=== PATIENT | female | born 1955 | race Caucasian/White ===

== ENCOUNTER 2024-07-01 17:49 | Inpatient (IN) | payer MEDICARE, SELFPAY ==
[2024-07-01] VITALS (10 sets, daily range): BP systolic 108–148; BP diastolic 50–86; BMI 43.4
--- NOTE | 2024-07-01 13:37 | ED.GENMED ---
History of Present Illness
General
Chief Complaint: Weakness
Source: patient
Time Seen by Provider: 07/01/24 13:19
History of Present Illness
History of Present Illness:
69yoF with a history of hypertension, insulin dependent type 2 diabetes, CKD, and prior L nephrectomy 2/2 renal cell carcinoma currently in remission presenting for evaluation of generalized weakness. She initially started with a cough about 2
weeks ago. She had a fever the first several days which resolved. Her cough is improving. She started to have generalized weakness and difficulty ambulating about 3 days ago. She has fallen several times over the past 3 days. She states she
becomes dizzy while ambulating and then falls to the ground. She denies any loss of consciousness. She also feels dehydrated and states her urine output is slightly decreased. Patient currently lives alone.
Phy Exam
General Physical Exam
General Presentation: well appearing and no apparent distress
General age: appears stated age
General Skin: warm and dry
General Habitus: normal
General Mental: alert
ENT Exam
ENT Exam: other (Ecchymosis/small hematoma to R frontal scalp)
Additional ENT: Dry mucous membranes
Cardiovascular Exam
Cardiovascular Exam: regular rate/rhythm
Pulmonary Exam
Pulmonary Exam: lungs clear, no respiratory distress, no wheezing and decreased breath sounds
Gastrointestinal Exam
Gastrointestinal Exam: non tender, soft and non distended
Barbara Coma Scale
Eye Opening: Spontaneous
Verbal Response: Oriented
Motor Response: Obeys Commands
GCS Total Score: 15
Skin Exam
Skin Exam: normal color and warm/dry
Psychiatric Exam
Psychiatric Exam: normal mood/affect
Course
Orders/Labs/Results
Orders:
Orders
07/01/24 13:26
EKG [Electrocardiogram (*1)] Urgent
Reason for Study: Fatigue / Weakness
EKG- Treatment ONCE
07/01/24 13:35
0.9% Sodium Chloride 1000 ml [Nss] 1,000 ml IV BOLUS
CR Shoulder - Right Min 2 View Urgent
Comment:
Reason For Exam: Pain, fall
07/01/24 13:36
CT Head W/o Iv Contrast Urgent
Comment:
Reason For Exam: Fall, head injury
CR Chest - 2 Views Urgent
Comment:
Reason For Exam: Cough
07/01/24 13:37
CT Abd/pel Without Iv Or Oral Urgent
Comment:
Reason For Exam: R flank pain
07/01/24 13:48
B-Hydroxybutyrate Urgent
Complete Blood Count/With Diff Urgent
Comprehensive Metabolic Panel Urgent
Magnesium Urgent
TSH Reflex To Free T4 Urgent
Troponin I Urgent
Venous Blood Gas Urgent
%Oxygen/Room Air: room air
07/01/24 14:24
0.9% Sodium Chloride 1000 ml [Nss] 1,000 ml IV BOLUS
07/01/24 Dinner
1800 calorie (15 carb) Diabetic
Cefepime HCl [Maxipime] 2,000 mg IV NOW STA
07/01/24 15:01
Vancomycin [Vancocin] 2,000 mg 0.9% Sodium Chloride 500 ml [Nss] 500 ml IV NOW
07/01/24 15:05
Bedside Glucose- Treatment ONCE
07/01/24 15:22
Urinalysis Reflex To Culture Urgent
Date Specimen was Collected: 07/01/24
Time Specimen was Collected: 15:20
Urine Microscopic Reflex Cult Urgent
Urine Culture Urgent
ANGELA Source: U
Specimen Description:
Obtained by: Random
Date Specimen was Collected: 07/01/24
Time Specimen was Collected: 15:20
07/01/24 15:36
Insulin Human Regular [Novolin R] 10 units IV NOW STA
07/01/24 15:51
Lactate Level [Lactic Acid] Urgent
Blood Culture Q30M
ANGELA Source: Blood/Venous
Specimen Description:
Blood Culture Q30M
ANGELA Source: Blood/Venous
Specimen Description:
07/01/24 17:13
Admit/Transfer Patient As Directed
Co-Sign Provider:
Level of Care: Inpatient admission
Assign to:: IMU- Intermediate Care
Physician / Group: Hospitalist
Diagnosis: Sepsis, RLL PNA
Reason for Hospitalization: Sepsis, RLL PNA
Expected length of stay greater than two midnights?: Yes
ELOS- Estimated Length of Stay in days: 3
I certify the patient meets the requirements for IP care: Yes
PRN Pain Medication Management As Directed
May give lesser potent ordered pain med per pt: Yes
preference::
Protocol:: Medication orders for pain may be administered in a
manner that supports deferring to patient preference
when the pt is:
- Requesting an ordered lesser potent pain medication.
Least to most potent pain medications are defined
as: acetaminophen < NSAID < tramadol < opioids
(morphine, oxycodone, hydromorphone).
- Requesting a lesser dose of the same medication IF
ORDERED.
- Requesting a less intrusive route of administration
if both routes are prescribed by the provider (PO <
IV).
07/01/24 17:15
Code Status As Directed
Resuscitation Status: Full Code
07/01/24 19:44
0.9% Sodium Chloride 1000 ml [Nss] 1,000 ml IV 150 mls/hr
Azithromycin 500 mg/250 ml [Zithromax Infusion] 500 mg in 250 ml IV Q24H
CefTRIAXone [Rocephin] 1,000 mg IV Q24H
Dextrose 50%-Water [Dextrose 50% Syringe] 12.5 grams IV [id number] PRN
Glucagon [GlucaGen] 1 mg IM PRN PRN
Rosuvastatin Calcium [Crestor] 40 mg PO QPM
07/01/24 19:44
Respiratory Culture/Gram Stain Routine
ANGELA Source: Sputum
Specimen Description:
Activity As Directed
Activity Level: Out of Bed-Early Mobility
Bedside Glucose Monitoring As Directed
Frequency: q4h
Additional Instructions:: Change to q6h if pt on TPN, tube feeding or not eating
Intake/ Output As Directed
Frequency: Per unit guidelines
Pneumatic Compression Sleeves As Directed
Type: Knee high
Vital Signs As Directed
Frequency: Per unit guidelines
Weight As Directed
Frequency: Once
Comment: on admission
Pt Eval And Treat Routine
Treatment: eval gait
Activity Level: With Assistance
DX Deep Vein Thrombosis Video Routine
07/01/24 20:00
Bupropion(12Hr)Sustain Release [WELLBUTRIN SR (12 hour sustained release)] 150 mg PO BID
Labetalol [Trandate] 200 mg PO BID
07/01/24 22:00
insulin glargine [Lantus Solostar U-100 Insulin] 20 unit SC HS
07/01/24 23:15
Basic Metabolic Panel Routine
07/02/24 06:00
Complete Blood Count/No Diff IN AM
Comprehensive Metabolic Panel IN AM
Glycohemoglobin (HgbA1c) IN AM
07/02/24 07:30
Insulin Aspart High Resistance [Novolog Flexpen-High Resistance] See Protocol SC AC
07/02/24 08:00
Aspirin Low Dose EC [Aspir Low (Enteric Coated)] 81 mg PO DAILY
Bumetanide [Bumex] 0.5 mg PO DAILY
Losartan [Cozaar] 100 mg PO DAILY
Multivitamin [Theragran] 1 tablet PO DAILY
07/03/24 08:00
Ergocalciferol [Drisdol (Vitamin D2)] DOSE units PO MO
Abnormal Lab Results
07/01/24 07/01/24 07/01/24
13:48 15:22 17:29
WBC 21.0 H 10^3/uL
(4.8-10.8)
MCV 79.0 L fL
(81.0-99.0)
RDW 15.2 H %
(11.5-14.5)
Abs Immat Gran (auto) 0.4 H 10^3/uL
(0-0.05)
Absolute Neuts (auto) 18.6 H 10^3/uL
(1.4-6.5)
Absolute Lymphs (auto) 0.8 L 10^3/uL
(1.2-3.4)
Absolute Monos (auto) 1.0 H 10^3/uL
(0.1-0.6)
Immature Gran % 1.9 H %
(0-0.5)
Neutrophils % 88.6 H %
(42.2-75.2)
Lymphocytes % 4.0 L %
(20.5-51.1)
Potassium 5.6 H mmol/L
(3.5-5.1)
Chloride 96 L mmol/L
(98-107)
Carbon Dioxide 19 L mmol/L
(22-30)
BUN 69 H mg/dl
(7-17)
Creatinine 2.7 H mg/dL
(0.6-1.0)
Glucose 488 H* mg/dl
(70-99)
ALT 38 H U/L
(0-35)
Ur Occult Blood Reflex 3+ A
(Negative)
Leukocyte Esterase Rfl 1+ A
(Negative)
Urine RBC 7-10 A /HPF
(0-2)
Urine WBC (Reflex) 26-30 A /HPF
(0-5)
Urine Bacteria (Reflex) Moderate A
(Negative)
Urine Glucose 3+ A
(Negative)
Urine Albumin (Reflex) 1+ A
(Neg - Trace)
B-Hydroxybutyrate 0.66 H mmol/L
(0.02-0.27)
POC Glucose 331 H mg/dl
(70-99)
07/01/24 13:48
07/01/24 13:48
Vital Signs
Initial and Last Documented VS:
Initial Vital Signs
Temp Pulse Resp BP Pulse Ox
97.7 F 68 18 135/84 95
07/01/24 13:18 07/01/24 13:18 07/01/24 13:18 07/01/24 13:18 07/01/24 13:18
Last Documented Vital Signs
Temp Pulse Resp BP Pulse Ox
97.7 F 82 24 112/73 95
07/01/24 13:18 07/01/24 19:00 07/01/24 19:00 07/01/24 19:00 07/01/24 18:00
MDM/Problems Addressed
Differential Diagnosis Includes:
69yoF here with generalized weakness and frequent falls x 3 days. Started with a cough 2 weeks ago and R flank pain last week. She is afebrile and stable. She has chronically ill appearing in no acute distress. Mucous membranes are dry. There is
a right frontal scalp contusion. Differential diagnosis includes but is not limited to: Dehydration, UTI, kidney stone, pneumonia, failure to thrive, less likely but consider PE
Initial ED plan: Check cardiac labs, VBG, beta hydroxybutyrate, magnesium, UA, EKG, chest x-ray, CT head, and CT abdomen pelvis without contrast. IV fluid bolus.
*EKG
Interpreted by ED Provider?: Yes
EKG Intrepretation Date: 07/01/24
Heart Rate: 63
Rate: normal
Rhythm: sinus
[place]: normal axis
Interval: normal interval
QRS Pattern: normal QRS
Ischemia: no ischemia
*Critical Care Note
Total Time (30-74mins, 75-104mins- exclusive of procedures): Not Applicable
Update Note
Update Note:
Labs reveal a glucose of 488. Venous pH within normal limits and urine ketones are negative. Creatinine 2.7, unclear baseline. Imaging shows right lower lobe pneumonia with a small parapneumonic effusion. White count elevated at 21. Lactate,
blood cultures, and IV cefepime/vancomycin ordered. She was admitted for further evaluation and management.
ED Attending Note
-
Portions of this chart may have been created with voice recognition software.� Occasional wrong word or��sound alike� substitutions may have occurred due to the inherent limitations of voice recognition software.
Discharge Plan
Departure
Patient Disposition: Admit
Date of Disposition: 07/01/24
Time of Disposition: 15:40
Presentation/result/management discussed w/ accepting MD/DO: Hospitalist
Discharge Problem:
Right lower lobe pneumonia, Hyperglycemia, Acute kidney injury, Frequent falls
Interventions
Interventions:
*Risk Screen - Suicide Last Done: 07/01/24 13:41
*General Assessment Last Done: 07/01/24 13:40
*Neglect/Abuse Screening Last Done: 07/01/24 13:41
ED- Fall Risk Assessment Last Done: 07/01/24 13:28
*ED COVID-19 Vaccine History Last Done: 07/01/24 13:40
ED- Cardiac Assessment Last Done: 07/01/24 13:28
ED- Neurological Assessment Last Done: 07/01/24 13:28
ED- Pulmonary Assessment Last Done: 07/01/24 13:28
[2024-07-01] MEDS: NSS 1000 IV ×3 (13:44→20:16)
[2024-07-01 13:59] LABS: Venous Blood Gas B.E. -3.3 mmol/L (-4 to +4); Venous Blood Gas HCO3 22.1 mmol/L (22-27); Venous Blood Gas O2 Sat % 70.4 %; Venous Blood Gas pCO2 40 mmHg (35-48); Venous Blood Gas pH 7.35 (7.32-7.43); Venous Blood Gas pO2 41 mmHg (30-50)
[2024-07-01 14:02] LABS: Venous Blood Gas O2 Therapy ROOM AIR
[2024-07-01 14:14] LABS: % Basophils 0.3 % (0-2); % Eosinophils 0.3 % (0-6); % Immature Granulocytes 1.9 % (0-0.5); % Monocytes 4.9 % (1.7-9.3); % Neutrophils 88.6 % (42.2-75.2); Absolute Basophils 0.1 10^3/uL (0-0.2); Absolute Eosinophils 0.1 10^3/uL (0-0.7); Absolute Immature Granulocytes 0.4 10^3/uL (0-0.05); Absolute Lymphocytes 0.8 10^3/uL (1.2-3.4); Absolute Neutrophils 18.6 10^3/uL (1.4-6.5); Hematocrit 39.2 % (37.0-47.0); Hemoglobin 13.6 g/dL (12.0-16.0); Mean Corp Hgb Conc. 34.7 g/dL (33.0-37.0); Mean Corpuscular Hgb 27.4 pg (27.0-31.0); Nucleated Red Blood Cells % 0 %; Platelet Count 216 10^3/uL (130-400); Red Blood Cell Count 4.96 10^6/uL (4.20-5.40); Red Cell Dist. Width 15.2 % (11.5-14.5)
[2024-07-01 14:20] LABS: Troponin I < 0.012 ng/ml
[2024-07-01 14:21] LABS: ALT (SGPT) 38 U/L (0-35); AST (SGOT) 33 U/L (14-36); Albumin 4.3 g/dl (3.5-5.0); Alkaline Phosphatase 122 U/L (38-126); Blood Urea Nitrogen 69 mg/dl (7-17); Calcium 10.2 mg/dl (8.4-10.2); Carbon Dioxide 19 mmol/L (22-30); Chloride 96 mmol/L (98-107); Estimated Creatinine Clearance 24 ml/min; Glucose 488 mg/dl (70-99); Magnesium 2.3 mg/dl (1.6-2.3); Potassium 5.6 mmol/L (3.5-5.1); Sodium 136 mmol/L (135-145); Total Protein 8.1 g/dl (6.3-8.2); eGFR 18.52
[2024-07-01 14:40] LABS: B-Hydroxybutyrate 0.66 mmol/L (0.02-0.27)
[2024-07-01 14:46] LABS: TSH Reflex To Free T4 1.44 uIU/ml (0.47-4.68)
[2024-07-01 15:29] LABS: Urine Albumin 1+ (Neg - Trace); Urine Bilirubin Negative (Negative); Urine Character Slightly Cloudy (Clear); Urine Color Yellow; Urine Glucose 3+ (Negative); Urine Ketone Negative (Negative); Urine Leukocyte 1+ (Negative); Urine Nitrite Negative (Negative); Urine Occult Blood 3+ (Negative); Urine Urobilinogen Negative (Neg - 1+)
[2024-07-01 15:38] LABS: Urine Granular Cast 0-2 /LPF (0)
[2024-07-01 15:39] LABS: Urine Bacteria Moderate (Negative); Urine White Cell 26-30 /HPF (0-5)
[2024-07-01] MEDS: VANCOCIN 540 MG IV (15:45)
[2024-07-01] MEDS: MAXIPIME 2000 MG IV (16:07)
[2024-07-01] MEDS: NOVOLIN R 10 UNITS IV (16:08)
[2024-07-01 16:17] LABS: Lactic Acid 1.7 mmol/L (0.7-2.0)
--- NOTE | 2024-07-01 16:47 | HPS.HSE ---
Family Physician
-
Family Physician: Maury Harman
Chief Complaint
-
Cough
History of Present Illness
69yo woman with a history of:
hypertension,
insulin dependent type 2 diabetes,
CKD
prior L nephrectomy 2/2 renal cell carcinoma (currently in remission)
presents for evaluation of generalized weakness. She also started with a cough about 2 weeks ago. She had a fever which resolved. Her cough is improving. However, she started to have generalized weakness and difficulty ambulating about 3 days
ago. She has fallen several times over the past 3 days. She states she becomes dizzy while ambulating and then fell to the ground. She denies any loss of consciousness. She also feels she is dehydrated and states that her urine output is
slightly decreased. At the time of my interview, she stated she had right flank pain, and was able to speak in full sentences. She usually gets her care at a different hospital.
Medical History
Past Medical History
Past Medical History: Reports Other
Additional Past Medical History:
essential hypertension,
insulin dependent type 2 diabetes,
CKD,
prior L nephrectomy 2/2 renal cell carcinoma (currently in remission)
Past Surgical History: Reports Other
Additional Past Surgical History:
See above
Social History
Tobacco: Non-smoker
Alcohol: None
Drug: None
Personal: Single
Living: Alone
Family History
Family History: Not pertinent
Allergies / Home Medications
Allergies reflects when Allergies were last updated in [employer].
Home Medications with original date entered in [employer]
Allergy/Medication List:
Allergies
Allergy/AdvReac Type Severity Reaction Status Date / Time
No Known Allergies Allergy Verified 07/01/24 13:18
Home Medications
aspirin 81 mg tablet,delayed release 81 mg PO DAILY 07/01/24
bumetanide 0.5 mg tablet 0.5 mg PO DAILY 07/01/24
bupropion HCl 150 mg tablet,12 hr sustained-release (Wellbutrin SR) 150 mg PO BID 07/01/24
ergocalciferol (vitamin D2) 1,250 mcg (50,000 unit) capsule 1,250 mcg PO MO 07/01/24
insulin glargine 100 unit/mL (3 mL) subcutaneous pen (Lantus Solostar U-100 Insulin) 20 unit SC HS 07/01/24
insulin lispro 100 unit/mL subcutaneous solution 15 unit SC AC 07/01/24
labetalol 200 mg tablet 200 mg PO BID 07/01/24
losartan 100 mg tablet 100 mg PO DAILY 07/01/24
rosuvastatin 40 mg tablet (Crestor) 40 mg PO QPM 07/01/24
therapeutic multivitamin 1 tab PO DAILY 07/01/24
Review of Systems
-
History Source: Patient
A 12 point ROS was completed and negative except as noted: Yes
Physical Exam
Vital Signs
Vital Signs
Temp Pulse Resp BP Pulse Ox
97.7 F 68 18 135/84 95
07/01/24 13:18 07/01/24 13:18 07/01/24 13:18 07/01/24 13:18 07/01/24 13:18
Physical Exam
General: Well Developed, Well Nourished, No Apparent Distress, Comfortable and Morbidly Obese
HEENT: NormoCephalic, Nose Appears Normal and Ears Appear Normal
Respiratory: Crackles (right side) and Decreased Breath Sounds
Cardiac: S1/S2 and Regular Rhythm
GI: Soft and Non Tender
Musculoskeletal: No Clubbing and No Cyanosis
Skin: Warm and Dry; No Rash or Jaundice
Neuro: Awake, Alert, Oriented and AO x 3
Psych: Calm
Laboratory Results
-
07/01/24 13:48
07/01/24 13:48
Laboratory Results
Lactic Acid 1.7 mmol/L (0.7-2.0) 07/01/24 15:51
Total Bilirubin 1.0 mg/dl (0.2-1.3) 07/01/24 13:48
AST 33 U/L (14-36) 07/01/24 13:48
ALT 38 U/L (0-35) H 07/01/24 13:48
Alkaline Phosphatase 122 U/L (38-126) 07/01/24 13:48
Troponin I < 0.012 ng/ml 07/01/24 13:48
Data Reviewed
-
Lab Data: Labs Reviewed by me
Impression/Plan
-
IMPRESSION:
69 woman with IDDM, CKD, comes in with PNA. Significant finding:
WBC 21.0
K 5.6
BUN/Creat 69/2.7
Glucose 488
CT: RLL PNA, Diverticulosis, Fibroids. Hepatomegaly, head contusion and hematoma
PLAN:
1. Sepsis, source RLL PNA, WBC 21.0
IV abx and IV fluids per sepsis protocol
Stepdown admit
2. Acute on chronic renal failure - baseline BUN/Creat not known, currently 69/2.7
IV fluids as described above
Recheck in am
3. Elevated blood glucose, 488, VBG ok. Likely secondary to acute illness
IV glucose in ED
SQ glucose thereafter
Check FS frequently
DM diet
4. Elevated K - likey from renal failure
IV fluids
recheck tonight
5. Not a regular patient here.
Obtain medical records from PCP/Usual hospital
Full code
VCD for DVTp
[2024-07-01 17:34] LABS: Glucose - Point of Care 331 mg/dl (70-99)
[2024-07-01 19:00] LABS: Glucose - Point of Care 308 mg/dl (70-99)
--- NOTE | 2024-07-01 20:00 | PTCARENOTE ---
Patient received from ED, AAOX3. NSR on monitor, trace lower extremity edema. Lungs diminished bilaterally, pulse ox 93% on room air. Occasional cough noted. Abdomen round obese. Purewick maintained. #18 g in RFA flushed and patent. Plan of
care discussed, call mckinley within reach
[2024-07-01] MEDS: CRESTOR 40 MG PO (20:16)
[2024-07-01] MEDS: TRANDATE 200 MG PO (20:16)
[2024-07-01] MEDS: ZITHROMAX INFUSION 250 IV (20:16)
[2024-07-01] MEDS: TYLENOL 650 MG PO (21:22)
[2024-07-01] MEDS: WELLBUTRIN SR (12 hour sustained release) 150 MG PO (21:22)
[2024-07-01] MEDS: LANTUS 0.2 UNITS SC (21:28)
[2024-07-01 21:39] LABS: Glucose - Point of Care 372 mg/dl (70-99)
[2024-07-01 23:39] LABS: Blood Urea Nitrogen 61 mg/dl (7-17); Calcium 9.1 mg/dl (8.4-10.2); Carbon Dioxide 20 mmol/L (22-30); Chloride 104 mmol/L (98-107); Estimated Creatinine Clearance 33 ml/min; Glucose 355 mg/dl (70-99); Sodium 139 mmol/L (135-145); eGFR 28.23
[2024-07-02] VITALS (17 sets, daily range): BP systolic 70–139; BP diastolic 55–88; PULSE 82–85; O2SAT 94; BMI 41.9
[2024-07-02] MEDS: NSS 1000 IV ×2 (02:57→09:14)
[2024-07-02 04:39] LABS: Hematocrit 33.5 % (37.0-47.0); Hemoglobin 11.5 g/dL (12.0-16.0); Mean Corp Hgb Conc. 34.3 g/dL (33.0-37.0); Mean Corpuscular Hgb 27.6 pg (27.0-31.0); Mean Corpuscular Volume 80.5 fL (81.0-99.0); Mean Platelet Volume 9.2 fL (7.4-10.4); Platelet Count 182 10^3/uL (130-400); Red Blood Cell Count 4.16 10^6/uL (4.20-5.40); Red Cell Dist. Width 15.1 % (11.5-14.5); White Blood Cell Count 17.3 10^3/uL (4.8-10.8)
[2024-07-02 05:13] LABS: ALT (SGPT) 29 U/L (0-35); AST (SGOT) 28 U/L (14-36); Albumin 3.3 g/dl (3.5-5.0); Alkaline Phosphatase 92 U/L (38-126); Blood Urea Nitrogen 53 mg/dl (7-17); Carbon Dioxide 18 mmol/L (22-30); Chloride 108 mmol/L (98-107); Estimated Creatinine Clearance 35 ml/min; Glucose 317 mg/dl (70-99); Potassium 4.9 mmol/L (3.5-5.1); Sodium 142 mmol/L (135-145); Total Bilirubin 0.7 mg/dl (0.2-1.3); Total Protein 6.5 g/dl (6.3-8.2); eGFR 30.12
[2024-07-02] MEDS: STERILE WATER FOR INJECTION 10 ML IV (07:22)
[2024-07-02] MEDS: TYLENOL 650 MG PO ×2 (07:22→20:11)
[2024-07-02] MEDS: ROCEPHIN 1000 MG IV (07:22)
[2024-07-02] MEDS: COZAAR 100 MG PO (07:23)
[2024-07-02] MEDS: BUMEX 0.5 MG PO (07:23)
[2024-07-02] MEDS: ASPIR LOW (ENTERIC COATED) 81 MG PO (07:24)
[2024-07-02] MEDS: TRANDATE 200 MG PO (07:24)
[2024-07-02] MEDS: WELLBUTRIN SR (12 hour sustained release) 150 MG PO ×2 (07:24→20:10)
[2024-07-02] MEDS: THERAGRAN 1 TABLET PO (07:29)
[2024-07-02 08:33] LABS: Glycohemoglobin (HgbA1c) 12.7 % (4.0-5.6)
[2024-07-02 08:58] LABS: Glucose - Point of Care 352 mg/dl (70-99)
[2024-07-02] MEDS: NOVOLOG FLEXPEN-HIGH RESISTANCE 12 UNITS SC (09:13)
[2024-07-02 13:06] LABS: Glucose - Point of Care 323 mg/dl (70-99)
[2024-07-02] MEDS: NOVOLOG FLEXPEN-HIGH RESISTANCE 10 UNITS SC (13:17)
[2024-07-02] MEDS: NOVOLOG FLEXPEN 15 UNITS SC ×2 (13:17→17:24)
--- NOTE | 2024-07-02 13:59 | PTCARENOTE ---
Pt received in bed @ 0700. Assisted oob to chair with minimal assistance. PRN Tylenol given for 5/10 right flank pain associated coughing with (+) effect. SaO2 94% on room air. Lungs diminished. Diminished. Occasional nonproductive cough. Not able
to produce sputum for sample. Sinus rhythm on hospital monitor. Trace LE edema. BSC x1, brown formed bowel movement. Voiding antonio urine into BSC. 1800 diabetic diet. High blood sugars. Meal time insulin increased to 15 units standing and high
sliding scale. Pt with orthostatic hypotension working with PT; using rolling walker x1 with ambulation. Remains oob in chair. Orders to downgrade to telemetry.
--- NOTE | 2024-07-02 15:24 | W.PN.HOSP.TC ---
Today's Communication/Plan
-
see note
Assessment / Plan
Assessment / Plan
1. Right lower lobe pneumonia
Sepsis -leukocytosis/Hypotension -POA
-CT abdomen pelvis showing right lower lobe consolidation on imaging
-Check covid
-Patient to have some dry cough no significant phlegm production.
-Maintain on empiric Rocephin/azithromycin
-Hold blood pressure medication providing IV fluid boluses and midodrine
2. ISAAC on presumed CKD
Left nephrectomy with h/o RCC
-Patient creatinine unknown. Admission creatinine of 2.7 yesterday, trending down and 1.8
-Likely related to volume depletion/hypotension related
-Bladder scan/straight cath protocol ordered
-Avoid nephrotoxic medication
3. Type 2 diabetes mellitus -uncontrolled
-Patient hemoglobin A1c of 12.7
-Managed by primary care physician, in process of seeing endocrinology
-Maintained on Lantus with NovoLog 15 unit AC and sliding scale
-Diabetes respiratory center consulted for further help
4. Essential hypertension
-Hold losartan/labetalol due to hypotension/ISAAC
-Resume as clinically appropriate
5. Chronic back pain
Right foot numbness
-Suspected lumbar radiculopathy has diabetic neuropathy is usually symmetric
-CT abdomen pelvis showing did not show any major spinal changes
-Good palpable pulse on lower extremity, arterial Doppler ordered
6. HLD
- maintain on crestor
7. Orthostatic hypotension
-Patient had orthostatic hypotension and had low blood pressure when with standing up
-hold BP Medication, LE compression stockings/midodrine ordered
SCD
Full code
Total time spent 55 minutes
Transferred to [facility]
Anticipated Discharge: 24 - 48 hours
Subjective/Interval History
-
Date of Service: July 02, 2024
Complaining some back pain and RLE numbness
have some right sided chest pain
afebrile in night
have soft BP in the morning
Objective Data
-
Labs:
Laboratory Results
07/02/24
04:32
WBC 17.3 H
Hgb 11.5 L
Hct 33.5 L
Plt Count 182
Sodium 142
Potassium 4.9
Chloride 108 H
Carbon Dioxide 18 L
BUN 53 H
Creatinine 1.8 H
Glucose 317 H
Calcium 9.0
Total Bilirubin 0.7
AST 28
ALT 29
Alkaline Phosphatase 92
Vital Signs:
Vital Signs
Temp Pulse Resp BP Pulse Ox
98.3 F 86 24 84/71 94
07/02/24 11:40 07/02/24 08:44 07/02/24 08:44 07/02/24 08:44 07/02/24 13:32
Review of Systems
-
Respiratory: Reports Cough and Pleurisy (Right sided)
Cardiac: Reports No Symptoms
Abdomen/GI: Reports No Symptoms
Physical Exam
-
General: No Apparent Distress and Comfortable
HEENT: Negative Oxygen
Respiratory: Clear to Auscultation
Cardiac: Regular Rhythm and S1/S2; Negative Murmur or Rub
GI: Soft, Nontender, Nondistended and Normal Bowel Sounds
Musculoskeletal: No Edema
Neuro: Awake, Alert, Oriented, No Motor Deficits and Nonfocal/Grossly Intact
Psych: Calm
[2024-07-02 16:38] LABS: COVID-19 Antigen Negative (Negative)
[2024-07-02 17:11] LABS: Glucose - Point of Care 263 mg/dl (70-99)
[2024-07-02] MEDS: NOVOLOG FLEXPEN-HIGH RESISTANCE 7 UNITS SC (17:24)
[2024-07-02] MEDS: CRESTOR 40 MG PO (17:50)
[2024-07-02] MEDS: ProAmatine 10 MG PO (17:50)
[2024-07-02] MEDS: ZITHROMAX INFUSION 250 IV (20:11)
[2024-07-02] MEDS: LANTUS 0.2 UNITS SC (21:28)
[2024-07-02 21:37] LABS: Glucose - Point of Care 238 mg/dl (70-99)
[2024-07-02] MEDS: MUCINEX 600 MG PO (21:52)
[2024-07-02] MEDS: TESSALON PERLES 200 MG PO (21:52)
--- NOTE | 2024-07-03 00:02 | PTCARENOTE ---
Report given to VINICIO Hancock. Pt transferred via wheelchair to [facility]2. No belongings except cell phone- transferred w/ patient.
[2024-07-03 00:16] VITALS: BP 152/77; BMI 43.5
--- NOTE | 2024-07-03 00:20 | PTCARENOTE ---
Patient transferred from IMU. Patient AOx3, able to walk into room from hallway. Assessed patient (see flowsheet) and oriented to new room. call mckinley within reach. Safety maintained. No questions at this time.
[2024-07-03] MEDS: TESSALON PERLES 200 MG PO ×3 (02:52→22:03)
[2024-07-03] MEDS: TYLENOL 650 MG PO (02:54)
--- NOTE | 2024-07-03 07:01 | PN.DE.MGMTRT ---
Insulin Management
- -
07/03/2024: Diabetes Management Consult
69 year old female admitted with Right lower lobe pneumonia. PMH: HTN, Renal cell carcinoma s/p L nephrectomy and T2DM. Pt states was taking Lantus 20 units @ HS and Lispro 15 units AC prior to admission. Has a working meter- [employer] with enough
supplies at home. States her PCP recommended she starts seeing the Endocrine [facility] next to the hospital. Provided her with name of practice and encouraged her to call as soon as she is feeling better.
A1C 12.7% Cr 1.7, eGFR 32.26, glucose on admission was 488 and has consistently remained elevated >200.
Pt awake, alert, oriented, sitting up at edge of bed, noted for exertional SOB and cough. Able to discuss diabetes mgt.
07/02 Premeal glucose 263 to 352, requiring 7 -12 units of corrective insulin. Received Lantus 20 units @ HS, FBG 278 (V) this AM.
Will change Lantus to 20 units BOD and increase AC NovoLog to 20 units. Cont moderate corrective insulin
Will check 3am blood sugar. Place Dietary consult for nutrition counseling.
Will follow and make further insulin adjustments if needed
Diabetes History
- -
Type of Diabetes: 2 requiring insulin
Pre-Admission Diabetes Regimen
Lab Results
Hemoglobin A1c 12.7 % (4.0-5.6) H 07/02/24 04:32
Insulin Pump Settings
IP Diabetes Regimen
07/02/24 07/02/24 07/02/24
08:47 12:55 17:00
POC Glucose 352 H 323 H 263 H
07/02/24
21:26
POC Glucose 238 H
Patient Education
[2024-07-03 07:14] LABS: Hematocrit 35.1 % (37.0-47.0); Hemoglobin 11.9 g/dL (12.0-16.0); Mean Corp Hgb Conc. 33.9 g/dL (33.0-37.0); Mean Corpuscular Hgb 27.7 pg (27.0-31.0); Mean Corpuscular Volume 81.6 fL (81.0-99.0); Mean Platelet Volume 8.8 fL (7.4-10.4); Platelet Count 196 10^3/uL (130-400); Red Cell Dist. Width 15.5 % (11.5-14.5); White Blood Cell Count 16.8 10^3/uL (4.8-10.8)
[2024-07-03 07:38] VITALS: BP 137/80
[2024-07-03 08:01] LABS: Blood Urea Nitrogen 43 mg/dl (7-17); Calcium 9.6 mg/dl (8.4-10.2); Carbon Dioxide 22 mmol/L (22-30); Chloride 103 mmol/L (98-107); Estimated Creatinine Clearance 37 ml/min; Glucose 278 mg/dl (70-99); Iron 29 ug/dl (37-170); Potassium 4.8 mmol/L (3.5-5.1); Sodium 141 mmol/L (135-145); eGFR 32.26
[2024-07-03] MEDS: NOVOLOG FLEXPEN-HIGH RESISTANCE 278 UNITS SC (08:05)
[2024-07-03] MEDS: NOVOLOG FLEXPEN 15 UNITS SC (08:06)
[2024-07-03] MEDS: WELLBUTRIN SR (12 hour sustained release) 150 MG PO ×2 (08:07→20:27)
[2024-07-03] MEDS: THERAGRAN 1 TABLET PO (08:08)
[2024-07-03] MEDS: STERILE WATER FOR INJECTION 10 ML IV (08:08)
[2024-07-03] MEDS: ASPIR LOW (ENTERIC COATED) 81 MG PO (08:08)
[2024-07-03] MEDS: MUCINEX 600 MG PO ×2 (08:08→20:27)
[2024-07-03] MEDS: ROCEPHIN 1000 MG IV (08:09)
[2024-07-03] MEDS: DRISDOL (VITAMIN D2) 50000 UNITS PO (08:16)
[2024-07-03 08:22] LABS: Glucose - Point of Care 285 mg/dl (70-99)
[2024-07-03 08:38] VITALS: BP 137/80
--- NOTE | 2024-07-03 08:51 | W.PN.HOSP.TC ---
Today's Communication/Plan
-
Antibiotics. Chest x-ray. Echocardiogram
Assessment / Plan
Assessment / Plan
Physical exam:
General: Acutely ill
HEENT: Normocephalic, Atraumatic and Moist Mucous Membranes
Respiratory: Decreased breath sounds at the bases; Negative Wheezes, Rales or Rhonchi
Cardiac: Regular Rhythm and S1/S2
GI: Soft, Nontender and Nondistended
Musculoskeletal: No Clubbing, No Cyanosis and No Edema
Neuro: Awake, Alert and Oriented
Psych: Calm
A/P:
1. Probable right lower lobe pneumonia, concerns for parapneumonic effusion, rule out empyema or loculated effusion
Probable sepsis -leukocytosis/Hypotension -POA
-CT abdomen pelvis showing right lower lobe consolidation on imaging
-Check covid
-Patient to have some dry cough no significant phlegm production.
-Maintain on empiric Rocephin/azithromycin
-Stop midodrine
-No IV fluid
-Obtain chest x-ray PA lateral to evaluate interval pneumonia and effusion
-Obtain echocardiogram
-WBC 21--> 16.8 today
-Blood cultures no growth
-UA abnormal upon admission
2. ISAAC on presumed CKD
Left nephrectomy with h/o RCC
-Patient creatinine unknown. Admission creatinine of 2.7--> down to 1.7 today
-Continue to hold ARB, losartan
-Likely related to volume depletion/hypotension related
-Bladder scan/straight cath protocol ordered
-Avoid nephrotoxic medication
3. Type 2 diabetes mellitus -uncontrolled
-Patient hemoglobin A1c of 12.7
-Managed by primary care physician, in process of seeing endocrinology
-Maintained on Lantus with NovoLog 15 unit AC and sliding scale--> increased to Lantus 20 units twice a day and NovoLog 20 units before meal
-Diabetes [employer] consulted for further help
4. Essential hypertension
-Hold losartan/labetalol due to hypotension/ISAAC
-Resume as clinically appropriate
5. Chronic back pain
Right foot numbness
-Suspected lumbar radiculopathy has diabetic neuropathy is usually symmetric
-CT abdomen pelvis showing did not show any major spinal changes
-Good palpable pulse on lower extremity, arterial Doppler ordered
6. HLD
- maintain on crestor
7. Orthostatic hypotension
-Patient had orthostatic hypotension and had low blood pressure when with standing up
-hold BP Medication, LE compression stockings
-Blood pressure on the high side today so discontinue midodrine but recheck orthostatics twice a day to see if she needs to be back on it.
DVT prophylaxis:
SCD and add heparin SQ
CODE STATUS:
Full code
Total time spent on today's encounter was 52 minutes which included time spent in counseling the patient/family regarding diagnosis and treatment plan as listed above, goals of care, and symptom management. Case was discussed with nursing staff,
specialists, and care coordinators/case management. All labs and imaging personally reviewed by me. Remainder the time spent in detailed review of previous records, lab data, imaging, and other medical provider documentation.
Anticipated Discharge: 24 - 48 hours
Subjective/Interval History
-
Date of Service: July 03, 2024
Patient still having some cough and some shortness of breath. Feeling weak overall. Afebrile
Objective Data
-
Labs:
Laboratory Results
07/03/24
06:59
WBC 16.8 H
Hgb 11.9 L
Hct 35.1 L
Plt Count 196
Sodium 141
Potassium 4.8
Chloride 103
Carbon Dioxide 22
BUN 43 H
Creatinine 1.7 H
Glucose 278 H
Calcium 9.6
Vital Signs:
Vital Signs
Temp Pulse Resp BP Pulse Ox
98.2 F 94 18 137/80 94
07/03/24 07:38 07/03/24 07:38 07/03/24 07:38 07/03/24 07:38 07/03/24 07:38
I&O
07/02/24 07/03/24 07/04/24
06:59 06:59 06:59
Intake Total 2189 / 2189
Balance 2189
[2024-07-03] MEDS: LANTUS 0.2 UNITS SC ×2 (09:36→22:04)
[2024-07-03] MEDS: ProAmatine PO ×2 (11:30→13:31)
[2024-07-03 11:44] LABS: Glucose - Point of Care 320 mg/dl (70-99)
[2024-07-03] MEDS: NOVOLOG FLEXPEN 20 UNITS SC ×2 (13:31→17:38)
[2024-07-03] MEDS: NOVOLOG FLEXPEN-HIGH RESISTANCE 10 UNITS SC (13:31)
[2024-07-03 14:45] VITALS: BP 131/65
--- NOTE | 2024-07-03 15:03 | CM ---
Alert awake oriented patient who lives alone in a condo with 1 step to enter.She is independent in driving and in all activities of daily living.She has a dagt Selene that lives near by. PT OT jah said VN VS SNF.She said that her brother Zachery from
[place] will stay with her after dc.
No adaptive devices
Never had VN/SNF
Pharmacy [facility]
PCP Dr Taylor
PLAN VN VS SNF
[2024-07-03 15:09] VITALS: BP 148/84; BP 166/76; PULSE 101; O2SAT 95
[2024-07-03] MEDS: HEPARIN 5000 UNITS SC ×2 (17:38→23:18)
[2024-07-03] MEDS: CRESTOR 40 MG PO (17:38)
[2024-07-03] MEDS: NOVOLOG FLEXPEN-HIGH RESISTANCE 7 UNITS SC (17:39)
[2024-07-03 17:42] LABS: Glucose - Point of Care 264 mg/dl (70-99)
[2024-07-03] MEDS: ZITHROMAX INFUSION 250 IV (20:26)
[2024-07-03 21:12] LABS: Glucose - Point of Care 290 mg/dl (70-99)
[2024-07-03 23:57] VITALS: BP 158/83
[2024-07-04 04:07] LABS: Glucose - Point of Care 249 mg/dl (70-99)
--- NOTE | 2024-07-04 07:15 | PN.DE.MGMTRT ---
Insulin Management
- -
07/04/2024: Diabetes Management Consult Follow up
69 year old female admitted with Right lower lobe pneumonia. PMH: HTN, Renal cell carcinoma s/p L nephrectomy and T2DM. Pt states was taking Lantus 20 units @ HS and Lispro 15 units AC prior to admission. Has a working meter- OneTouch with enough
supplies at home. States her PCP recommended she starts seeing the Endocrine group next to the hospital. Provided her with name of practice and encouraged her to call as soon as she is feeling better.
A1C 12.7% Cr 1.7, eGFR 32.26, glucose on admission was 488 and has consistently remained elevated >200.
Pt awake, alert, oriented, sitting out of bed. Able to discuss diabetes mgt. Her primary is Dr. Stephen Harman.
07/03 Lantus dose was changed to BID, patient received AM dose 07/03. Premeal glucose 264 to 320, requiring 7 -12 units of corrective insulin.
07/04 4am glucose 249. Cr 1.6, eGFR 34.70. Diet changed today from 1800 to 1600 calorie, BID lantus increased from 20 units to 25 units. AC novolog changed from 20 to 25 units with moderate corrective insulin.
Will follow and make further insulin adjustments if needed
I spoke with patients nurse regarding changes.
Diabetes History
- -
Type of Diabetes: 2 requiring insulin
Pre-Admission Diabetes Regimen
07/03/24
06:59
Creatinine 1.7 H
Lab Results
Hemoglobin A1c 12.7 % (4.0-5.6) H 07/02/24 04:32
Insulin Pump Settings
IP Diabetes Regimen
07/03/24 07/03/24 07/03/24
06:59 08:21 11:43
Glucose 278 H
POC Glucose 285 H 320 H
07/03/24 07/03/24 07/04/24
17:40 21:11 04:05
Glucose
POC Glucose 264 H 290 H 249 H
Meal type: Lunch
Meal type: Breakfast
Amount consumed: 100%
Amount consumed: 100%
Patient Education
[2024-07-04 07:25] VITALS: BP 133/61
[2024-07-04 07:27] LABS: Hematocrit 38.1 % (37.0-47.0); Hemoglobin 12.8 g/dL (12.0-16.0); Mean Corp Hgb Conc. 33.6 g/dL (33.0-37.0); Mean Corpuscular Hgb 27.9 pg (27.0-31.0); Mean Corpuscular Volume 83.2 fL (81.0-99.0); Platelet Count 230 10^3/uL (130-400); Red Blood Cell Count 4.58 10^6/uL (4.20-5.40); Red Cell Dist. Width 15.1 % (11.5-14.5); White Blood Cell Count 19.1 10^3/uL (4.8-10.8)
[2024-07-04 07:34] LABS: Blood Urea Nitrogen 36 mg/dl (7-17); Calcium 9.6 mg/dl (8.4-10.2); Carbon Dioxide 17 mmol/L (22-30); Chloride 105 mmol/L (98-107); Estimated Creatinine Clearance 40 ml/min; Glucose 266 mg/dl (70-99); Potassium 4.1 mmol/L (3.5-5.1); Sodium 141 mmol/L (135-145)
[2024-07-04 07:55] LABS: Glucose - Point of Care 289 mg/dl (70-99)
[2024-07-04] MEDS: NOVOLOG FLEXPEN-MODERATE RESISTANCE 5 UNITS SC ×2 (08:05→12:41)
[2024-07-04] MEDS: NOVOLOG FLEXPEN 25 UNITS SC ×3 (08:06→17:51)
[2024-07-04] MEDS: LANTUS 0.25 UNITS SC ×2 (08:07→21:09)
[2024-07-04] MEDS: ROCEPHIN 1000 MG IV (08:08)
[2024-07-04] MEDS: MUCINEX 600 MG PO ×2 (08:08→19:37)
[2024-07-04] MEDS: ASPIR LOW (ENTERIC COATED) 81 MG PO (08:08)
[2024-07-04] MEDS: STERILE WATER FOR INJECTION 10 ML IV (08:08)
[2024-07-04] MEDS: HEPARIN 5000 UNITS SC ×3 (08:08→22:59)
[2024-07-04] MEDS: THERAGRAN 1 TABLET PO (08:09)
[2024-07-04] MEDS: WELLBUTRIN SR (12 hour sustained release) 150 MG PO ×2 (08:09→19:38)
[2024-07-04] MEDS: FLUSH (NSS) 1 FLUSH IV (08:09)
[2024-07-04] MEDS: TESSALON PERLES 200 MG PO ×2 (08:19→16:43)
--- NOTE | 2024-07-04 08:30 | W.PN.HOSP.TC ---
Addendum entered and electronically signed by Rajendra Acosta MD 07/04/24 13:39:
Hyperkalemia, POA, now resolved
Original Note:
Today's Communication/Plan
-
ID consult. Restart IV fluids. Continue antibiotics
Assessment / Plan
Assessment / Plan
Physical exam:
General: Acutely ill
HEENT: Normocephalic, Atraumatic and Moist Mucous Membranes
Respiratory: Decreased breath sounds at the bases; Negative Wheezes, Rales or Rhonchi
Cardiac: Regular Rhythm and S1/S2
GI: Soft, Nontender and Nondistended
Musculoskeletal: No Clubbing, No Cyanosis and No Edema
Neuro: Awake, Alert and Oriented
Psych: Calm
A/P:
1. Probable right lower lobe pneumonia, concerns for parapneumonic effusion, rule out empyema or loculated effusion
Probable sepsis -leukocytosis/Hypotension -POA
-CT abdomen pelvis showing right lower lobe consolidation on imaging
-Check covid
-Patient to have some dry cough no significant phlegm production.
-Maintain on empiric Rocephin/azithromycin
-Stop midodrine
-No IV fluid
-Obtained chest x-ray PA lateral to evaluate interval pneumonia and effusion on 07/03-->persistent or worse consolidation so we will ask ID to see.
-Will obtain ID consult
-Obtain echocardiogram normal ejection fraction and no significant valvulopathy
-WBC 21--> 16.8-->19.1 today
-Blood cultures no growth
-UA abnormal upon admission
2. ISAAC on presumed CKD
Left nephrectomy with h/o RCC
-Patient creatinine unknown. Admission creatinine of 2.7--> down to 1.6 today
-Will restart gentle IV fluid today on 07/04
-Continue to hold ARB, losartan
-Likely related to volume depletion/hypotension related
-Bladder scan/straight cath protocol ordered
-Avoid nephrotoxic medication
3. Type 2 diabetes mellitus -uncontrolled
-Patient hemoglobin A1c of 12.7
-Managed by primary care physician, in process of seeing endocrinology
-Maintained on Lantus with NovoLog 15 unit AC and sliding scale--> increased to Lantus 20 units twice a day and NovoLog 20 units before meal
-Diabetes [employer] consulted for further help
4. Essential hypertension
-Hold losartan/labetalol due to hypotension/ISAAC
-Resume as clinically appropriate
5. Chronic back pain
Right foot numbness
-Suspected lumbar radiculopathy has diabetic neuropathy is usually symmetric
-CT abdomen pelvis showing did not show any major spinal changes
-Good palpable pulse on lower extremity, arterial Doppler ordered
6. HLD
- maintain on crestor
7. Orthostatic hypotension
-Patient had orthostatic hypotension and had low blood pressure when with standing up
-hold BP Medication, LE compression stockings
-Blood pressure on the high side today so discontinue midodrine but recheck orthostatics twice a day to see if she needs to be back on it.
DVT prophylaxis:
SCD and add heparin SQ
CODE STATUS:
Full code
Total time spent on today's encounter was 52 minutes which included time spent in counseling the patient/family regarding diagnosis and treatment plan as listed above, goals of care, and symptom management. Case was discussed with nursing staff,
specialists, and care coordinators/case management. All labs and imaging personally reviewed by me. Remainder the time spent in detailed review of previous records, lab data, imaging, and other medical provider documentation.
Anticipated Discharge: 24 - 48 hours
Subjective/Interval History
-
Date of Service: July 04, 2024
Patient feels slightly better today. Afebrile.
Objective Data
-
Labs:
Laboratory Results
07/04/24
06:08
WBC 19.1 H
Hgb 12.8
Hct 38.1
Plt Count 230
Sodium 141
Potassium 4.1
Chloride 105
Carbon Dioxide 17 L
BUN 36 H
Creatinine 1.6 H
Glucose 266 H
Calcium 9.6
Vital Signs:
Vital Signs
Temp Pulse Resp BP Pulse Ox
98.9 F 96 18 133/61 96
07/04/24 07:25 07/04/24 07:25 07/04/24 07:25 07/04/24 07:25 07/04/24 08:04
I&O
07/03/24 07/04/24 07/05/24
06:59 06:59 06:59
Intake Total 2189 / 0 890 / 890
Balance 0 / 0 890 / 890
--- NOTE | 2024-07-04 08:50 | PN.CDI ---
CDI
- -
CDI:
Physician Documentation Request
Admit Date: 07/01/24 17:49
Dear Doctor Karla,
Please review the following and provide your response in the progress notes.
Clinical Indicators:
H+P, 07/01
#4. Elevated K - likey from renal failure
#...IV fluids
Laboratory Tests
07/01/24 07/01/24 07/02/24
13:48 23:13 04:32
Potassium 5.6 H 5.0 4.9
07/03/24 07/04/24
06:59 06:08
Potassium 4.8 4.1
Based on the above, please clarify in the progress notes, the appropriate diagnosis, if significant, that supports the above abnormalities and additional evaluation, monitoring and/or treatment rendered:
Hyperkalemia, POA, now resolved
Abnormal lab value, clinically insignificant
Other(please specify)
Use of terms such as suspected, likely, concern for, or probable (associated with a specific diagnosis that is being evaluated, monitored, or treated as if it exists) are acceptable and can be coded in the inpatient setting, when documented at the
time of discharge.
Thank you,
Dang Alba RN BSN CCDS
CDI Specialist
please contact via tiger text
Please use your independent medical judgment in providing your response.
[2024-07-04 09:22] VITALS: BP 100/63; BP 133/61; PULSE 109; PULSE 96
[2024-07-04 10:29] VITALS: BP 132/59; PULSE 86
[2024-07-04 11:58] LABS: Glucose - Point of Care 254 mg/dl (70-99)
[2024-07-04] MEDS: NSS 1000 IV ×2 (13:31→22:59)
[2024-07-04] MEDS: TRANDATE 100 MG PO ×2 (13:34→21:16)
[2024-07-04 15:32] VITALS: BP 116/71
--- NOTE | 2024-07-04 15:50 | PTCARENOTE ---
pt AAO x3, BRASWELL well, OOB in chair/ambulatory robin BR with occ assistance/occ uses walker, pt sl unsteady w/OOB activity but denies dizziness. VSS. On room air- pulse ox 94%, pt with (+) tachypnea/AREVALO; has occ coughing episodes; Tessalon perles
given as ordered prn with good effect. Abd obese, soft, jesenia PO well. Voiding in BR without difficulty. IVF's NSS @ 85 ml/hr infusing via Rt forearm site without sx of infiltration. Resting in bed at present. Will continue to monitor.
[2024-07-04 16:45] LABS: Glucose - Point of Care 232 mg/dl (70-99)
[2024-07-04] MEDS: CRESTOR 40 MG PO (17:50)
[2024-07-04] MEDS: NOVOLOG FLEXPEN-MODERATE RESISTANCE 3 UNITS SC (17:51)
[2024-07-04] MEDS: ZITHROMAX 500 MG PO (19:37)
[2024-07-04] MEDS: TRANDATE PO (19:38)
[2024-07-04 21:08] LABS: Glucose - Point of Care 217 mg/dl (70-99)
[2024-07-04 23:39] VITALS: BP 105/65; BP 111/73; BP 113/69; PULSE 102; PULSE 84; PULSE 86
--- NOTE | 2024-07-05 07:11 | PN.DE.MGMTRT ---
Insulin Management
- -
07/05/2024: Diabetes Management Consult Follow up
69 year old female admitted with Right lower lobe pneumonia. PMH: HTN, Renal cell carcinoma s/p L nephrectomy and T2DM. Pt states was taking Lantus 20 units @ HS and Lispro 15 units AC prior to admission. Has a working meter- OneTouch with enough
supplies at home. States her PCP recommended she starts seeing the Endocrine group next to the hospital. Provided her with name of practice and encouraged her to call as soon as she is feeling better.
A1C 12.7% Cr 1.7, eGFR 32.26, glucose on admission was 488 and has consistently remained elevated >200.
Pt awake, alert, oriented, sitting out of bed. Able to discuss diabetes mgt. Her primary is Dr. Stephen Harman.
07/03 Lantus dose was changed to BID, patient received AM dose 07/03. Premeal glucose 264 to 320, requiring 7 -12 units of corrective insulin.
07/04 4am glucose 249. Cr 1.6, eGFR 34.70. Diet changed today from 1800 to 1600 calorie, BID lantus increased from 20 units to 25 units. AC novolog changed from 20 to 25 units with moderate corrective insulin. Glucose range 232 to 254 requiring 5
additional corrective units.
07/05 Will increase AC novolog to 30 units with moderate corrective, continue lantus 25 units BID.
Will follow and make further insulin adjustments if needed.
I spoke with patients nurse regarding changes.
Diabetes History
- -
Type of Diabetes: 2 requiring insulin
Pre-Admission Diabetes Regimen
07/04/24
06:08
Creatinine 1.6 H
Lab Results
Hemoglobin A1c 12.7 % (4.0-5.6) H 07/02/24 04:32
Insulin Pump Settings
IP Diabetes Regimen
07/04/24 07/04/24 07/04/24
06:08 07:54 11:57
Glucose 266 H
POC Glucose 289 H 254 H
07/04/24 07/04/24
16:43 21:07
Glucose
POC Glucose 232 H 217 H
Meal type: Dinner
Meal type: Lunch
Meal type: Breakfast
Amount consumed: 50%
Amount consumed: 100%
Amount consumed: 100%
Patient Education
[2024-07-05 07:18] LABS: Hematocrit 33.6 % (37.0-47.0); Hemoglobin 11.5 g/dL (12.0-16.0); Mean Corp Hgb Conc. 34.2 g/dL (33.0-37.0); Mean Corpuscular Hgb 27.4 pg (27.0-31.0); Mean Corpuscular Volume 80.2 fL (81.0-99.0); Mean Platelet Volume 9.2 fL (7.4-10.4); Platelet Count 188 10^3/uL (130-400); Red Blood Cell Count 4.19 10^6/uL (4.20-5.40); White Blood Cell Count 17.2 10^3/uL (4.8-10.8)
[2024-07-05 07:55] VITALS: BP 118/69
[2024-07-05 08:02] LABS: Blood Urea Nitrogen 45 mg/dl (7-17); Calcium 9.1 mg/dl (8.4-10.2); Carbon Dioxide 17 mmol/L (22-30); Chloride 105 mmol/L (98-107); Estimated Creatinine Clearance 37 ml/min; Glucose 210 mg/dl (70-99); Potassium 4.1 mmol/L (3.5-5.1); Sodium 138 mmol/L (135-145); eGFR 32.26
[2024-07-05 08:28] LABS: Glucose - Point of Care 242 mg/dl (70-99)
--- NOTE | 2024-07-05 08:35 | W.PN.HOSP.TC ---
Today's Communication/Plan
-
Continue antibiotics. ID eval
Assessment / Plan
Assessment / Plan
Physical exam:
General: Acutely ill
HEENT: Normocephalic, Atraumatic and Moist Mucous Membranes
Respiratory: Decreased breath sounds at the bases; Negative Wheezes, Rales or Rhonchi
Cardiac: Regular Rhythm and S1/S2
GI: Soft, Nontender and Nondistended
Musculoskeletal: No Clubbing, No Cyanosis and No Edema
Neuro: Awake, Alert and Oriented
Psych: Calm
A/P:
1. Right lower lobe pneumonia complicated with parapneumonic effusion
Probable sepsis -leukocytosis/Hypotension -POA
-CT abdomen pelvis showing right lower lobe consolidation on imaging
-Check covid
-Patient to have some dry cough no significant phlegm production.
-Maintain on empiric Rocephin/azithromycin
-Stop midodrine
-No IV fluid
-Obtained chest x-ray PA lateral to evaluate interval pneumonia and effusion on 07/03-->persistent or worse consolidation so we will ask ID to see.
-Will obtain ID consult
-Obtain echocardiogram normal ejection fraction and no significant valvulopathy
-WBC 21--> 16.8-->19.1 today
-Blood cultures no growth
-UA abnormal upon admission
2. ISAAC on presumed CKD
Left nephrectomy with h/o RCC
-Patient creatinine unknown. Admission creatinine of 2.7--> down to 1.7 today
-Obtain ultrasound of the kidneys
-Stop IV fluids since we might be close to her baseline
-Continue to hold ARB, losartan
-Likely related to volume depletion/hypotension related
-Bladder scan/straight cath protocol ordered
-Avoid nephrotoxic medication
3. Type 2 diabetes mellitus -uncontrolled
-Patient hemoglobin A1c of 12.7
-Managed by primary care physician, in process of seeing endocrinology
-Maintained on Lantus with NovoLog 15 unit AC and sliding scale--> increased to Lantus 20 units twice a day and NovoLog 20 units before meal
-Diabetes [employer]ICER consulted for further help
4. Essential hypertension
-Hold losartan/labetalol due to hypotension/ISAAC
-Resume as clinically appropriate
5. Chronic back pain
Right foot numbness
-Suspected lumbar radiculopathy has diabetic neuropathy is usually symmetric
-CT abdomen pelvis showing did not show any major spinal changes
-Good palpable pulse on lower extremity, arterial Doppler ordered
6. HLD
- maintain on crestor
7. Orthostatic hypotension
-Patient had orthostatic hypotension and had low blood pressure when with standing up
-hold BP Medication, LE compression stockings
-Blood pressure on the high side today so discontinue midodrine but recheck orthostatics twice a day to see if she needs to be back on it.
DVT prophylaxis:
SCD and add heparin SQ
CODE STATUS:
Full code
Anticipated Discharge: 24 - 48 hours
Subjective/Interval History
-
Date of Service: July 05, 2024
Patient with mild discomfort in flank area. Cannot expectorate much. Afebrile
Objective Data
-
Labs:
Laboratory Results
07/05/24
07:00
WBC 17.2 H
Hgb 11.5 L
Hct 33.6 L
Plt Count 188
Sodium 138
Potassium 4.1
Chloride 105
Carbon Dioxide 17 L
BUN 45 H
Creatinine 1.7 H
Glucose 210 H
Calcium 9.1
Vital Signs:
Vital Signs
Temp Pulse Resp BP Pulse Ox
98.6 F 70 18 118/69 96
07/05/24 07:55 07/05/24 07:55 07/05/24 07:55 07/05/24 07:55 07/05/24 07:55
I&O
07/04/24 07/05/24 07/06/24
06:59 06:59 06:59
Intake Total 890 / 890 3160 / 3160
Balance 890 / 890 3160 / 3160
[2024-07-05] MEDS: MUCINEX 600 MG PO (09:22)
[2024-07-05] MEDS: TYLENOL 650 MG PO ×2 (09:22→23:05)
[2024-07-05] MEDS: WELLBUTRIN SR (12 hour sustained release) 150 MG PO ×2 (09:22→20:21)
[2024-07-05] MEDS: ASPIR LOW (ENTERIC COATED) 81 MG PO (09:22)
[2024-07-05] MEDS: LANTUS 0.25 UNITS SC ×2 (09:23→20:21)
[2024-07-05] MEDS: THERAGRAN 1 TABLET PO (09:23)
[2024-07-05] MEDS: NOVOLOG FLEXPEN 30 UNITS SC ×3 (09:24→17:09)
[2024-07-05] MEDS: NOVOLOG FLEXPEN-MODERATE RESISTANCE 3 UNITS SC ×2 (09:25→12:57)
[2024-07-05] MEDS: HEPARIN 5000 UNITS SC ×3 (09:26→23:00)
[2024-07-05] MEDS: STERILE WATER FOR INJECTION 10 ML IV (09:27)
[2024-07-05] MEDS: TRANDATE 100 MG PO ×2 (09:27→20:21)
[2024-07-05] MEDS: ROCEPHIN 1000 MG IV (09:27)
[2024-07-05 09:29] VITALS: O2SAT 94
--- NOTE | 2024-07-05 11:12 | CON.ID ---
Consultation
-
Date/Time Consultation Requested: 07/04/2024 0835
Date/Time Consultation Performed: 07/05/2024 1030
Requesting Provider: Dr. Acosta
Performing Provider: Dr. Fuentes
Reason for Consultation: PNA
Chief Complaint / Past History
History of Present Illness
Kelly Herrera is a 69-year-old female being evaluated at the request of Dr. Acosta in regards to pneumonia. History is obtained from chart review, along with patient interview.
The patient reports a significant past medical history of DM type II, along with CKD and hypertension. She notes that she was in her usual state of health until approximately 2 to 3 weeks ago when she developed a cough. The cough was relatively
nonproductive, although occasional yellow sputum was produced. She additionally developed a fever for several days and felt generally weak. She recalls at that time that she question whether she had RSV or COVID (she is fully vaxxed for COVID,
though).
She then recalls that 1 week ago she woke up and she found that she was significantly short of breath, and has now developed some right pleuritic pain. She again felt generally weak and recalls falling at least 3 times. Earlier this week she noted
fevers, although when she took her temperature she was only 98 degrees. Because of shortness of breath she came to the emergency room where chest imaging revealed a right lower lobe infiltrate. She was placed on ceftriaxone and Azithromycin, and
Infectious Diseases has been asked to comment upon further antibiotic recommendations.
She denies any sick contacts. She denies any recent travel. She does have 1 dog as a pet.
Past History
Additional Past Medical History:
HTN
DM type II
CKD
Hx RCC
Additional Past Surgical History:
Left nephrectomy
Allergy History:
No Known Allergies Allergy (Verified 07/01/24 13:18)
Medications Reviewed: Yes
Current Antibiotics:
Ceftriaxone 1 g IV every 24 hours
Azithromycin
Social History
Tobacco: Non-Smoker
Alcohol: None
Drug: None
Personal: Single
Living: Alone
Employment: Retired
Review of Systems
Vital Signs
Temp Pulse Resp BP Pulse Ox
98.6 F 70 18 118/69 96
07/05/24 07:55 07/05/24 09:27 07/05/24 07:55 07/05/24 09:27 07/05/24 07:55
Physical Exam
Physical Exam
Constitutional: No Acute Distress, Comfortable and Non-toxic
Eyes: No Conjunctival Hemorrhage and Sclera Anicteric
Cardiovascular: S1/S2; Negative S3/S4
Pulmonary: Coarse and Other (Mildly labored.); Negative Rhonchi
Gastrointestinal: Soft, Non Tender, Non Distended, Normal Bowel Sounds, No Rebound and No Guarding
Genito-Urinary: Negative CVA Tenderness
Extremities: Edema and Venous Insufficiency; Negative Cyanosis or Erythema
Skin: Warm and Dry; Negative Rash or Jaundice
Neurological: Awake and Alert
Psychological: Calm
Lab / Diagnostic Study Results
07/05/24 07:00
07/05/24 07:00
Abs Immat Gran (auto) 0.4 10^3/uL (0-0.05) H 07/01/24 13:48
Absolute Neuts (auto) 18.6 10^3/uL (1.4-6.5) H 07/01/24 13:48
Absolute Lymphs (auto) 0.8 10^3/uL (1.2-3.4) L 07/01/24 13:48
Absolute Monos (auto) 1.0 10^3/uL (0.1-0.6) H 07/01/24 13:48
Absolute Basos (auto) 0.1 10^3/uL (0-0.2) 07/01/24 13:48
Immature Gran % 1.9 % (0-0.5) H 07/01/24 13:48
Neutrophils % 88.6 % (42.2-75.2) H 07/01/24 13:48
Lymphocytes % 4.0 % (20.5-51.1) L 07/01/24 13:48
Monocytes % 4.9 % (1.7-9.3) 07/01/24 13:48
Eosinophils % 0.3 % (0-6) 07/01/24 13:48
Basophils % 0.3 % (0-2) 07/01/24 13:48
Lactic Acid 1.7 mmol/L (0.7-2.0) 07/01/24 15:51
Ur Squamous Epith Cells 6-10 /LPF (Few) 07/01/24 15:22
Microbiology Results
Micro:
07/01/24 15:51 Blood Culture - Preliminary
Blood/Venous No Growth in 72 hours- Final report to follow
07/01/24 15:51 Blood Culture - Preliminary
Blood/Venous No Growth in 72 hours- Final report to follow
07/01/24 15:22 Urine Culture - Final
Urine
07/02/24 04:32 MRSA Screen - Final
Nose No Methicillin Resistant Staphylococcus aureus isolated.
Imaging:
07/03/2024 CXR (2 view): Evaluation is limited by patient body habitus. Low lung volumes noted. A right basilar opacification/infiltrate is noted, and appears to have progressed from prior imaging on 07/01/2024.
07/01/2024 CT abdomen/pelvis without contrast: A right lower lobe consolidation with surrounding effusion is suspicious for PNA with parapneumonic effusion. No evidence of acute traumatic injury to the abdomen.
Assessment / Plan
Right lower lobe pneumonia (CAP)
Suspected parapneumonic effusion
Leukocytosis
Reported fever
CKD
Hx HTN
Hx RCC
Recommendations:
Continue with empiric ceftriaxone/Azithromycin.
Check Legionella urinary antigen, pneumococcal urinary antigen.
Trend white count and temperature curve.
Follow-up pending cultures (blood culture)
Follow CXR. If effusion persists, may require thoracentesis.
Further recommendations as additional data is returned.
[2024-07-05 12:54] LABS: Glucose - Point of Care 218 mg/dl (70-99)
[2024-07-05 13:00] VITALS: BP 108/66; BP 110/66; BP 115/69; PULSE 79; PULSE 82
[2024-07-05 13:49] VITALS: O2SAT 94
--- NOTE | 2024-07-05 14:51 | VNURNOTE ---
Home Health Liaison met with patient to discuss [facility] nurse/therapy, visits, schedule and homebound status. Patient is agreeable and understands that visits at home will be 2-3 x per week to assess and teach medical management.
[facility] brochure provided with contact information. Patient is aware that [facility] will contact them for start of care in 1-2 days after discharge from .
[facility] referral completed in [facility].
[2024-07-05 15:52] VITALS: BP 108/66; BP 110/66; BP 115/69; PULSE 79; PULSE 82
[2024-07-05 16:37] LABS: Glucose - Point of Care 117 mg/dl (70-99)
[2024-07-05] MEDS: TESSALON PERLES 200 MG PO (16:38)
--- NOTE | 2024-07-05 16:38 | CM ---
PT recommends VN .
Spoke with pt in room . Offered VN she requested [facility] [place] liaison notified.
CELSA Morton will drive her home.
IMM left in room.
PLAN Home with [facility]
[2024-07-05] MEDS: NOVOLOG FLEXPEN-MODERATE RESISTANCE SC (17:04)
[2024-07-05] MEDS: CRESTOR 40 MG PO (17:09)
[2024-07-05] MEDS: MUCINEX PO (20:14)
[2024-07-05 20:20] LABS: Glucose - Point of Care 125 mg/dl (70-99)
[2024-07-05] MEDS: ROBITUSSIN DM 5 ML PO (20:22)
[2024-07-05] MEDS: ZITHROMAX 500 MG PO (20:22)
[2024-07-05 23:59] VITALS: BP 131/68; BP 90/54; PULSE 90
[2024-07-06 07:19] LABS: % Basophils 0.5 % (0-2); % Eosinophils 2.6 % (0-6); % Immature Granulocytes 1.5 % (0-0.5); % Lymphocytes 7.6 % (20.5-51.1); % Monocytes 8.9 % (1.7-9.3); % Neutrophils 78.9 % (42.2-75.2); Absolute Basophils 0.1 10^3/uL (0-0.2); Absolute Eosinophils 0.4 10^3/uL (0-0.7); Absolute Immature Granulocytes 0.2 10^3/uL (0-0.05); Absolute Lymphocytes 1.2 10^3/uL (1.2-3.4); Absolute Monocytes 1.4 10^3/uL (0.1-0.6); Absolute Neutrophils 12.2 10^3/uL (1.4-6.5); Hematocrit 34.3 % (37.0-47.0); Hemoglobin 11.6 g/dL (12.0-16.0); Mean Corp Hgb Conc. 33.8 g/dL (33.0-37.0); Mean Corpuscular Hgb 26.9 pg (27.0-31.0); Mean Corpuscular Volume 79.4 fL (81.0-99.0); Mean Platelet Volume 9.2 fL (7.4-10.4); Nucleated Red Blood Cells % 0 %; Platelet Count 191 10^3/uL (130-400); Red Blood Cell Count 4.32 10^6/uL (4.20-5.40); Red Cell Dist. Width 15.1 % (11.5-14.5); White Blood Cell Count 15.4 10^3/uL (4.8-10.8)
[2024-07-06 07:40] LABS: Glucose - Point of Care 165 mg/dl (70-99)
[2024-07-06 07:51] LABS: Blood Urea Nitrogen 45 mg/dl (7-17); Calcium 9.3 mg/dl (8.4-10.2); Carbon Dioxide 19 mmol/L (22-30); Chloride 103 mmol/L (98-107); Estimated Creatinine Clearance 35 ml/min; Glucose 138 mg/dl (70-99); Potassium 4.1 mmol/L (3.5-5.1); Sodium 139 mmol/L (135-145); eGFR 30.12
[2024-07-06 07:54] VITALS: BP 116/68
--- NOTE | 2024-07-06 07:59 | W.PN.ID1 ---
Addendum entered and electronically signed by Abhinav Fuentes DO 07/06/24 12:36:
I saw and evaluated the patient. I reviewed the resident�s note and agree with findings and plan as documented in the resident�s note.
Patient continues to feel somewhat weak, with ongoing cough. Little sputum production.
White count slowly improving.
Continue with ceftriaxone and Azithromycin for today.
If white count continues to improve, and there is ongoing clinical improvement, may be able to transition to oral cefdinir in the next 24 to 48 hours.
Would continue to follow chest x-ray. Monitor white count and temperature curve.
����������������������������������������������������������
Original Note:
Date of Service
Date of Service: July 06, 2024
Today's Communication
Continue antibiotics
Assessment / Plan
Right lower lobe pneumonia (CAP)
Suspected parapneumonic effusion
Leukocytosis
Reported fever
CKD
Hx HTN
Hx RCC
Recommendations:
Continue with ceftriaxone/Azithromycin.
Legionella urinary antigen, pneumococcal urinary antigen negative on 06/04
Trend white count and temperature curve.
WBC downtrending
Blood cultures with no growth.
CXR on 06/02: likely slight increased/progression of right basilar opacification suspicious for pneumonia.
Follow CXR.
Subjective / Review of Systems
Patient continues to cough constantly and feels as though it is difficult to catch her breath even while sitting down.
Review of Systems: No Fever, No Chills, No Abdominal Pain, No Nausea and No Vomiting
Vital Signs / Physical Exam
Vital Signs
Vital Signs
Temp Pulse Resp BP Pulse Ox
97.9 F 94 18 116/68 96
07/06/24 07:54 07/06/24 07:54 07/06/24 07:54 07/06/24 07:54 07/06/24 07:54
Physical Exam
Constitutional: Obese
Head: Normocephalic
Cardiovascular: Regular Rate and S1/S2
Pulmonary: Clear, Coarse and Other (Mildly labored); Negative Wheezes
Gastrointestinal: Soft, Non Tender and Non Distended
Skin: Warm and Dry
Neurological: Awake, Alert and Oriented
Objective Data
Lab Data
Lab Results
07/06/24 06:36
07/06/24 06:36
Estimated Creat Clear 35 ml/min 07/06/24 06:36
Lactic Acid 1.7 mmol/L (0.7-2.0) 07/01/24 15:51
Total Bilirubin 0.7 mg/dl (0.2-1.3) 07/02/24 04:32
AST 28 U/L (14-36) 07/02/24 04:32
ALT 29 U/L (0-35) 07/02/24 04:32
Alkaline Phosphatase 92 U/L (38-126) 07/02/24 04:32
Most recent labs reviewed.
Micro Results:
07/01/24 15:51 Blood Culture - Preliminary
Blood/Venous No Growth in 4 days- Final report to follow
07/01/24 15:51 Blood Culture - Preliminary
Blood/Venous No Growth in 4 days- Final report to follow
07/05/24 15:01 Legionella Urinary Antigen - Final
Urine Negative for Legionella pneumophila Serogroup 1 antigen.
A negative result does not rule out the possiblity of
Legionella infection due to other serogroups or species of
Legionella. Clinical correlation is recommended.
Streptococcus pneumoniae Antigen (M - Final
Negative for Streptococcus pneumoniae antigen.
A negative result does not exclude infection with
Streptococcus pneumoniae. Clinical correlation is
recommended.
07/01/24 15:22 Urine Culture - Final
Urine
07/02/24 04:32 MRSA Screen - Final
Nose No Methicillin Resistant Staphylococcus aureus isolated.
Imaging:
07/03/2024 CXR (2 view): Evaluation is limited by patient body habitus. Low lung volumes noted. A right basilar opacification/infiltrate is noted, and appears to have progressed from prior imaging on 07/01/2024.
07/01/2024 CT abdomen/pelvis without contrast: A right lower lobe consolidation with surrounding effusion is suspicious for PNA with parapneumonic effusion. No evidence of acute traumatic injury to the abdomen.
--- NOTE | 2024-07-06 08:00 | PN.DE.MGMTRT ---
Insulin Management
- -
07/06/2024: Diabetes Management Consult Follow up
69 year old female admitted with Right lower lobe pneumonia. PMH: HTN, Renal cell carcinoma s/p L nephrectomy and T2DM. Pt states was taking Lantus 20 units @ HS and Lispro 15 units AC prior to admission. Has a working meter- OneTouch with enough
supplies at home. States her PCP recommended she starts seeing the Endocrine group next to the hospital. Provided her with name of practice and encouraged her to call as soon as she is feeling better.
A1C 12.7% Cr 1.7, eGFR 32.26, glucose on admission was 488 and has consistently remained elevated >200.
Pt awake, alert, oriented, sitting out of bed. Able to discuss diabetes mgt. Her primary is Dr. Stephen Harman.
07/03 Lantus dose was changed to BID, patient received AM dose 07/03. Premeal glucose 264 to 320, requiring 7 -12 units of corrective insulin.
07/05 Cr 1.6, eGFR 34.70. Diet 1600 calorie, BID lantus increased from 20 units to 25 units. AC novolog changed from 20 to 25 units with moderate corrective insulin. Glucose range 218 down to 117 pre dinner after ac novolog increased to 30 units.
07/06 Cr 1.8 eGFR 30.12 Will continue AC novolog 30 units change moderate corrective to low, continue lantus 25 units BID.
Will follow and make further insulin adjustments if needed.
I spoke with patients nurse regarding changes.
Diabetes History
- -
Type of Diabetes: 2 requiring insulin
Pre-Admission Diabetes Regimen
07/05/24 07/06/24
07:00 06:36
Creatinine 1.7 H 1.8 H
Lab Results
Hemoglobin A1c 12.7 % (4.0-5.6) H 07/02/24 04:32
Insulin Pump Settings
IP Diabetes Regimen
07/05/24 07/05/24 07/05/24
07:00 08:14 12:53
Glucose 210 H
POC Glucose 242 H 218 H
07/05/24 07/05/24 07/06/24
16:34 20:18 06:36
Glucose 138 H
POC Glucose 117 H 125 H
07/06/24
07:39
Glucose
POC Glucose 165 H
Patient Education
[2024-07-06] MEDS: ROCEPHIN 1000 MG IV (08:05)
[2024-07-06] MEDS: ASPIR LOW (ENTERIC COATED) 81 MG PO (08:05)
[2024-07-06] MEDS: HEPARIN 5000 UNITS SC ×3 (08:05→23:07)
[2024-07-06] MEDS: TRANDATE 100 MG PO ×2 (08:06→20:04)
[2024-07-06] MEDS: WELLBUTRIN SR (12 hour sustained release) 150 MG PO ×2 (08:06→20:04)
[2024-07-06] MEDS: THERAGRAN 1 TABLET PO (08:06)
[2024-07-06] MEDS: FLUSH (NSS) 1 FLUSH IV (08:07)
[2024-07-06] MEDS: STERILE WATER FOR INJECTION 10 ML IV (08:11)
[2024-07-06] MEDS: NOVOLOG FLEXPEN 30 UNITS SC ×2 (08:21→13:06)
[2024-07-06] MEDS: NOVOLOG FLEXPEN-LOW RESISTANCE 1 UNITS SC ×2 (08:22→13:07)
[2024-07-06] MEDS: LANTUS 0.25 UNITS SC (08:22)
[2024-07-06] MEDS: NOVOLOG FLEXPEN-MODERATE RESISTANCE SC (08:52)
--- NOTE | 2024-07-06 09:15 | W.PN.HOSP.TC ---
Today's Communication/Plan
-
Continue antibiotics. ID reeval
Assessment / Plan
Assessment / Plan
Physical exam:
General: Acutely ill
HEENT: Normocephalic, Atraumatic and Moist Mucous Membranes
Respiratory: Decreased breath sounds at the bases; Negative Wheezes, Rales or Rhonchi
Cardiac: Regular Rhythm and S1/S2
GI: Soft, Nontender and Nondistended
Musculoskeletal: No Clubbing, No Cyanosis and No Edema
Neuro: Awake, Alert and Oriented
Psych: Calm
A/P:
1. Right lower lobe pneumonia complicated with parapneumonic effusion
Probable sepsis -leukocytosis/Hypotension -POA
-CT abdomen pelvis showing right lower lobe consolidation on imaging
-Check covid
-Patient to have some dry cough no significant phlegm production.
-Maintain on empiric Rocephin/azithromycin
-Stop midodrine
-No IV fluid
-Obtained chest x-ray PA lateral to evaluate interval pneumonia and effusion on 07/03-->persistent or worse consolidation so asked ID to see.
-Will obtain ID consult
-Obtain echocardiogram normal ejection fraction and no significant valvulopathy
-WBC 21-->15.4 today
-Blood cultures no growth
-UA abnormal upon admission
-discussed with daughter over the phone today, Selene
2. ISAAC on presumed CKD
Left nephrectomy with h/o RCC
-Patient creatinine unknown. Admission creatinine of 2.7--> down to 1.7 today
-Obtain ultrasound of the kidneys
-Stop IV fluids since we might be close to her baseline
-Continue to hold ARB, losartan
-Likely related to volume depletion/hypotension related
-Bladder scan/straight cath protocol ordered
-Avoid nephrotoxic medication
3. Type 2 diabetes mellitus -uncontrolled
-Patient hemoglobin A1c of 12.7
-Managed by primary care physician, in process of seeing endocrinology
-Maintained on Lantus with NovoLog 15 unit AC and sliding scale--> increased to Lantus 20 units twice a day and NovoLog 20 units before meal
-Diabetes PROJECT MANAGER PROCESS DEVELOPMENT consulted for further help
4. Essential hypertension
-Hold losartan/labetalol due to hypotension/ISAAC
-Resume as clinically appropriate
5. Chronic back pain
Right foot numbness
-Suspected lumbar radiculopathy has diabetic neuropathy is usually symmetric
-CT abdomen pelvis showing did not show any major spinal changes
-Good palpable pulse on lower extremity, arterial Doppler ordered
6. HLD
- maintain on crestor
7. Orthostatic hypotension
-Patient had orthostatic hypotension and had low blood pressure when with standing up
-hold BP Medication, LE compression stockings
-Blood pressure on the high side today so discontinue midodrine but recheck orthostatics twice a day to see if she needs to be back on it.
DVT prophylaxis:
SCD and add heparin SQ
CODE STATUS:
Full code
Anticipated Discharge: 24 - 48 hours
Subjective/Interval History
-
Date of Service: July 06, 2024
Patient still having some cough and shortness of breath. Afebrile
Objective Data
-
Labs:
Laboratory Results
07/06/24
06:36
WBC 15.4 H
Hgb 11.6 L
Hct 34.3 L
Plt Count 191
Sodium 139
Potassium 4.1
Chloride 103
Carbon Dioxide 19 L
BUN 45 H
Creatinine 1.8 H
Glucose 138 H
Calcium 9.3
Vital Signs:
Vital Signs
Temp Pulse Resp BP Pulse Ox
97.9 F 94 18 116/68 96
07/06/24 07:54 07/06/24 08:06 07/06/24 07:54 07/06/24 08:06 07/06/24 08:02
I&O
07/05/24 07/06/24 07/07/24
06:59 06:59 06:59
Intake Total 3160 / 3160 240 / 240
Balance 3160 / 3160 240 / 240
[2024-07-06 11:18] VITALS: BP 108/69; BP 87/42; BP 98/56; PULSE 73; PULSE 84; PULSE 94
[2024-07-06 11:34] LABS: Glucose - Point of Care 168 mg/dl (70-99)
[2024-07-06 13:17] VITALS: BP 107/63; PULSE 75; O2SAT 96
[2024-07-06 15:00] VITALS: BP 121/75
--- NOTE | 2024-07-06 16:24 | PTCARENOTE ---
pt AAO x3, BRASWELL well, OOB in chair for most of shift; ambulatory to BR; jesenia well, no c/o weakness/dizziness; pt states she is 'feeling better' today. VSS. On room air- pulse ox 95%, pt with (+) slight AREVALO/tachypnea; occ dry, non-productive cough.
Abd obese, soft, jesenia PO well. Voiding in BR without difficulty. Resting comfortably at present, noc/o. Will continue to monitor.
--- NOTE | 2024-07-06 16:31 | CM ---
PT recommends VN .
Spoke with Selene cartwright she said she will
Spoke with pt in room . Offered VN she requested [facility] liaison notified.
CELSA Phillipsa will drive her home.
PLAN Home with [facility]
[2024-07-06 16:55] LABS: Glucose - Point of Care 81 mg/dl (70-99)
[2024-07-06] MEDS: NOVOLOG FLEXPEN-LOW RESISTANCE SC (17:00)
[2024-07-06] MEDS: CRESTOR 40 MG PO (17:24)
[2024-07-06] MEDS: NOVOLOG FLEXPEN SC ×2 (17:25→17:33)
[2024-07-06] MEDS: NOVOLOG FLEXPEN 25 UNITS SC (17:34)
[2024-07-06 19:56] LABS: Glucose - Point of Care 123 mg/dl (70-99)
[2024-07-06] MEDS: LANTUS 0.22 UNITS SC (20:03)
[2024-07-06] MEDS: ZITHROMAX 500 MG PO (20:05)
[2024-07-06] MEDS: ROBITUSSIN AC 10 ML PO (20:29)
[2024-07-06] MEDS: TYLENOL 650 MG PO (20:30)
[2024-07-06 23:40] VITALS: BP 137/62; BP 97/56; BP 99/60; PULSE 102; PULSE 76
[2024-07-07] MEDS: ROBITUSSIN AC 10 ML PO ×5 (00:33→21:16)
[2024-07-07 07:15] LABS: Glucose - Point of Care 163 mg/dl (70-99)
[2024-07-07 07:25] VITALS: BP 114/57; BP 119/61; PULSE 84; PULSE 99
--- NOTE | 2024-07-07 07:31 | PN.DE.MGMTRT ---
Insulin Management
- -
07/07/2024: Diabetes Management F/U:
69 year old female admitted with Right lower lobe pneumonia. PMH: HTN, Renal cell carcinoma s/p L nephrectomy and T2DM. Pt states was taking Lantus 20 units @ HS and Lispro 15 units AC prior to admission. Has a working meter- [employer] with enough
supplies at home. States her PCP Dr. Stephen Harman recommended she starts seeing [facility] the hospital. Provided her with name of practice and encouraged her to call as soon as she is feeling better. A1C 12.7% Cr 1.7, eGFR 32.26,
glucose on admission was 488 and has consistently remained elevated >200.
Pt awake, alert, oriented, sitting up in chair, eating breakfast. Able to discuss diabetes mgt. Cr 1.8 eGFR 30.12 ,
07/06 Premeal Glucose stable and in range 81 to 168, requiring no additional corrective insulin with meals
Fasting 163 this AM. Will make no changes, continue AC NovoLog 25 units, Lantus 22 units BID and low corrective insulin.
Will follow and make further insulin adjustments if needed.
Pt stable for discharge home from diabetes standpoint, hernandez a meter and enough supplies at home.
Diabetes History
- -
Type of Diabetes: 2 requiring insulin
Pre-Admission Diabetes Regimen
07/06/24
06:36
Creatinine 1.8 H
Lab Results
Hemoglobin A1c 12.7 % (4.0-5.6) H 07/02/24 04:32
Insulin Pump Settings
IP Diabetes Regimen
07/06/24 07/06/24 07/06/24
06:36 07:39 11:33
Glucose 138 H
POC Glucose 165 H 168 H
07/06/24 07/06/24 07/07/24
16:54 19:54 07:14
Glucose
POC Glucose 81 123 H 163 H
Meal type: Dinner
Meal type: Lunch
Meal type: Breakfast
Amount consumed: 100%
Amount consumed: 100%
Amount consumed: 100%
Patient Education
[2024-07-07] MEDS: ROCEPHIN 1000 MG IV (08:05)
[2024-07-07] MEDS: STERILE WATER FOR INJECTION 10 ML IV (08:05)
[2024-07-07] MEDS: LANTUS 0.22 UNITS SC ×2 (08:06→22:56)
[2024-07-07] MEDS: BUMEX 0.5 MG PO (08:06)
[2024-07-07] MEDS: HEPARIN 5000 UNITS SC ×3 (08:07→23:00)
[2024-07-07] MEDS: THERAGRAN 1 TABLET PO (08:07)
[2024-07-07] MEDS: WELLBUTRIN SR (12 hour sustained release) 150 MG PO ×2 (08:07→21:17)
[2024-07-07] MEDS: NOVOLOG FLEXPEN-LOW RESISTANCE 1 UNITS SC (08:08)
[2024-07-07] MEDS: ASPIR LOW (ENTERIC COATED) 81 MG PO (08:08)
[2024-07-07] MEDS: NOVOLOG FLEXPEN 25 UNITS SC ×3 (08:08→17:10)
[2024-07-07] MEDS: TRANDATE 100 MG PO ×2 (08:10→21:17)
[2024-07-07 09:34] LABS: % Basophils 0.6 % (0-2); % Eosinophils 2.9 % (0-6); % Lymphocytes 9.6 % (20.5-51.1); % Monocytes 6.8 % (1.7-9.3); % Neutrophils 78.1 % (42.2-75.2); Absolute Basophils 0.1 10^3/uL (0-0.2); Absolute Eosinophils 0.4 10^3/uL (0-0.7); Absolute Immature Granulocytes 0.3 10^3/uL (0-0.05); Absolute Lymphocytes 1.2 10^3/uL (1.2-3.4); Absolute Monocytes 0.9 10^3/uL (0.1-0.6); Absolute Neutrophils 9.8 10^3/uL (1.4-6.5); Hematocrit 33.6 % (37.0-47.0); Hemoglobin 11.1 g/dL (12.0-16.0); Mean Corpuscular Hgb 27.3 pg (27.0-31.0); Mean Corpuscular Volume 82.8 fL (81.0-99.0); Mean Platelet Volume 9.7 fL (7.4-10.4); Nucleated Red Blood Cells % 0 %; Platelet Count 194 10^3/uL (130-400); Red Blood Cell Count 4.06 10^6/uL (4.20-5.40); Red Cell Dist. Width 15.1 % (11.5-14.5); White Blood Cell Count 12.6 10^3/uL (4.8-10.8)
--- NOTE | 2024-07-07 09:37 | W.PN.HOSP.TC ---
Today's Communication/Plan
-
Continue antibiotics.
Assessment / Plan
Assessment / Plan
Physical exam:
General: Acutely ill
HEENT: Normocephalic, Atraumatic and Moist Mucous Membranes
Respiratory: Decreased breath sounds at the bases; Negative Wheezes, Rales or Rhonchi
Cardiac: Regular Rhythm and S1/S2
GI: Soft, Nontender and Nondistended
Musculoskeletal: No Clubbing, No Cyanosis and No Edema
Neuro: Awake, Alert and Oriented
Psych: Calm
A/P:
1. Right lower lobe pneumonia complicated with parapneumonic effusion
Probable sepsis -leukocytosis/Hypotension -POA
-Maintain on empiric Rocephin/azithromycin
-Obtained chest x-ray PA lateral to evaluate interval pneumonia and effusion on 07/03-->persistent or worse consolidation so asked ID to see.
-Obtained echocardiogram normal ejection fraction and no significant valvulopathy
-WBC 21-->12.6 today
-Legionella and strep negative
-Blood cultures no growth
-discussed with daughter over the phone prior, Selene
-Added Robitussin with codeine, Acapella, and DuoNeb as needed.
-Will obtain a follow-up chest x-ray today
2. ISAAC on presumed CKD
Left nephrectomy with h/o RCC
-Patient creatinine unknown. Admission creatinine of 2.7--> down to 1.8 today. Upon discussion with daughter her creatinine was as high as 4 recently so this is improved from her baseline.
-Reviewed ultrasound of the kidneys
-Off IV fluids
-Continue to hold ARB, losartan but can resume upon discharge for nephro protective effect
-Likely related to volume depletion/hypotension related
-Bladder scan/straight cath protocol ordered
-Avoid nephrotoxic medication
3. Type 2 diabetes mellitus -uncontrolled
-Patient hemoglobin A1c of 12.7
-Managed by primary care physician, in process of seeing endocrinology-will refer as outpatient
-Maintained on Lantus with NovoLog 15 unit AC and sliding scale--> increased to Lantus 22 units twice a day and NovoLog 25 units before meal
-Diabetes STAFF ELECTRICAL ENGINEER consulted for further help and appreciated input
4. Essential hypertension
-Hold losartan due to hypotension/ISAAC but can resume upon discharge
5. Chronic back pain
Right foot numbness
-Suspected lumbar radiculopathy has diabetic neuropathy is usually symmetric
-CT abdomen pelvis showing did not show any major spinal changes
-Good palpable pulse on lower extremity, arterial Doppler ordered
6. HLD
- maintain on crestor
7. Orthostatic hypotension
-Patient had orthostatic hypotension and had low blood pressure when with standing up
-hold BP Medication, LE compression stockings
-Blood pressure on the high side today so discontinue midodrine but recheck orthostatics twice a day to see if she needs to be back on it.
DVT prophylaxis:
SCD and add heparin SQ
CODE STATUS:
Full code
Anticipated Discharge: Within 24 hours
Subjective/Interval History
-
Date of Service: July 07, 2024
Patient feels better overall although still has some discomfort on the right flank area. Some dry cough. Afebrile
Objective Data
-
Labs:
Laboratory Results
07/07/24
09:01
WBC 12.6 H
Hgb 11.1 L
Hct 33.6 L
Plt Count 194
Sodium Pending
Potassium Pending
Chloride Pending
Carbon Dioxide Pending
BUN Pending
Creatinine Pending
Glucose Pending
Calcium Pending
Vital Signs:
Vital Signs
Temp Pulse Resp BP Pulse Ox
97.9 F 99 20 119/61 97
07/07/24 07:25 07/07/24 07:25 07/07/24 07:25 07/07/24 07:25 07/07/24 07:25
I&O
07/06/24 07/07/24 07/08/24
06:59 06:59 06:59
Intake Total 240 / 240 1440 / 1440
Balance 240 / 240 1440 / 1440
[2024-07-07 09:58] LABS: Blood Urea Nitrogen 46 mg/dl (7-17); Calcium 9.3 mg/dl (8.4-10.2); Carbon Dioxide 20 mmol/L (22-30); Chloride 103 mmol/L (98-107); Estimated Creatinine Clearance 35 ml/min; Glucose 225 mg/dl (70-99); Potassium 4.1 mmol/L (3.5-5.1); Sodium 139 mmol/L (135-145); eGFR 30.12
[2024-07-07 11:36] LABS: Glucose - Point of Care 235 mg/dl (70-99)
[2024-07-07] MEDS: NOVOLOG FLEXPEN-LOW RESISTANCE 2 UNITS SC (12:33)
[2024-07-07 13:40] VITALS: BP 122/67; BP 128/64; PULSE 54; O2SAT 95
--- NOTE | 2024-07-07 14:26 | W.PN.ID1 ---
Date of Service
Date of Service: July 07, 2024
Today's Communication
Continue antibiotics. See below�
Assessment / Plan
Right lower lobe pneumonia (CAP)
Suspected parapneumonic effusion
Leukocytosis
Reported fever
CKD
Hx HTN
Hx RCC
Recommendations:
Continue with ceftriaxone/Azithromycin for today.
At discharge, can transition ceftriaxone to cefdinir 300 mg p.o. twice daily, to continue through 07/13
Further azithromycin can be discontinued at this time.
Follow-up CXR in 4 to 6 weeks.
����������������������������������������������������������
Chief Complaint
-: Pneumonia
Subjective / Review of Systems
Patient seen and examined. Reports breathing is somewhat more comfortable today. Still with cough, but somewhat improved.
Vital Signs / Physical Exam
Vital Signs
Vital Signs
Temp Pulse Resp BP Pulse Ox
97.9 F 99 20 119/61 97
07/07/24 07:25 07/07/24 07:25 07/07/24 07:25 07/07/24 07:25 07/07/24 08:10
Physical Exam
Constitutional: No Acute Distress, Comfortable, Non-toxic and Obese
Head: Normocephalic
Eyes: Sclera Anicteric
Cardiovascular: Regular Rate and S1/S2
Pulmonary: Clear, Coarse and Non Labored; Negative Wheezes
Gastrointestinal: Soft, Non Tender and Non Distended
Skin: Warm and Dry
Neurological: Awake, Alert and Oriented
Objective Data
Lab Data
Lab Results
07/07/24 09:01
07/07/24 09:01
Estimated Creat Clear 35 ml/min 07/07/24 09:01
Lactic Acid 1.7 mmol/L (0.7-2.0) 07/01/24 15:51
Total Bilirubin 0.7 mg/dl (0.2-1.3) 07/02/24 04:32
AST 28 U/L (14-36) 07/02/24 04:32
ALT 29 U/L (0-35) 07/02/24 04:32
Alkaline Phosphatase 92 U/L (38-126) 07/02/24 04:32
Most recent labs reviewed.
Micro Results:
07/01/24 15:51 Blood Culture - Final
Blood/Venous No Growth - Final Report
07/01/24 15:51 Blood Culture - Final
Blood/Venous No Growth - Final Report
07/05/24 15:01 Legionella Urinary Antigen - Final
Urine Negative for Legionella pneumophila Serogroup 1 antigen.
A negative result does not rule out the possiblity of
Legionella infection due to other serogroups or species of
Legionella. Clinical correlation is recommended.
Streptococcus pneumoniae Antigen (M - Final
Negative for Streptococcus pneumoniae antigen.
A negative result does not exclude infection with
Streptococcus pneumoniae. Clinical correlation is
recommended.
07/01/24 15:22 Urine Culture - Final
Urine
07/02/24 04:32 MRSA Screen - Final
Nose No Methicillin Resistant Staphylococcus aureus isolated.
Imaging:
07/03/2024 CXR (2 view): Evaluation is limited by patient body habitus. Low lung volumes noted. A right basilar opacification/infiltrate is noted, and appears to have progressed from prior imaging on 07/01/2024.
07/01/2024 CT abdomen/pelvis without contrast: A right lower lobe consolidation with surrounding effusion is suspicious for PNA with parapneumonic effusion. No evidence of acute traumatic injury to the abdomen.
[2024-07-07 15:01] VITALS: BP 128/68
[2024-07-07] MEDS: TYLENOL 650 MG PO (15:13)
[2024-07-07 16:31] LABS: Glucose - Point of Care 100 mg/dl (70-99)
[2024-07-07] MEDS: NOVOLOG FLEXPEN-LOW RESISTANCE SC (16:33)
--- NOTE | 2024-07-07 16:33 | CM ---
PT recommends VN .
Selene cartwright she said she will drive her home at id.
[facility] set up by [facility] rodriguez .
IMM reviewed signed on chart
PLAN Home with [facility]
[2024-07-07] MEDS: CRESTOR 40 MG PO (17:11)
[2024-07-07 20:46] VITALS: BP 110/65; BP 113/90; BP 117/68; PULSE 100; PULSE 66; PULSE 83
[2024-07-07 21:30] LABS: Glucose - Point of Care 84 mg/dl (70-99)
[2024-07-07 22:43] LABS: Glucose - Point of Care 150 mg/dl (70-99)
[2024-07-07 23:50] VITALS: BP 103/61
[2024-07-08] MEDS: TYLENOL 650 MG PO (00:59)
[2024-07-08 03:17] LABS: Glucose - Point of Care 137 mg/dl (70-99)
--- NOTE | 2024-07-08 05:51 | PTCARENOTE ---
Addendum entered by Niko Morton RN 07/08/24 05:51:
Pt BSL was rechecked this morning at 3.15am BSL-137.Pt asymptomatic,resting comfortably.Plan of care continued.Call mckinlye in reach.
Original Note:
Pt aaox3 able to make her needs known. Pt BSL-84 at night,pt asymptomatic.AIRLINE RESERVATIONIST clinical education coordinator made aware of it & pt has lantus 22 units ordered.Pt was provided with juice & crackers,pt repeat BSL level was checked 150 noted.AIRLINE RESERVATIONIST ok to give pt insulin 22 units
at this time.Plan of care continued.
[2024-07-08 06:29] LABS: % Basophils 0.6 % (0-2); % Eosinophils 2.4 % (0-6); % Immature Granulocytes 2.6 % (0-0.5); % Lymphocytes 13.8 % (20.5-51.1); % Monocytes 9.2 % (1.7-9.3); % Neutrophils 71.4 % (42.2-75.2); Absolute Basophils 0.1 10^3/uL (0-0.2); Absolute Eosinophils 0.3 10^3/uL (0-0.7); Absolute Immature Granulocytes 0.4 10^3/uL (0-0.05); Absolute Monocytes 1.3 10^3/uL (0.1-0.6); Absolute Neutrophils 10.3 10^3/uL (1.4-6.5); Hematocrit 33.4 % (37.0-47.0); Mean Corp Hgb Conc. 32.9 g/dL (33.0-37.0); Mean Corpuscular Hgb 27.4 pg (27.0-31.0); Mean Corpuscular Volume 83.1 fL (81.0-99.0); Mean Platelet Volume 9.6 fL (7.4-10.4); Nucleated Red Blood Cells % 0 %; Platelet Count 204 10^3/uL (130-400); Red Blood Cell Count 4.02 10^6/uL (4.20-5.40); Red Cell Dist. Width 15.1 % (11.5-14.5); White Blood Cell Count 14.4 10^3/uL (4.8-10.8)
[2024-07-08 06:54] LABS: Blood Urea Nitrogen 52 mg/dl (7-17); Calcium 9.5 mg/dl (8.4-10.2); Carbon Dioxide 21 mmol/L (22-30); Chloride 103 mmol/L (98-107); Estimated Creatinine Clearance 34 ml/min; Glucose 140 mg/dl (70-99); Potassium 4.2 mmol/L (3.5-5.1); Sodium 138 mmol/L (135-145); eGFR 28.23
[2024-07-08 07:55] VITALS: BP 114/77
[2024-07-08 08:00] VITALS: BP 111/69; BP 115/71; BP 86/51; PULSE 106; PULSE 79; PULSE 93
[2024-07-08 08:01] LABS: Glucose - Point of Care 182 mg/dl (70-99)
[2024-07-08] MEDS: NOVOLOG FLEXPEN 25 UNITS SC ×3 (08:03→17:41)
[2024-07-08] MEDS: NOVOLOG FLEXPEN-LOW RESISTANCE 1 UNITS SC ×3 (08:03→17:41)
[2024-07-08] MEDS: ASPIR LOW (ENTERIC COATED) 81 MG PO (08:04)
[2024-07-08] MEDS: BUMEX 0.5 MG PO (08:04)
[2024-07-08] MEDS: WELLBUTRIN SR (12 hour sustained release) 150 MG PO ×2 (08:04→20:09)
[2024-07-08] MEDS: LANTUS 0.22 UNITS SC ×2 (08:05→22:01)
[2024-07-08] MEDS: HEPARIN 5000 UNITS SC ×3 (08:05→22:59)
[2024-07-08] MEDS: THERAGRAN 1 TABLET PO (08:06)
[2024-07-08] MEDS: TRANDATE 100 MG PO ×2 (08:06→20:09)
[2024-07-08] MEDS: STERILE WATER FOR INJECTION 10 ML IV (08:06)
[2024-07-08] MEDS: FLUSH (NSS) 1 FLUSH IV (08:06)
[2024-07-08] MEDS: ROCEPHIN 1000 MG IV (08:06)
--- NOTE | 2024-07-08 10:05 | W.PN.HOSP.TC ---
Today's Communication/Plan
-
IV antibiotics. CT scan of the chest. Thoracentesis.
Assessment / Plan
Assessment / Plan
Physical exam:
General: Acutely ill
HEENT: Normocephalic, Atraumatic and Moist Mucous Membranes
Respiratory: Decreased breath sounds at the bases; Negative Wheezes, Rales or Rhonchi
Cardiac: Regular Rhythm and S1/S2
GI: Soft, Nontender and Nondistended
Musculoskeletal: No Clubbing, No Cyanosis and No Edema
Neuro: Awake, Alert and Oriented
Psych: Calm
A/P:
1. Right lower lobe pneumonia complicated with parapneumonic effusion, rule out empyema
Probable sepsis -leukocytosis/Hypotension -POA
-Maintain on empiric Rocephin/azithromycin
-Obtained chest x-ray PA lateral to evaluate interval pneumonia and effusion on 07/03-->persistent or worse consolidation so asked ID to see.
-Obtained echocardiogram normal ejection fraction and no significant valvulopathy
-WBC 21-->12.6 today
-Legionella and strep negative
-Blood cultures no growth
-discussed with daughter over the phone prior, Selene
-Added Robitussin with codeine, Acapella, and DuoNeb as needed.
-Will obtain a follow-up chest x-ray yesterday and same images
-Today obtain a CT scan of the chest for further delineation of right pneumonia and will try to obtain right thoracentesis--> discussed with interventional radiologist today on 07/08 for thoracentesis, especially concerns for either purely
parapneumonic effusion but rule out empyema. Her clinical picture is mixed but her leukocytosis started to go back up again.
2. ISAAC on presumed CKD
Left nephrectomy with h/o RCC
-Patient creatinine unknown. Admission creatinine of 2.7--> down to 1.9 today. Upon discussion with daughter her creatinine was as high as 4 recently so this is improved from her baseline.
-Reviewed ultrasound of the kidneys
-Off IV fluids
-Continue to hold ARB, losartan but can resume upon discharge for nephro protective effect
-Likely related to volume depletion/hypotension related
-Bladder scan/straight cath protocol ordered
-Avoid nephrotoxic medication
3. Type 2 diabetes mellitus -uncontrolled
-Patient hemoglobin A1c of 12.7
-Managed by primary care physician, in process of seeing endocrinology-will refer as outpatient
-Maintained on Lantus with NovoLog 15 unit AC and sliding scale--> increased to Lantus 22 units twice a day and NovoLog 25 units before meal
-Diabetes BUSINESS SERVICES SALES AGENT consulted for further help and appreciated input
4. Essential hypertension
-Hold losartan due to hypotension/ISAAC but can resume upon discharge
5. Chronic back pain
Right foot numbness
-Suspected lumbar radiculopathy has diabetic neuropathy is usually symmetric
-CT abdomen pelvis showing did not show any major spinal changes
-Good palpable pulse on lower extremity, arterial Doppler ordered
6. HLD
- maintain on crestor
7. Orthostatic hypotension
-Patient had orthostatic hypotension and had low blood pressure when with standing up
-hold BP Medication, LE compression stockings
-Blood pressure on the high side today so discontinue midodrine but recheck orthostatics twice a day to see if she needs to be back on it.
DVT prophylaxis:
SCD and add heparin SQ
CODE STATUS:
Full code
Total time spent on today's encounter was 52 minutes which included time spent in counseling the patient/family regarding diagnosis and treatment plan as listed above, goals of care, and symptom management. Case was discussed with nursing staff,
specialists, and care coordinators/case management. All labs and imaging personally reviewed by me. Remainder the time spent in detailed review of previous records, lab data, imaging, and other medical provider documentation.
Anticipated Discharge: 24 - 48 hours
Subjective/Interval History
-
Date of Service: July 08, 2024
Patient still feel relatively better but still is having some discomfort on her right flank still having some dry cough and shortness of breath. Afebrile
Objective Data
-
Labs:
Laboratory Results
07/08/24
05:36
WBC 14.4 H
Hgb 11.0 L
Hct 33.4 L
Plt Count 204
Sodium 138
Potassium 4.2
Chloride 103
Carbon Dioxide 21 L
BUN 52 H
Creatinine 1.9 H
Glucose 140 H
Calcium 9.5
Vital Signs:
Vital Signs
Temp Pulse Resp BP Pulse Ox
98.5 F 98 22 114/77 96
07/08/24 07:55 07/08/24 08:06 07/08/24 07:55 07/08/24 08:06 07/08/24 07:55
I&O
07/07/24 07/08/24 07/09/24
06:59 06:59 06:59
Intake Total 1440 / 1440 1020 / 1020
Balance 1440 / 1440 1020 / 1020
[2024-07-08 12:02] LABS: Glucose - Point of Care 171 mg/dl (70-99)
[2024-07-08] MEDS: ROBITUSSIN AC 10 ML PO ×2 (15:12→22:08)
[2024-07-08 15:56] VITALS: BP 110/65
--- NOTE | 2024-07-08 16:14 | PTCARENOTE ---
Pt AAO x3, BRASWELL well, OOB in chair for most of shift; ambulatory in ami/to BR and britt, no c/o weakness/dizziness. VSS. On room air- pulseox 97%, pt with (+) slight AREVALO but denies SOB; states she is 'feeling pretty good today'. Pt has occ loose
cough- small amts lt devine mucus- sputum C&S sent. Abd obeses, soft,t ol Po well. Voids in BR without difficulty. Resting in chair at present, no c/o. Will continue to monitor.
[2024-07-08 17:07] LABS: Glucose - Point of Care 164 mg/dl (70-99)
[2024-07-08] MEDS: CRESTOR 40 MG PO (17:42)
[2024-07-08 20:02] VITALS: BP 109/62; BP 111/63; BP 116/59; PULSE 80; PULSE 85; PULSE 94
[2024-07-08 21:33] LABS: Glucose - Point of Care 122 mg/dl (70-99)
[2024-07-08 23:22] VITALS: BP 102/64
[2024-07-09] VITALS (7 sets, daily range): BP systolic 60–123; BP diastolic 57–76; PULSE 75–90
[2024-07-09 06:12] LABS: % Basophils 0.7 % (0-2); % Eosinophils 2.3 % (0-6); % Immature Granulocytes 3.9 % (0-0.5); % Lymphocytes 12.6 % (20.5-51.1); % Monocytes 8.9 % (1.7-9.3); % Neutrophils 71.6 % (42.2-75.2); Absolute Basophils 0.1 10^3/uL (0-0.2); Absolute Eosinophils 0.4 10^3/uL (0-0.7); Absolute Immature Granulocytes 0.6 10^3/uL (0-0.05); Absolute Monocytes 1.4 10^3/uL (0.1-0.6); Absolute Neutrophils 11.4 10^3/uL (1.4-6.5); Hematocrit 34.3 % (37.0-47.0); Hemoglobin 11.2 g/dL (12.0-16.0); Mean Corp Hgb Conc. 32.7 g/dL (33.0-37.0); Mean Corpuscular Hgb 26.9 pg (27.0-31.0); Mean Corpuscular Volume 82.5 fL (81.0-99.0); Mean Platelet Volume 9.6 fL (7.4-10.4); Nucleated Red Blood Cells % 0.1 %; Platelet Count 220 10^3/uL (130-400); Red Blood Cell Count 4.16 10^6/uL (4.20-5.40); White Blood Cell Count 15.9 10^3/uL (4.8-10.8)
[2024-07-09 06:35] LABS: Blood Urea Nitrogen 53 mg/dl (7-17); Calcium 9.3 mg/dl (8.4-10.2); Carbon Dioxide 20 mmol/L (22-30); Chloride 101 mmol/L (98-107); Estimated Creatinine Clearance 34 ml/min; Glucose 178 mg/dl (70-99); Potassium 4.5 mmol/L (3.5-5.1); Sodium 138 mmol/L (135-145); eGFR 28.23
[2024-07-09 07:34] LABS: Glucose - Point of Care 226 mg/dl (70-99)
--- NOTE | 2024-07-09 07:52 | W.PN.HOSP.TC ---
Addendum entered and electronically signed by Rajendra Acosta MD 07/09/24 13:35:
updated daughter
Addendum entered and electronically signed by Rajendra Acosta MD 07/09/24 12:04:
IR told me to just get 10 cc and pleural effusions appears loculated therefore recommended chest tube. Will add IV vancomycin per pharmacy protocol. Will also prepare for chest tube in a.m.
Original Note:
Today's Communication/Plan
-
Change IV antibiotics. Plan for thoracentesis today.
Assessment / Plan
Assessment / Plan
Physical exam:
General: Acutely ill
HEENT: Normocephalic, Atraumatic and Moist Mucous Membranes
Respiratory: Decreased breath sounds at the bases; Negative Wheezes, Rales or Rhonchi
Cardiac: Regular Rhythm and S1/S2
GI: Soft, Nontender and Nondistended
Musculoskeletal: No Clubbing, No Cyanosis and No Edema
Neuro: Awake, Alert and Oriented
Psych: Calm
A/P:
1. Right lower lobe pneumonia complicated with parapneumonic effusion, rule out empyema
Probable sepsis -leukocytosis/Hypotension -POA
-Finish course of azithromycin. Change IV ceftriaxone to IV cefepime for broader coverage of gram-negative pneumonia today on 07/09.
-Obtained chest x-ray PA lateral to evaluate interval pneumonia and effusion on 07/03-->persistent or worse consolidation so asked ID to see.
-Obtained echocardiogram normal ejection fraction and no significant valvulopathy
-WBC 21-->12.6---> 15.9 today
-Legionella and strep negative
-Blood cultures no growth
-Sputum culture pending
-discussed with daughter over the phone prior, Selene
-Added Robitussin with codeine, Acapella, and DuoNeb as needed.
-Obtained a CT scan of the chest on 07/08 and persistent right lower lobe pneumonia with pleural effusion--> discussed with interventional radiologist on 07/08 to see if she would be amenable for thoracentesis, especially concerns for either purely
parapneumonic effusion but rule out empyema. Her clinical picture is mixed but her leukocytosis started to go back up again. Awaiting for IR to evaluate for thoracentesis--> IR planning to do thoracentesis likely today on 07/09.
2. ISAAC on presumed CKD
Left nephrectomy with h/o RCC
-Patient creatinine unknown. Admission creatinine of 2.7--> down to 1.9 today. Upon discussion with daughter her creatinine was as high as 4 recently so this is improved from her baseline.
-Reviewed ultrasound of the kidneys
-Off IV fluids and back on her low-dose diuretics
-Continue to hold ARB, losartan but can resume upon discharge for nephro protective effect
-Likely related to volume depletion/hypotension related
-Bladder scan/straight cath protocol ordered
-Avoid nephrotoxic medication
3. Type 2 diabetes mellitus -uncontrolled
-Patient hemoglobin A1c of 12.7
-Managed by primary care physician, in process of seeing endocrinology-will refer as outpatient
-Maintained on Lantus with NovoLog 15 unit AC and sliding scale--> increased to Lantus 22 units twice a day and NovoLog 25 units before meal
-Diabetes ENTRY CLERK consulted for further help and appreciated input
4. Essential hypertension
-Hold losartan due to hypotension/ISAAC but can resume upon discharge
5. Chronic back pain
Right foot numbness
-Suspected lumbar radiculopathy has diabetic neuropathy is usually symmetric
-CT abdomen pelvis showing did not show any major spinal changes
-Good palpable pulse on lower extremity, arterial Doppler ordered
6. HLD
- maintain on crestor
7. Orthostatic hypotension
-Patient had orthostatic hypotension and had low blood pressure when with standing up
-hold BP Medication, LE compression stockings
-Blood pressure on the high side today so discontinue midodrine but recheck orthostatics twice a day to see if she needs to be back on it.
DVT prophylaxis:
SCD and add heparin SQ
CODE STATUS:
Full code
Total time spent on today's encounter was 52 minutes which included time spent in counseling the patient/family regarding diagnosis and treatment plan as listed above, goals of care, and symptom management. Case was discussed with nursing staff,
specialists, and care coordinators/case management. All labs and imaging personally reviewed by me. Remainder the time spent in detailed review of previous records, lab data, imaging, and other medical provider documentation.
Anticipated Discharge: 24 - 48 hours
Subjective/Interval History
-
Date of Service: July 09, 2024
Patient still having some dry cough and right chest discomfort. Afebrile. Pulse ox normal
Objective Data
-
Labs:
Laboratory Results
07/09/24
05:45
WBC 15.9 H
Hgb 11.2 L
Hct 34.3 L
Plt Count 220
Sodium 138
Potassium 4.5
Chloride 101
Carbon Dioxide 20 L
BUN 53 H
Creatinine 1.9 H
Glucose 178 H
Calcium 9.3
Vital Signs:
Vital Signs
Temp Pulse Resp BP Pulse Ox
98.1 F 83 28 102/64 95
07/08/24 23:22 07/08/24 23:22 07/08/24 23:22 07/08/24 23:22 07/08/24 23:22
I&O
07/08/24 07/09/24 07/10/24
06:59 06:59 06:59
Intake Total 1020 / 1020 2159 / 2159
Balance 1020 / 1020 2159 / 2159
[2024-07-09] MEDS: NOVOLOG FLEXPEN 25 UNITS SC ×3 (08:13→16:43)
[2024-07-09] MEDS: NOVOLOG FLEXPEN-LOW RESISTANCE 2 UNITS SC (08:14)
[2024-07-09] MEDS: BUMEX 0.5 MG PO (08:16)
[2024-07-09] MEDS: TRANDATE 100 MG PO ×2 (08:17→21:23)
[2024-07-09] MEDS: WELLBUTRIN SR (12 hour sustained release) 150 MG PO ×2 (08:18→21:24)
[2024-07-09] MEDS: HEPARIN 5000 UNITS SC ×3 (08:18→23:20)
[2024-07-09] MEDS: THERAGRAN 1 TABLET PO (08:18)
[2024-07-09] MEDS: ASPIR LOW (ENTERIC COATED) 81 MG PO (08:18)
[2024-07-09] MEDS: LANTUS 0.22 UNITS SC ×2 (08:19→22:25)
[2024-07-09] MEDS: STERILE WATER FOR INJECTION 10 ML IV ×3 (08:59→23:22)
[2024-07-09] MEDS: MAXIPIME 1000 MG IV ×3 (08:59→23:21)
--- NOTE | 2024-07-09 10:57 | PTCARENOTE ---
Addendum entered by Sol Solano RN 07/09/24 13:41:
patient returned from IR @12:10 with bandaid c/d/i on right upper back.
Original Note:
Transport arrived for patient to be delivered to [facility].
[2024-07-09 12:01] LABS: Body Fluid pH < 6.80
[2024-07-09 12:07] LABS: Body Fluid Mononuclear 15.6 %; Body Fluid Polymorphonuclear 84.4 %; Body Fluid WBC 28980 /CUMM
[2024-07-09 12:10] LABS: Body Fluid Second Tech AP
[2024-07-09 12:25] LABS: Glucose - Point of Care 131 mg/dl (70-99)
--- NOTE | 2024-07-09 12:30 | PHA.VAN.IN ---
Assessment
- Assessment
Renal Function: Unknown baseline
Renal Function may be Overestimated due to: Obesity. BMI = 43.5
Maximum Temperature: 99
Minimum Temperature: 97.6
Concomitant Antimicrobials: Cefepime
Plan
- Plan
Initial / Loading Dose: Vanc 2000mg--administration pending
Maintenance Regimen: Dose by level
Monitoring: Random level 07/10
Pharmacokinetics Vancomycin I
- -
Patient Age: 69
Patient Sex: Female
Vancomycin Day #: 1
Indication: Pulmonary/Respiratory
Requesting Provider: Acosta
Height / Weight:
Height 5 ft 3 in
Actual Weight 111.329 kg
IBW in k.4
Adjusted BW in k
Pertinent Past Medical History: ISAAC on CKD. Unknown baseline. BMI = 43.5
- Vital Signs / Lab Results
Temp Pulse Resp BP Pulse Ox
97.6 F 80 16 107/68 96
07/09/24 11:22 07/09/24 12:10 07/09/24 12:10 07/09/24 12:10 07/09/24 11:22
Lab Results - Hematology
07/07/24 07/08/24 07/09/24
09:01 05:36 05:45
WBC 12.6 H 14.4 H 15.9 H
Lab Results - Chemistry
07/07/24 07/08/24 07/09/24
09:01 05:36 05:45
BUN 46 H 52 H 53 H
Creatinine 1.8 H 1.9 H 1.9 H
Estimated Creat Clear 35 34 34
07/09/24
10:46
Lactic Acid Cancelled
Microbiology Results
07/08/24 15:20 Respiratory Culture - Final
Sputum Gram Stain - Final
[2024-07-09] MEDS: NOVOLOG FLEXPEN-LOW RESISTANCE SC ×2 (12:33→16:43)
[2024-07-09] MEDS: VANCOCIN 540 MG IV (12:50)
[2024-07-09 13:49] LABS: Body Fluid Glucose < 30 mg/dl; Body Fluid LDH 5951 U/L; Body Fluid Protein 5.3 g/dl
[2024-07-09] MEDS: ROBITUSSIN AC 10 ML PO (15:51)
[2024-07-09 16:22] LABS: Glucose - Point of Care 121 mg/dl (70-99)
[2024-07-09] MEDS: CRESTOR 40 MG PO (16:42)
[2024-07-09] MEDS: ProAmatine 2.5 MG PO (17:35)
[2024-07-09 21:31] LABS: Glucose - Point of Care 106 mg/dl (70-99)
[2024-07-10] VITALS (13 sets, daily range): BP systolic 74–129; BP diastolic 60–87; PULSE 66–90; O2SAT 96
[2024-07-10 06:37] LABS: % Basophils 0.8 % (0-2); % Eosinophils 2.7 % (0-6); % Immature Granulocytes 4.3 % (0-0.5); % Lymphocytes 9.7 % (20.5-51.1); % Monocytes 7.1 % (1.7-9.3); % Neutrophils 75.4 % (42.2-75.2); Absolute Basophils 0.1 10^3/uL (0-0.2); Absolute Eosinophils 0.4 10^3/uL (0-0.7); Absolute Immature Granulocytes 0.6 10^3/uL (0-0.05); Absolute Lymphocytes 1.4 10^3/uL (1.2-3.4); Hematocrit 36.1 % (37.0-47.0); Hemoglobin 11.7 g/dL (12.0-16.0); Mean Corp Hgb Conc. 32.4 g/dL (33.0-37.0); Mean Corpuscular Hgb 27.3 pg (27.0-31.0); Mean Corpuscular Volume 84.1 fL (81.0-99.0); Mean Platelet Volume 9.5 fL (7.4-10.4); Nucleated Red Blood Cells % 0 %; Platelet Count 223 10^3/uL (130-400); Red Blood Cell Count 4.29 10^6/uL (4.20-5.40); Red Cell Dist. Width 15.1 % (11.5-14.5); White Blood Cell Count 14.6 10^3/uL (4.8-10.8)
[2024-07-10 06:53] LABS: Vancomycin Random 12.5 ug/ml
[2024-07-10 07:00] LABS: Blood Urea Nitrogen 52 mg/dl (7-17); Calcium 9.2 mg/dl (8.4-10.2); Carbon Dioxide 21 mmol/L (22-30); Chloride 102 mmol/L (98-107); Estimated Creatinine Clearance 34 ml/min; Glucose 177 mg/dl (70-99); Potassium 4.8 mmol/L (3.5-5.1); Sodium 140 mmol/L (135-145); eGFR 28.23
[2024-07-10 07:48] LABS: Glucose - Point of Care 199 mg/dl (70-99)
[2024-07-10] MEDS: NOVOLOG FLEXPEN SC ×4 (07:57→16:23)
[2024-07-10] MEDS: NOVOLOG FLEXPEN-LOW RESISTANCE 1 UNITS SC ×2 (07:58→16:09)
[2024-07-10] MEDS: BUMEX 0.5 MG PO (07:59)
[2024-07-10] MEDS: LANTUS 0.22 UNITS SC ×2 (07:59→21:55)
[2024-07-10] MEDS: ASPIR LOW (ENTERIC COATED) 81 MG PO (08:00)
[2024-07-10] MEDS: ProAmatine 2.5 MG PO ×3 (08:00→17:48)
[2024-07-10] MEDS: WELLBUTRIN SR (12 hour sustained release) 150 MG PO ×2 (08:01→20:54)
[2024-07-10] MEDS: THERAGRAN 1 TABLET PO (08:01)
[2024-07-10] MEDS: TRANDATE 100 MG PO ×2 (08:01→20:55)
[2024-07-10] MEDS: HEPARIN 5000 UNITS SC ×2 (08:02→16:02)
[2024-07-10] MEDS: STERILE WATER FOR INJECTION 10 ML IV ×2 (08:02→16:02)
[2024-07-10] MEDS: MAXIPIME 1000 MG IV ×2 (08:02→16:02)
[2024-07-10] MEDS: DRISDOL (VITAMIN D2) 50000 UNITS PO (08:18)
--- NOTE | 2024-07-10 09:13 | CON.PUL ---
Consultation
Consultation Request
Date/Time Consultation Requested: 07/10/2024-10 AM
Date/Time Consultation Performed: 07/10/2024-10:30 AM
Requesting Provider: Hospitalist
Performing Provider: Dr. Harris
Reason for Consultation: Pneumonia/empyema
Medical History
-
Chief Complaint: Shortness of breath and pneumonia
History of Present Illness:
69-year-old female with a history of hypertension, diabetes, chronic kidney disease admitted 07/01/2024 with pneumonia and empyema-pulmonary now consulted for pneumonia/empyema 07/10/2024.. The patient states that she had pneumonialike symptoms
which resolved. She still has some yellow sputum production. She had some fevers and chills. She was admitted and treated for pneumonia and then had a pleural effusion. CT chest shows loculated pleural effusion. She currently denies any chest
pain, chest tightness, pleurisy, hemoptysis, abdominal pain, nausea, leg swelling or weakness. She was diagnosed with obstructive sleep apnea when she lived in [place]. She's not using CPAP right now.
Past Medical History
Past Medical History: None (Hypertension. Diabetes-type II. VITALIY. Obesity. Chronic kidney disease. Left nephrectomy for renal cell carcinoma in remission. Diverticulosis. Fibroids.)
Social History
Tobacco: Non-smoker
Alcohol: None
Drug: None
Personal: Single
Living: Alone
Occupational Exposures: No known asbestos exposure
Environmental Exposures: No known tuberculosis exposure
Family History
Family History: Reviewed & Not Pertinent
Allergies / Home Medications
Allergies
Allergy/AdvReac Type Severity Reaction Status Date / Time
No Known Allergies Allergy Verified 07/01/24 13:18
Home Medications
�Medication �Instructions �Recorded �Confirmed �Last Taken �Type
aspirin 81 mg tablet,delayed 81 mg PO DAILY Blood Clot 07/01/24 07/01/24 06/30/24 History
release Prevention/Tx
bumetanide 0.5 mg tablet 0.5 mg PO DAILY Fluid 07/01/24 07/01/24 06/30/24 History
Retention/Swelling
bupropion HCl 150 mg tablet,12 hr 150 mg PO BID Mental Health/Anxiety 07/01/24 07/01/24 06/30/24 History
sustained-release (Wellbutrin SR)
ergocalciferol (vitamin D2) 1,250 1,250 mcg PO MO Supplement 07/01/24 07/01/24 06/30/24 History
mcg (50,000 unit) capsule
insulin glargine 100 unit/mL (3 20 unit SC HS Diabetes 07/01/24 07/01/24 06/30/24 History
mL) subcutaneous pen (Lantus
Solostar U-100 Insulin)
insulin lispro 100 unit/mL 15 unit SC AC Diabetes 07/01/24 07/01/24 06/30/24 History
subcutaneous solution
labetalol 200 mg tablet 200 mg PO BID Blood Pressure 07/01/24 07/01/24 06/30/24 History
losartan 100 mg tablet 100 mg PO DAILY Blood Pressure 07/01/24 07/01/24 06/30/24 History
rosuvastatin 40 mg tablet (Crestor) 40 mg PO QPM High Cholesterol 07/01/24 07/01/24 06/30/24 History
therapeutic multivitamin 1 tab PO DAILY Supplement 07/01/24 07/01/24 07/01/24 History
Review of Systems
-
Unable to Obtain full review of systems at this time due to: Other (Per HPI)
Vitals / Labs / Diagnostic Testing
Vital Signs
Temp Pulse Resp BP Pulse Ox
97.9 F 72 20 124/65 95
07/10/24 07:10 07/10/24 08:01 07/10/24 07:10 07/10/24 08:01 07/10/24 08:15
Lab Data
07/10/24 06:14
07/10/24 06:14
Microbiology
07/09/24 11:46 Pleural Fluid Gram Stain - Preliminary
07/08/24 15:20 Sputum Respiratory Culture - Final
07/08/24 15:20 Sputum Gram Stain - Final
Diagnostic Testing:
Physical Exam
-
Exam:
Well-nourished and well-developed in no apparent distress
HEENT-atraumatic, normocephalic
Neck-supple, no JVD, no bruit
Heart-regular rate and rhythm-no murmurs, rubs or gallops
Chest-clear to auscultation, no wheezes, crackles
Back-no tenderness
Abdomen-soft, nontender, nondistended, no hepatosplenomegaly
Extremities-no cyanosis, clubbing, edema and good peripheral pulses
Integument-intact, no rashes, lesions or ecchymosis
Neurology-alert and oriented, nonfocal motor and sensory exam
Assessment
-
69-year-old female with a history of hypertension, diabetes, chronic kidney disease admitted 07/01/2024 with pneumonia and empyema-pulmonary now consulted for pneumonia/empyema 07/10/2024.
Prvmmbpgs-ahzoslqsq-arkpfqoz
Empyema-thoracentesis 07/09/2024-WBC 29,000, pH less than 6.8, glucose less than 30, total protein 5.3, LDH [id number]-pdnzjyv
Acute on top of chronic renal failure
Hyperglycemia
Hyperkalemia
Leukocytosis
Ywxezv-zxznapfjks-ounqvhtfsy 11.7
Obesity-BMI 43
Obstructive sleep apnea
Conditions present prior to admission:
Hypertension.
Diabetes-type II.
Chronic kidney disease.
Left nephrectomy for renal cell carcinoma in remission.
Diverticulosis.
Obesity.
VITALIY-diagnosed Fflnqm-Lcswk-kczimktum not on CPAP
Fibroids.
Plan
Respiratory status still tenuous with ongoing leukocytosis and probable empyema
Supplemental oxygen
Incentive spirometry
Nebulizers if needed-currently not bronchospastic
Recommend chest tube insertion and evacuation of majority of loculated pleural effusion
Consider tPA/DNase
Consider thoracic surgical evaluation
Follow radiographically
Cultures reviewed
Sputum culture 07/08/2024-few WBCs, many squamous cells, mixed bacterial morphology
Urine Legionella and streptococcal antigens negative
MRSA screen negative
Blood cultures negative
Pleural fluid cultures 07/09/2024-no growth
Empiric antibiotics
Infectious disease following-correspondence reviewed
Monitor blood sugar
Insulin supplementation as needed
Diabetic nurse practitioner following
Follow hemoglobin
Transfuse if needed
DVT prophylaxis-on subcu heparin
Nutrition
Early mobilization.
Reviewed with Dr. Milton
Outpatient pulmonary/sleep disorders evaluation-radiographic follow-up, PFTs, sleep study
Diagnostic data:
Chest x-ray 07/01/2024-right lower lobe pneumonia
Chest x-ray 07/07/2024-stable opacification right lower lobe, consolidation and pleural effusion
Chest x-ray 07/09/2024-no pneumothorax, persistent loculated pleural effusion
CT chest 07/08/2024-right lower lobe consolidation with pneumonia, cardiomegaly, small right pleural effusion
CT head 07/01/2024-no acute intracranial abnormalities, small right frontal scalp soft tissue contusion/hematoma
CT abdomen and pelvis 07/01/2024-right lower lobe consolidation with surrounding effusion, diverticulosis, hepatomegaly
Thoracentesis right side 07/09/2024-successful evacuation of 10 mL of cloudy pleural fluid highly loculated on preprocedure ultrasound
Echocardiogram 07/23-EF 55-60%, aortic sclerosis without stenosis
Data Reviewed
-
EKG: Report reviewed by me
Radiology: Image personally visualized and interpreted and Report reviewed by me
CT Scan: Image personally visualized and interpreted and Report reviewed by me
Ultrasound: Report reviewed by me
Medical Tests (Nuc Med, Echo etc): Report reviewed by me
Labs: Labs reviewed by me
Old Records: Reviewed
Total Time Spent with Patient (in minutes): 55
--- NOTE | 2024-07-10 10:04 | PN.DE.MGMTRT ---
Insulin Management
- -
07/10/2024: Diabetes Management F/U:
69 year old female admitted with Right lower lobe pneumonia. PMH: HTN, Renal cell carcinoma s/p L nephrectomy and T2DM. Pt states was taking Lantus 20 units @ HS and Lispro 15 units AC prior to admission. Has a working meter- OneTouch with enough
supplies at home. States her PCP Dr. Stephen Harman recommended she starts seeing the [facility] next to the hospital. Provided her with name of practice and encouraged her to call as soon as she is feeling better. A1C 12.7% Cr 1.7, eGFR 32.26,
glucose on admission was 488 and has consistently remained elevated >200.
Pt awake, alert, oriented, sitting up in chair. Able to discuss diabetes mgt. Cr 1.9 eGFR 23.3
07/06 Premeal Glucose stable and in range 81 to 168, requiring no additional corrective insulin with meals
07/10 Fasting glucose 163, pt NPO for chest tube insertion and evacuation of loculated pleural effusion. AM NovoLog dose held.
Will make no changes, continue AC NovoLog 25 units, Lantus 22 units BID and low corrective insulin after procedure.
Will follow and make further insulin adjustments if needed.
Pt has a glucose meter and enough supplies at home.
Diabetes History
- -
Type of Diabetes: 2 requiring insulin
Pre-Admission Diabetes Regimen
07/10/24
06:14
Creatinine 1.9 H
Lab Results
Hemoglobin A1c 12.7 % (4.0-5.6) H 07/02/24 04:32
Insulin Pump Settings
IP Diabetes Regimen
07/09/24 07/09/24 07/09/24
12:23 16:21 21:30
Glucose
POC Glucose 131 H 121 H 106 H
07/10/24 07/10/24
06:14 07:47
Glucose 177 H
POC Glucose 199 H
Meal type: Breakfast
Meal type: Dinner
Meal type: Lunch
Amount consumed: 100%
Amount consumed: 100%
Patient Education
--- NOTE | 2024-07-10 10:18 | CM ---
Chart reviewed. Pt currently on IV abx. Per ID, can switch to oral at d/c
Planned chest tube today
Agreeable to [facility], referral prev. completed
CM will cont. following for any additional d/c needs
Plan: Home w/ [facility]
--- NOTE | 2024-07-10 10:50 | PHA.VAN.FU ---
Vancomycin Assessment / Plan
- Assessment
Renal Function: Stable
WBC's are: Stable (~ 14-15)
In the past 24 hrs, patient has been: Afebrile
Concomitant Antimicrobials: cefepime
- Assessment - Therapeutic Drug Monitoring
Random Level: 12.5 (~17 h after 2 gm LD adm)
- Dosing Plan
Continue: dose by random level (ISAAC on CKD)
Dosing by Level: Re-dose today (1000 mg x 1 dose)
- Monitoring Plan
Random Level: 0600 07/11/24
- Follow Up
Pharmacy will continue to follow.
Vancomycin Follow UP
- -
Patient Age: 69
Patient Sex: Female
Vancomycin Day #: 2
Indication: Pulmonary/Respiratory
Requesting Provider: Acosta
Height / Weight:
Height 5 ft 3 in
Actual Weight 111.329 kg
IBW in k.4
Adjusted BW in k
Pertinent Past Medical History: ISAAC on CKD. Unknown baseline. BMI = 43.5
- Vital Signs / Lab Results
Temp Pulse Resp BP Pulse Ox
97.9 F 72 20 124/65 97
07/10/24 07:10 07/10/24 08:01 07/10/24 07:10 07/10/24 08:01 07/10/24 09:25
Lab Results - Hematology
07/08/24 07/09/24 07/10/24
05:36 05:45 06:14
WBC 14.4 H 15.9 H 14.6 H
Lab Results - Chemistry
07/08/24 07/09/24 07/10/24
05:36 05:45 06:14
BUN 52 H 53 H 52 H
Creatinine 1.9 H 1.9 H 1.9 H
Estimated Creat Clear 34 34 34
07/09/24
10:46
Lactic Acid Cancelled
Microbiology Results
07/09/24 11:46 Body Fluid Culture - Preliminary
Pleural Fluid No Growth After 18-24 Hours
Gram Stain - Preliminary
07/08/24 15:20 Respiratory Culture - Final
Sputum Gram Stain - Final
Therapeutic Drug Monitoring
Random Vancomycin 12.5 ug/ml 07/10/24 06:14
[2024-07-10] MEDS: VANCOCIN 200 IV (11:16)
[2024-07-10] MEDS: FLUSH (NSS) 1 FLUSH IV (11:16)
[2024-07-10 12:36] LABS: Glucose - Point of Care 246 mg/dl (70-99)
[2024-07-10] MEDS: NOVOLOG FLEXPEN-LOW RESISTANCE 2 UNITS SC (12:43)
--- NOTE | 2024-07-10 14:33 | W.PN.HOSP.TC ---
Today's Communication/Plan
-
see note
Assessment / Plan
Assessment / Plan
CT chest
Right lower lobe consolidation suspicious for pneumonia with small right pleural effusion extending into the major and minor fissures. Cardiomegaly.
1. Right lower lobe pneumonia complicated with parapneumonic effusion
Sepsis -leukocytosis/Hypotension -POA
-Legionella/strep urine antigen/blood culture negative.
-Patient currently on empiric antibiotic vancomycin/cefepime
-ID following and help appreciated
-CT chest showing right lower lobe rounded consolidation with parapneumonic effusion
-[facility] did a diagnostic thoracentesis with drainage of 10 cc fluid. TWBC 29 k with PMN ~ 85%, ph <6.8, glu < 30. gram stain neg, culture pending.
-Pulmonology consulted for further help and discussed with interventional radiology for potential need of CT tube placement although per radiology there is not enough fluid to place chest tube. Follow-up chest ultrasound has been ordered
2. ISAAC on presumed CKD IV
Left nephrectomy with h/o RCC
-Patient creatinine unknown. Admission creatinine of 2.7--> down to 1.9 today. Upon discussion with daughter her creatinine was as high as 4 recently so this is improved from her baseline.
-US kidney is normal
-Continue to hold ARB, losartan but can resume upon discharge for nephro protective effect
-no urinary retention issues.
-Avoid nephrotoxic medication
3. Type 2 diabetes mellitus -uncontrolled
-Patient hemoglobin A1c of 12.7
-Managed by primary care physician, in process of seeing endocrinology-will refer as outpatient
-Diabetes nurse pressure helping and help appreciated.
4. Essential hypertension
-Blood pressure control only labetalol. Continue holding losartan.
5. Chronic back pain
Right foot numbness
-Suspected lumbar radiculopathy has diabetic neuropathy is usually symmetric
-CT abdomen pelvis showing did not show any major spinal changes
-Good palpable pulse on lower extremity, arterial Doppler ordered
6. HLD
- maintain on crestor
7. Orthostatic hypotension
-Continue using compression stockings
DVT prophylaxis:
SCD and add heparin SQ
CODE STATUS:
Full code
Care plan discussed with Pulmonology/[facility]
Total time spent : 53 mins
I personally saw and examined the patient.
I have reviewed all diagnostic interpretations and treatment plans as written.
Time includes patient management by me, time spent at the patients bedside, time to review lab and imaging results, discussing patient care, documentation in the medical record, and time spent with the family or caregiver and discussing care plan
with RN/Consultants..
Anticipated Discharge: > 48 hours
Subjective/Interval History
-
Date of Service: July 10, 2024
Still has some right sided discomfort
Afebrile
Objective Data
-
Labs:
Laboratory Results
07/10/24
06:14
WBC 14.6 H
Hgb 11.7 L
Hct 36.1 L
Plt Count 223
Sodium 140
Potassium 4.8
Chloride 102
Carbon Dioxide 21 L
BUN 52 H
Creatinine 1.9 H
Glucose 177 H
Calcium 9.2
Vital Signs:
Vital Signs
Temp Pulse Resp BP Pulse Ox
97.9 F 81 20 109/56 97
07/10/24 07:10 07/10/24 12:43 07/10/24 07:10 07/10/24 12:43 07/10/24 09:25
I&O
07/09/24 07/10/24 07/11/24
06:59 06:59 06:59
Intake Total 2159
Balance 2159
Review of Systems
-
Respiratory: Reports Cough and Pleurisy; Denies Trouble Breathing
Cardiac: Reports No Symptoms
Abdomen/GI: Reports No Symptoms
Physical Exam
-
General: No Apparent Distress and Comfortable
HEENT: Negative Oxygen
Respiratory: Clear to Auscultation
Cardiac: Regular Rhythm and S1/S2; Negative Murmur or Rub
GI: Soft, Nontender, Nondistended and Normal Bowel Sounds
Musculoskeletal: No Edema
Neuro: Awake, Alert, Oriented, No Motor Deficits and Nonfocal/Grossly Intact
Psych: Calm
[2024-07-10 16:10] LABS: Glucose - Point of Care 192 mg/dl (70-99)
[2024-07-10] MEDS: CRESTOR 40 MG PO (17:49)
[2024-07-10] MEDS: NOVOLOG FLEXPEN 25 UNITS SC (17:50)
--- NOTE | 2024-07-10 18:04 | PTCARENOTE ---
Received patient from IR s/p R chest tube placement. Dressing CDI.Pox: 95% RA. Patient denies pain/SOB. Call m[facility] within reach.
[2024-07-10] MEDS: TYLENOL 650 MG PO (20:54)
[2024-07-10 21:56] LABS: Glucose - Point of Care 181 mg/dl (70-99)
[2024-07-11] MEDS: HEPARIN 5000 UNITS SC ×4 (00:04→23:01)
[2024-07-11] MEDS: MAXIPIME 1000 MG IV ×2 (00:05→08:17)
[2024-07-11] MEDS: STERILE WATER FOR INJECTION 10 ML IV ×2 (00:05→08:18)
[2024-07-11 01:08] VITALS: BP 121/72
[2024-07-11 01:10] VITALS: BMI 44.0
[2024-07-11 07:30] LABS: Glucose - Point of Care 204 mg/dl (70-99)
[2024-07-11 07:33] VITALS: BP 129/74; BP 95/73; PULSE 100; PULSE 94
[2024-07-11 07:54] LABS: Hematocrit 34.9 % (37.0-47.0); Hemoglobin 11.4 g/dL (12.0-16.0); Mean Corp Hgb Conc. 32.7 g/dL (33.0-37.0); Mean Corpuscular Hgb 27.3 pg (27.0-31.0); Mean Corpuscular Volume 83.5 fL (81.0-99.0); Mean Platelet Volume 9.2 fL (7.4-10.4); Platelet Count 231 10^3/uL (130-400); Red Blood Cell Count 4.18 10^6/uL (4.20-5.40); Red Cell Dist. Width 15.3 % (11.5-14.5); White Blood Cell Count 11.4 10^3/uL (4.8-10.8)
[2024-07-11 08:13] LABS: Vancomycin Random 13.7 ug/ml
[2024-07-11] MEDS: LANTUS 0.22 UNITS SC ×2 (08:15→23:00)
[2024-07-11] MEDS: NOVOLOG FLEXPEN-LOW RESISTANCE 2 UNITS SC ×2 (08:16→12:08)
[2024-07-11] MEDS: NOVOLOG FLEXPEN 25 UNITS SC ×2 (08:16→12:07)
[2024-07-11] MEDS: TRANDATE 100 MG PO ×2 (08:18→19:38)
[2024-07-11] MEDS: THERAGRAN 1 TABLET PO (08:18)
[2024-07-11] MEDS: ASPIR LOW (ENTERIC COATED) 81 MG PO (08:18)
[2024-07-11] MEDS: WELLBUTRIN SR (12 hour sustained release) 150 MG PO ×2 (08:19→19:34)
[2024-07-11] MEDS: ProAmatine 2.5 MG PO ×3 (08:19→17:21)
[2024-07-11] MEDS: BUMEX 0.5 MG PO (08:19)
[2024-07-11 08:40] LABS: Blood Urea Nitrogen 53 mg/dl (7-17); Calcium 9.4 mg/dl (8.4-10.2); Carbon Dioxide 24 mmol/L (22-30); Chloride 103 mmol/L (98-107); Estimated Creatinine Clearance 36 ml/min; Glucose 195 mg/dl (70-99); Sodium 141 mmol/L (135-145); eGFR 30.12
--- NOTE | 2024-07-11 09:12 | PN.DE.MGMTRT ---
Insulin Management
- -
07/10/2024: Diabetes Management F/U:
69 year old female admitted with Right lower lobe pneumonia. PMH: HTN, Renal cell carcinoma s/p L nephrectomy and T2DM. Pt states was taking Lantus 20 units @ HS and Lispro 15 units AC prior to admission. Has a working meter- OneTouch with enough
supplies at home. States her PCP Dr. Stephen Harman recommended she starts seeing the Endocrine group next to the hospital. Provided her with name of practice and encouraged her to call as soon as she is feeling better. A1C 12.7% Cr 1.7, eGFR 32.26,
glucose on admission was 488 and has consistently remained elevated >200.
Pt awake, alert, oriented, sitting up in chair. Able to discuss diabetes mgt.
07/10 Fasting glucose 199, s/p chest tube insertion and evacuation of loculated pleural effusion.
07/11 Fasting glucose 204; cr 1.8, eGFR 30.12. Pre lunch glucose 208.
Will increase AC NovoLog 27 units, and continue Lantus 22 units BID and low corrective insulin.
Will follow and make further insulin adjustments if needed.
Pt has a glucose meter and enough supplies at home, she did express interest in CGM, explained process of primary doctor or endo placing order with 2 office notes.
Diabetes History
- -
Type of Diabetes: 2 requiring insulin
Pre-Admission Diabetes Regimen
07/11/24
07:32
Creatinine 1.8 H
Lab Results
Hemoglobin A1c 12.7 % (4.0-5.6) H 07/02/24 04:32
Insulin Pump Settings
IP Diabetes Regimen
07/10/24 07/10/24 07/10/24
12:34 16:08 21:55
Glucose
POC Glucose 246 H 192 H 181 H
07/11/24 07/11/24
07:29 07:32
Glucose 195 H
POC Glucose 204 H
Meal type: Breakfast
Meal type: Lunch
Meal type: Breakfast
Amount consumed: 100%
Patient Education
--- NOTE | 2024-07-11 09:41 | W.PN.PUL.V3 ---
Today's Communication / Plan
-
Monitor chest tube drainage
Follow radiographically
Consider DNase/tPA if persistent fluid and drainage decreases
Antibiotics
Assessment
-
69-year-old female with a history of hypertension, diabetes, chronic kidney disease admitted 07/01/2024 with pneumonia and empyema-pulmonary now consulted for pneumonia/empyema 07/10/2024.
Aswtcguzc-nsebhqijg-encpkwqv
Empyema-thoracentesis 07/09/2024-WBC 29,000, pH less than 6.8, glucose less than 30, total protein 5.3, LDH 4097-hjawrto-yksdmfw
Acute on top of chronic renal failure
Hyperglycemia
Hyperkalemia
Leukocytosis
Wrdsmo-izutbsnzyl-tgsvedqeuu 11.7
Obesity-BMI 43
Obstructive sleep apnea
Conditions present prior to admission:
Hypertension.
Diabetes-type II.
Chronic kidney disease.
Left nephrectomy for renal cell carcinoma in remission.
Diverticulosis.
Obesity.
VITALIY-diagnosed Acemii-Klatd-fnngzzjcw not on CPAP
Fibroids.
Plan
Respiratory status has improved slightly
Supplemental oxygen-assess discharge supplemental oxygen needs
Incentive spirometry
Nebulizers if needed-currently not bronchospastic
Chest x-ray 07/11/2024-improved basilar opacification suggesting improved pneumonia and pleural effusion, small right pleural effusion
Chest tube placed 07/10/2024 by interventional radiology-10 mL of cloudy fluid returned
Chest tube on wall suction
Monitor chest tube output--80 mL / 24-hour
Follow chest x-ray
Consider tPA/DNase if stops draining
Consider thoracic surgical evaluation
Follow radiographically
Cultures reviewed
Sputum culture 07/08/2024-few WBCs, many squamous cells, mixed bacterial morphology
Urine Legionella and streptococcal antigens negative
MRSA screen negative
Blood cultures negative
Pleural fluid cultures 07/09/2024-no growth
Empiric antibiotics
Infectious disease following-correspondence reviewed
Monitor blood sugar
Insulin supplementation as needed
Diabetic nurse practitioner following
Follow hemoglobin
Transfuse if needed
DVT prophylaxis-on subcu heparin
Nutrition
Early mobilization.
Reviewed with Dr. Milton
Outpatient pulmonary/sleep disorders evaluation-radiographic follow-up, PFTs, sleep study
Diagnostic data:
Chest x-ray 07/01/2024-right lower lobe pneumonia
Chest x-ray 07/07/2024-stable opacification right lower lobe, consolidation and pleural effusion
Chest x-ray 07/09/2024-no pneumothorax, persistent loculated pleural effusion
CT chest 07/08/2024-right lower lobe consolidation with pneumonia, cardiomegaly, small right pleural effusion
CT head 07/01/2024-no acute intracranial abnormalities, small right frontal scalp soft tissue contusion/hematoma
CT abdomen and pelvis 07/01/2024-right lower lobe consolidation with surrounding effusion, diverticulosis, hepatomegaly
Thoracentesis right side 07/09/2024-successful evacuation of 10 mL of cloudy pleural fluid highly loculated on preprocedure ultrasound
Echocardiogram 07/23-EF 55-60%, aortic sclerosis without stenosis
Subjective Data
-
Date of Service:
Date of Service: July 11, 2024
Chief Complaint: Pulmonary Follow Up and Dyspnea Follow Up
Subjective:
Feels better, no complaints of shortness of breath, chest pain or abdominal pain
Review of Systems
General: Other (Per HPI)
Objective Data
Data Reviewed
Vital Signs / I&O:
Vital Signs
Temp Pulse Resp BP Pulse Ox
97.9 F 94 20 129/74 97
07/11/24 07:33 07/11/24 07:33 07/11/24 07:33 07/11/24 07:33 07/11/24 07:33
Intake and Output
07/10/24 07/11/24 07/12/24
06:59 06:59 06:59
Intake Total 2009 240 / 240
Output Total 80 / 80
Balance 2009 160 / 160
SaO2: 97
Physical Exam
General: Respiratory Distress (n) and Comfortable
HEENT: Normocephalic, Anicteric and Moist Mucous Membranes
Cardiovascular: Regular Rhythm
Respiratory: Wheeze (n), Crackles, Rhonchi, Non-Labored Respirations, Accessory Resp Muscle Use (n) and Stridor (n)
GI: Soft, Non Distended and Non Tender
Neurology: Awake, Alert and No Motor Deficits
Skin: Warm, Good Color, Cyanosis (n), Jaundice (n) and Rash (n)
Labs/Micro/Reports
Lab Data
07/11/24 07:32
07/11/24 07:32
Microbiology
07/09/24 11:46 Pleural Fluid Body Fluid Culture - Preliminary
No Growth After 18-24 Hours
07/09/24 11:46 Pleural Fluid Gram Stain - Preliminary
07/08/24 15:20 Sputum Respiratory Culture - Final
07/08/24 15:20 Sputum Gram Stain - Final
--- NOTE | 2024-07-11 09:48 | PHA.VAN.FU ---
Vancomycin Assessment / Plan
- Assessment
Renal Function: Stable
WBC's are: Trending Down
In the past 24 hrs, patient has been: Afebrile
Concomitant Antimicrobials: cefepime
- Assessment - Therapeutic Drug Monitoring
Random Level: 13.7 - drawn ~20H after previous dose of 1g
- Dosing Plan
Dosing by Level: Re-dose today (Vanc 1000mg)
- Monitoring Plan
Random Level: 07/12 0600
- Follow Up
Pharmacy will continue to follow.
Vancomycin Follow UP
- -
Patient Age: 69
Patient Sex: Female
Vancomycin Day #: 3
Indication: Pulmonary/Respiratory
Requesting Provider: Acosta
Pertinent Antimicrobial Allergies:
NKDA
Height / Weight:
Height 5 ft 3 in
Actual Weight 112.718 kg
IBW in k.4
Adjusted BW in k
Pertinent Past Medical History: CKD, BMI ~44
- Vital Signs / Lab Results
Temp Pulse Resp BP Pulse Ox
97.9 F 94 20 129/74 97
07/11/24 07:33 07/11/24 07:33 07/11/24 07:33 07/11/24 07:33 07/11/24 09:41
Lab Results - Hematology
07/09/24 07/10/24 07/11/24
05:45 06:14 07:32
WBC 15.9 H 14.6 H 11.4 H
Lab Results - Chemistry
07/09/24 07/10/24 07/11/24
05:45 06:14 07:32
BUN 53 H 52 H 53 H
Creatinine 1.9 H 1.9 H 1.8 H
Estimated Creat Clear 34 34 36
07/09/24
10:46
Lactic Acid Cancelled
Microbiology Results
07/09/24 11:46 Body Fluid Culture - Preliminary
Pleural Fluid No Growth After 18-24 Hours
Gram Stain - Preliminary
07/08/24 15:20 Respiratory Culture - Final
Sputum Gram Stain - Final
Therapeutic Drug Monitoring
Random Vancomycin 13.7 ug/ml 07/11/24 07:32
[2024-07-11 11:10] LABS: Glucose - Point of Care 208 mg/dl (70-99)
[2024-07-11] MEDS: VANCOCIN 200 IV (11:26)
[2024-07-11 14:15] VITALS: BP 121/71; PULSE 81; O2SAT 98
--- NOTE | 2024-07-11 14:21 | W.PN.HOSP.TC ---
Today's Communication/Plan
-
monitor CT tube output
continue abx
ID asked to re-evaluate
Assessment / Plan
Assessment / Plan
CT chest
Right lower lobe consolidation suspicious for pneumonia with small right pleural effusion extending into the major and minor fissures. Cardiomegaly.
1. Right lower lobe pneumonia complicated with empyema
Sepsis -leukocytosis/Hypotension -POA
-Legionella/strep urine antigen/blood culture negative.
-Patient currently on empiric antibiotic vancomycin/cefepime
-ID following and help appreciated
-CT chest showing right lower lobe rounded consolidation with parapneumonic effusion
-IRAD did a diagnostic thoracentesis with drainage of 10 cc fluid. TWBC 29 k with PMN ~ 85%, ph <6.8, glu < 30. gram stain neg, culture pending.
-Follow-up chest ultrasound showing small loculated effusion, interventional radiology was able to place chest tube again. Drain 60 mL overnight.
-ID asked to reevaluate for possible need of adjusting length of antibiotic therapy
2. ISAAC on presumed CKD IV
Left nephrectomy with h/o RCC
-Patient creatinine unknown. Admission creatinine of 2.7--> down to 1.8 today. Upon discussion with daughter her creatinine was as high as 4 recently so this is improved from her baseline.
-US kidney is normal
-Continue to hold ARB, losartan but can resume upon discharge for nephro protective effect
-no urinary retention issues.
-Avoid nephrotoxic medication
3. Type 2 diabetes mellitus -uncontrolled
-Patient hemoglobin A1c of 12.7
-Managed by primary care physician, in process of seeing endocrinology-will refer as outpatient
-Diabetes nurse pressure helping and help appreciated.
4. Essential hypertension
-Blood pressure control only labetalol. Continue holding losartan.
5. Chronic back pain
Right foot numbness
-Suspected lumbar radiculopathy has diabetic neuropathy is usually symmetric
-CT abdomen pelvis showing did not show any major spinal changes
-Good palpable pulse on lower extremity
6. HLD
- maintain on crestor
7. Orthostatic hypotension
-Continue using compression stockings
DVT prophylaxis:
SCD and add heparin SQ
CODE STATUS:
Full code
Care plan discussed with Pulmonology
Total time spent : 51 mins
I personally saw and examined the patient.
I have reviewed all diagnostic interpretations and treatment plans as written.
Time includes patient management by me, time spent at the patients bedside, time to review lab and imaging results, discussing patient care, documentation in the medical record, and time spent with the family or caregiver and discussing care plan
with RN/Consultants.
Anticipated Discharge: 24 - 48 hours
Subjective/Interval History
-
Date of Service: July 11, 2024
Patient subjective feeling better
Afebrile
Right side pain present
Objective Data
-
Labs:
Laboratory Results
07/11/24
07:32
WBC 11.4 H
Hgb 11.4 L
Hct 34.9 L
Plt Count 231
Sodium 141
Potassium 5.0
Chloride 103
Carbon Dioxide 24
BUN 53 H
Creatinine 1.8 H
Glucose 195 H
Calcium 9.4
Vital Signs:
Vital Signs
Temp Pulse Resp BP Pulse Ox
97.9 F 94 20 98/59 97
07/11/24 07:33 07/11/24 07:33 07/11/24 07:33 07/11/24 13:15 07/11/24 09:41
I&O
07/10/24 07/11/24 07/12/24
06:59 06:59 06:59
Intake Total 2009 240 / 240
Output Total 80 / 80
Balance 2009 160 / 160
Review of Systems
-
Respiratory: Reports No Symptoms
Cardiac: Reports No Symptoms
Abdomen/GI: Reports No Symptoms
Physical Exam
-
General: No Apparent Distress and Comfortable
HEENT: Negative Oxygen
Respiratory: Clear to Auscultation and Chest Tubes (Right side - cloudy fluid)
Cardiac: Regular Rhythm and S1/S2; Negative Murmur or Rub
GI: Soft, Nontender and Nondistended
Musculoskeletal: No Edema
Neuro: Awake, Alert, Oriented, No Motor Deficits and Nonfocal/Grossly Intact
Psych: Calm
--- NOTE | 2024-07-11 14:39 | W.PN.ID1 ---
Date of Service
Date of Service: July 11, 2024
Today's Communication
Narrow to ceftriaxone alone.
Assessment / Plan
Right lower lobe pneumonia (CAP)
Suspected parapneumonic effusion
-Chest tube in place
Leukocytosis
Reported fever
CKD
Hx HTN
Hx RCC
Recommendations:
Currently day #3 of cefepime and vancomycin; (d#11 abx). Pleural fluid cultures are negative, suggesting that prior ceftriaxone likely infected.
Transition back to ceftriaxone alone.
Monitor chest tube output.
����������������������������������������������������������
Chief Complaint
-: Pneumonia and Other (Parapneumonic effusion)
Subjective / Review of Systems
Review of Systems: No Fever and No Chills
Vital Signs / Physical Exam
Vital Signs
Vital Signs
Temp Pulse Resp BP Pulse Ox
97.9 F 94 20 98/59 97
07/11/24 07:33 07/11/24 07:33 07/11/24 07:33 07/11/24 13:15 07/11/24 09:41
Physical Exam
Constitutional: No Acute Distress, Comfortable, Non-toxic and Obese
Head: Normocephalic
Eyes: Sclera Anicteric
Cardiovascular: Regular Rate and S1/S2
Pulmonary: Clear, Coarse, Non Labored and Other (Right chest tube in place.); Negative Wheezes
Gastrointestinal: Soft, Non Tender and Non Distended
Skin: Warm and Dry
Neurological: Awake, Alert and Oriented
Objective Data
Lab Data
Lab Results
07/11/24 07:32
07/11/24 07:32
Estimated Creat Clear 36 ml/min 07/11/24 07:32
Lactic Acid Cancelled 07/09/24 10:46
Total Bilirubin 0.7 mg/dl (0.2-1.3) 07/02/24 04:32
AST 28 U/L (14-36) 07/02/24 04:32
ALT 29 U/L (0-35) 07/02/24 04:32
Alkaline Phosphatase 92 U/L (38-126) 07/02/24 04:32
Most recent labs reviewed.
Micro Results:
07/09/24 11:46 Body Fluid Culture - Preliminary
Pleural Fluid No Growth After 48 Hours
Gram Stain - Preliminary
07/08/24 15:20 Respiratory Culture - Final
Sputum Gram Stain - Final
07/01/24 15:51 Blood Culture - Final
Blood/Venous No Growth - Final Report
07/01/24 15:51 Blood Culture - Final
Blood/Venous No Growth - Final Report
07/05/24 15:01 Legionella Urinary Antigen - Final
Urine Negative for Legionella pneumophila Serogroup 1 antigen.
A negative result does not rule out the possiblity of
Legionella infection due to other serogroups or species of
Legionella. Clinical correlation is recommended.
Streptococcus pneumoniae Antigen (M - Final
Negative for Streptococcus pneumoniae antigen.
A negative result does not exclude infection with
Streptococcus pneumoniae. Clinical correlation is
recommended.
07/01/24 15:22 Urine Culture - Final
Urine
07/02/24 04:32 MRSA Screen - Final
Nose No Methicillin Resistant Staphylococcus aureus isolated.
Imaging:
07/03/2024 CXR (2 view): Evaluation is limited by patient body habitus. Low lung volumes noted. A right basilar opacification/infiltrate is noted, and appears to have progressed from prior imaging on 07/01/2024.
07/01/2024 CT abdomen/pelvis without contrast: A right lower lobe consolidation with surrounding effusion is suspicious for PNA with parapneumonic effusion. No evidence of acute traumatic injury to the abdomen.
[2024-07-11 14:54] VITALS: BP 112/69
--- NOTE | 2024-07-11 15:33 | CM ---
Chart reviewed and therapeutic case manager met with patient, chest tube still in place, plan is to home with [facility].
Plan; Home with [facility] when stable.
[2024-07-11] MEDS: ROCEPHIN 2000 MG IV (15:47)
[2024-07-11] MEDS: STERILE WATER FOR INJECTION 20 ML IV (15:49)
[2024-07-11 16:03] LABS: Glucose - Point of Care 99 mg/dl (70-99)
[2024-07-11] MEDS: NOVOLOG FLEXPEN-LOW RESISTANCE SC (16:51)
[2024-07-11] MEDS: NOVOLOG FLEXPEN 27 UNITS SC (17:21)
[2024-07-11] MEDS: CRESTOR 40 MG PO (17:21)
[2024-07-11 21:31] LABS: Glucose - Point of Care 81 mg/dl (70-99)
[2024-07-11 22:37] VITALS: BP 107/56
[2024-07-11 22:38] VITALS: BP 107/56; BP 96/51; PULSE 73; PULSE 76
[2024-07-12 02:20] LABS: Glucose - Point of Care 147 mg/dl (70-99)
[2024-07-12 07:18] VITALS: BP 116/78
[2024-07-12 07:38] LABS: Glucose - Point of Care 194 mg/dl (70-99)
--- NOTE | 2024-07-12 08:03 | PN.DE.MGMTRT ---
Insulin Management
- -
07/12/2024: Diabetes Management Follow up
69 year old female admitted with Right lower lobe pneumonia. PMH: HTN, Renal cell carcinoma s/p L nephrectomy and T2DM. Pt states was taking Lantus 20 units @ HS and Lispro 15 units AC prior to admission. Has a working meter- OneTouch with enough
supplies at home. States her PCP Dr. Stephen Harman recommended she starts seeing the Endocrine group next to the hospital. Provided her with name of practice and encouraged her to call as soon as she is feeling better. A1C 12.7% Cr 1.7, eGFR 32.26,
glucose on admission was 488 and has consistently remained elevated >200.
Pt awake, alert, oriented, sitting up in chair. Able to discuss diabetes mgt.
07/10 Fasting glucose 199, s/p chest tube insertion and evacuation of loculated pleural effusion.
07/11 Fasting glucose 204; cr 1.8, eGFR 30.12. Pre lunch glucose 208. AC NovoLog increased to 27 units. Pre dinner glucose improved to 99, HS 81. Continue Lantus 22 units BID and low corrective insulin.
07/12 2:19AM glucose 147, fasting glucose 194, will continue current regimen lantus 22 units BID with novolog 27 AC and low corrective.
Will follow and make further insulin adjustments if needed.
Pt has a glucose meter and enough supplies at home, she did express interest in CGM, explained process of primary doctor or endo placing order with 2 office notes.
Diabetes History
- -
Type of Diabetes: 2 requiring insulin
Pre-Admission Diabetes Regimen
07/11/24
07:32
Creatinine 1.8 H
Lab Results
Hemoglobin A1c 12.7 % (4.0-5.6) H 07/02/24 04:32
Insulin Pump Settings
IP Diabetes Regimen
07/11/24 07/11/24 07/11/24
07:32 11:07 16:01
Glucose 195 H
POC Glucose 208 H 99
07/11/24 07/12/24 07/12/24
21:29 02:19 07:35
Glucose
POC Glucose 81 147 H 194 H
Meal type: Lunch
Meal type: Breakfast
Amount consumed: 100%
Amount consumed: 100%
Patient Education
[2024-07-12 08:47] LABS: Blood Urea Nitrogen 52 mg/dl (7-17); Calcium 9.3 mg/dl (8.4-10.2); Carbon Dioxide 26 mmol/L (22-30); Chloride 101 mmol/L (98-107); Estimated Creatinine Clearance 32 ml/min; Glucose 180 mg/dl (70-99); Hematocrit 36.4 % (37.0-47.0); Hemoglobin 11.9 g/dL (12.0-16.0); Mean Corp Hgb Conc. 32.7 g/dL (33.0-37.0); Mean Corpuscular Hgb 27.9 pg (27.0-31.0); Mean Corpuscular Volume 85.2 fL (81.0-99.0); Mean Platelet Volume 9.6 fL (7.4-10.4); Platelet Count 243 10^3/uL (130-400); Potassium 4.8 mmol/L (3.5-5.1); Red Blood Cell Count 4.27 10^6/uL (4.20-5.40); Red Cell Dist. Width 15.5 % (11.5-14.5); Sodium 141 mmol/L (135-145); White Blood Cell Count 11.8 10^3/uL (4.8-10.8); eGFR 26.54
--- NOTE | 2024-07-12 09:22 | W.PN.PUL.V3 ---
Today's Communication / Plan
-
Monitor chest tube output
Chest x-ray reviewed-obtain CT chest to rule out additional pockets or collections
If majority pleural fluid evacuated and consider chest tube discontinuation
If persistent pockets of potentially infected fluid then tPA/DNase
Assessment
-
69-year-old female with a history of hypertension, diabetes, chronic kidney disease admitted 07/01/2024 with pneumonia and empyema-pulmonary now consulted for pneumonia/empyema 07/10/2024.
Dpzibfgvf-yucqjtdld-tsgfhkzi
Empyema-thoracentesis 07/09/2024-WBC 29,000, pH less than 6.8, glucose less than 30, total protein 5.3, LDH 6075-pyrospd-cextnmr
Acute on top of chronic renal failure
Hyperglycemia
Hyperkalemia
Leukocytosis
Wcpzjl-uavghaiydt-plpkxryrrz 11.7
Obesity-BMI 43
Obstructive sleep apnea
Conditions present prior to admission:
Hypertension.
Diabetes-type II.
Chronic kidney disease.
Left nephrectomy for renal cell carcinoma in remission.
Diverticulosis.
Obesity.
VITALIY-diagnosed Aggrct-Zfauw-dsqppjffb not on CPAP
Fibroids.
Plan
Respiratory status continues to improve
Supplemental oxygen-assess discharge supplemental oxygen needs
Incentive spirometry
Nebulizers if needed-currently not bronchospastic
Chest x-ray 07/11/2024-improved basilar opacification suggesting improved pneumonia and pleural effusion, small right pleural effusion
Chest x-ray 07/12/2024-stable, small right pleural effusion slightly increased lower lung opacification
Chest tube placed 07/10/2024 by interventional radiology-10 mL of cloudy fluid returned
Chest tube on wall suction
Monitor chest tube output--80 mL /first 24-hour, and now 12 mm / 24-hour
Follow chest x-ray
CT chest today-if no significant fluid collections then consider chest tube removal, if continues with pockets then consider repositioning chest tube, tPA/DNase, etc.
Consider tPA/DNase if stops draining and persistent pockets of fluid exist
Consider thoracic surgical evaluation
Follow radiographically
Cultures reviewed
Sputum culture 07/08/2024-few WBCs, many squamous cells, mixed bacterial morphology
Urine Legionella and streptococcal antigens negative
MRSA screen negative
Blood cultures negative
Pleural fluid cultures 07/09/2024-no growth
Empiric antibiotics
Infectious disease following-correspondence reviewed
Monitor blood sugar
Insulin supplementation as needed
Diabetic nurse practitioner following
Follow hemoglobin
Transfuse if needed
DVT prophylaxis-on subcu heparin
Nutrition
Early mobilization.
Reviewed with Dr. Milton
Outpatient pulmonary/sleep disorders evaluation-radiographic follow-up, PFTs, sleep study
Diagnostic data:
Chest x-ray 07/01/2024-right lower lobe pneumonia
Chest x-ray 07/07/2024-stable opacification right lower lobe, consolidation and pleural effusion
Chest x-ray 07/09/2024-no pneumothorax, persistent loculated pleural effusion
CT chest 07/08/2024-right lower lobe consolidation with pneumonia, cardiomegaly, small right pleural effusion
CT head 07/01/2024-no acute intracranial abnormalities, small right frontal scalp soft tissue contusion/hematoma
CT abdomen and pelvis 07/01/2024-right lower lobe consolidation with surrounding effusion, diverticulosis, hepatomegaly
Thoracentesis right side 07/09/2024-successful evacuation of 10 mL of cloudy pleural fluid highly loculated on preprocedure ultrasound
Echocardiogram 07/23-EF 55-60%, aortic sclerosis without stenosis
Subjective Data
-
Date of Service:
Date of Service: July 12, 2024
Chief Complaint: Pulmonary Follow Up and Dyspnea Follow Up
Subjective:
Denies any worsening shortness of breath, chest tube site pain manageable, no increased shortness of breath, productive cough or abdominal pain
Review of Systems
General: Other (Per HPI)
Objective Data
Data Reviewed
Vital Signs / I&O:
Vital Signs
Temp Pulse Resp BP Pulse Ox
98.3 F 90 20 116/78 96
07/12/24 07:18 07/12/24 07:18 07/12/24 07:18 07/12/24 07:18 07/12/24 07:18
Intake and Output
07/11/24 07/12/24 07/13/24
06:59 06:59 06:59
Intake Total 240 / 240 1200 / 1200
Output Total 80 / 80
Balance 160 / 160 1188 / 1188
SaO2: 96
Physical Exam
General: Respiratory Distress (n) and Comfortable
HEENT: Normocephalic, Anicteric and Moist Mucous Membranes
Cardiovascular: Regular Rhythm
Respiratory: Wheeze (n), Crackles, Rhonchi, Non-Labored Respirations, Accessory Resp Muscle Use (n) and Stridor (n)
GI: Soft, Non Distended and Non Tender
Neurology: Awake, Alert and No Motor Deficits
Skin: Warm, Good Color, Cyanosis (n), Jaundice (n) and Rash (n)
Labs/Micro/Reports
Lab Data
07/12/24 07:15
07/12/24 07:15
Microbiology
07/09/24 11:46 Pleural Fluid Body Fluid Culture - Preliminary
No Growth After 48 Hours
07/09/24 11:46 Pleural Fluid Gram Stain - Preliminary
07/08/24 15:20 Sputum Respiratory Culture - Final
07/08/24 15:20 Sputum Gram Stain - Final
[2024-07-12] MEDS: NOVOLOG FLEXPEN 27 UNITS SC ×3 (09:26→18:32)
[2024-07-12] MEDS: NOVOLOG FLEXPEN-LOW RESISTANCE 1 UNITS SC ×2 (09:27→13:40)
[2024-07-12] MEDS: BUMEX 0.5 MG PO (09:29)
[2024-07-12] MEDS: ASPIR LOW (ENTERIC COATED) 81 MG PO (09:29)
[2024-07-12] MEDS: HEPARIN 5000 UNITS SC ×2 (09:30→18:18)
[2024-07-12] MEDS: ProAmatine 2.5 MG PO ×3 (09:31→18:33)
[2024-07-12] MEDS: WELLBUTRIN SR (12 hour sustained release) 150 MG PO ×2 (09:33→20:04)
[2024-07-12] MEDS: LANTUS 0.22 UNITS SC ×2 (09:33→21:32)
[2024-07-12] MEDS: THERAGRAN 1 TABLET PO (09:34)
[2024-07-12] MEDS: TRANDATE 100 MG PO ×2 (09:35→20:07)
[2024-07-12 11:20] VITALS: PULSE 71; O2SAT 97
[2024-07-12 11:25] VITALS: PULSE 71; O2SAT 97
[2024-07-12 12:22] LABS: Glucose - Point of Care 194 mg/dl (70-99)
--- NOTE | 2024-07-12 14:04 | CM ---
Chart reviewed and plan is to home when stable, with [facility].
Plan; Home with [facility].
--- NOTE | 2024-07-12 15:11 | W.PN.HOSP.TC ---
Today's Communication/Plan
-
f/u CT tube image reviewed
await further pulmo input
Assessment / Plan
Assessment / Plan
CT chest
Right lower lobe consolidation suspicious for pneumonia with small right pleural effusion extending into the major and minor fissures. Cardiomegaly.
CT chest 07/12
There is decreased size of the loculated, small right pleural effusion with fluid in the right minor and major fissures. The posterior approach right pigtail chest tube tip appears within the lateral aspect of the effusion. There is slightly
decreased right basilar opacities, likely due to slightly improving infectious process.
The left lung is clear. No left-sided pleural effusion.

1. Right lower lobe pneumonia complicated with empyema
Sepsis -leukocytosis/Hypotension -POA
-Legionella/strep urine antigen/blood culture negative.
-Patient currently on empiric antibiotic vancomycin/cefepime
-ID following and help appreciated
-CT chest showing right lower lobe rounded consolidation with parapneumonic effusion
-IRAD did a diagnostic thoracentesis with drainage of 10 cc fluid. TWBC 29 k with PMN ~ 85%, ph <6.8, glu < 30. gram stain neg, culture pending.
-Status post right-sided chest tube placement on 07/10. Repeat CT chest findings as above.
2. ISAAC on presumed CKD IV
Left nephrectomy with h/o RCC
-Patient creatinine unknown. Admission creatinine of 2.7--> 2 today. Per daughter her creatinine was as high as 4 recently so this is improved from her baseline.
-US kidney is normal
-Continue to hold ARB, losartan but can resume upon discharge for nephro protective effect
-no urinary retention issues.
-Avoid nephrotoxic medication
3. Type 2 diabetes mellitus -uncontrolled
-Patient hemoglobin A1c of 12.7
-Managed by primary care physician, in process of seeing endocrinology-will refer as outpatient
-Diabetes nurse pressure helping and help appreciated.
4. Essential hypertension
-Blood pressure control only labetalol. Continue holding losartan.
5. Chronic back pain
Right foot numbness
-Suspected lumbar radiculopathy has diabetic neuropathy is usually symmetric
-CT abdomen pelvis showing did not show any major spinal changes
-Good palpable pulse on lower extremity
6. HLD
- maintain on crestor
7. Orthostatic hypotension
-Continue using compression stockings
Heparin subq
CODE STATUS: Full code
Anticipated Discharge: 24 - 48 hours
Subjective/Interval History
-
Date of Service: July 12, 2024
Some right lower rib discomfort
not on oxygen
Objective Data
-
Labs:
Laboratory Results
07/12/24
07:15
WBC 11.8 H
Hgb 11.9 L
Hct 36.4 L
Plt Count 243
Sodium 141
Potassium 4.8
Chloride 101
Carbon Dioxide 26
BUN 52 H
Creatinine 2.0 H
Glucose 180 H
Calcium 9.3
Vital Signs:
Vital Signs
Temp Pulse Resp BP Pulse Ox
98.3 F 90 20 116/78 96
07/12/24 07:18 07/12/24 09:31 07/12/24 07:18 07/12/24 09:31 07/12/24 09:22
I&O
07/11/24 07/12/24 07/13/24
06:59 06:59 06:59
Intake Total 240 / 240 1200 / 1200
Output Total 80 / 80
Balance 160 / 160 1188 / 1188
Review of Systems
-
Respiratory: Reports Pleurisy; Denies Cough
Cardiac: Reports No Symptoms
Abdomen/GI: Reports No Symptoms
Physical Exam
-
General: No Apparent Distress and Comfortable
HEENT: Negative Oxygen
Respiratory: Clear to Auscultation and Chest Tubes (Right side - cloudy fluid)
Cardiac: Regular Rhythm and S1/S2; Negative Murmur or Rub
GI: Soft, Nontender and Nondistended
Musculoskeletal: No Edema
Neuro: Awake, Alert, Oriented, No Motor Deficits and Nonfocal/Grossly Intact
Psych: Calm
[2024-07-12 15:43] VITALS: BP 113/58; BP 113/71; PULSE 92; PULSE 97
[2024-07-12 15:44] VITALS: BP 113/71
[2024-07-12 16:13] LABS: Glucose - Point of Care 136 mg/dl (70-99)
--- NOTE | 2024-07-12 17:24 | PN.IRAD.UPD ---
Update Note - IRAD
- -
TPA 10 MG in a total volume of 50 ml 0.9%sodium chloride, DORNASE 5MG in a total volume of 50 ml 0.9% sodium chloride, 12.5 ml 0.9% sodium chloride instilled via right chest tube at bedside at 1715. Chest tube clamped at that time. RN notified.
--- NOTE | 2024-07-12 17:24 | W.PN.UPDATE ---
Update Note
Progress Note Update
- Pleural lysis performed through posterior R chest tube.
- Chest tube is clamped. Can unclamp and re-attach to wall suction this evening at 7pm.
[2024-07-12] MEDS: ROCEPHIN 2000 MG IV (18:19)
[2024-07-12] MEDS: STERILE WATER FOR INJECTION 20 ML IV (18:24)
[2024-07-12] MEDS: NOVOLOG FLEXPEN-LOW RESISTANCE SC (18:33)
[2024-07-12] MEDS: CRESTOR 40 MG PO (18:33)
[2024-07-12 21:08] LABS: Glucose - Point of Care 74 mg/dl (70-99)
[2024-07-12 23:05] VITALS: BP 114/53
[2024-07-13] MEDS: HEPARIN 5000 UNITS SC ×3 (00:24→17:13)
[2024-07-13 02:01] LABS: Glucose - Point of Care 162 mg/dl (70-99)
[2024-07-13 07:28] LABS: Glucose - Point of Care 213 mg/dl (70-99)
--- NOTE | 2024-07-13 07:48 | PN.DE.MGMTRT ---
Insulin Management
- -
07/13/2024: Diabetes Management Follow up
69 year old female admitted with Right lower lobe pneumonia. PMH: HTN, Renal cell carcinoma s/p L nephrectomy and T2DM. Pt states was taking Lantus 20 units @ HS and Lispro 15 units AC prior to admission. Has a working meter- OneTouch with enough
supplies at home. States her PCP Dr. Stephen Harman recommended she starts seeing the Endocrine group next to the hospital. Provided her with name of practice and encouraged her to call as soon as she is feeling better. A1C 12.7% Cr 1.7, eGFR 32.26,
glucose on admission was 488 and has consistently remained elevated >200.
Pt awake, alert, oriented, sitting up in chair. Able to discuss diabetes mgt.
07/12 2:19AM glucose 147, fasting glucose 194, will continue current regimen lantus 22 units BID with novolog 27 AC and low corrective.
07/13 HS glucose 74, patient was given [employer] trace crackers and peanut butter, rechecked @ 2am - 162. Fasting today 213. Will continue current regimen, lantus 22 BID with novolog 27 AC and low corrective. Discussed with patient that in the future,
whether here or at home to take the crackers and peanut butter but avoid the juice as it most likely contributed to fasting glucose elevation
Will follow and make further insulin adjustments if needed.
Pt has a glucose meter and enough supplies at home, she did express interest in CGM, explained process of primary doctor or endo placing order with 2 office notes.
Diabetes History
- -
Type of Diabetes: 2 requiring insulin
Pre-Admission Diabetes Regimen
07/12/24
07:15
Creatinine 2.0 H
Lab Results
Hemoglobin A1c 12.7 % (4.0-5.6) H 07/02/24 04:32
Insulin Pump Settings
IP Diabetes Regimen
07/12/24 07/12/24 07/12/24
07:15 12:21 16:12
Glucose 180 H
POC Glucose 194 H 136 H
07/12/24 07/13/24 07/13/24
21:07 01:59 07:26
Glucose
POC Glucose 74 162 H 213 H
Meal type: Lunch
Meal type: Breakfast
Amount consumed: 100%
Amount consumed: 100%
Patient Education
[2024-07-13 07:57] VITALS: BP 115/73
[2024-07-13 08:38] LABS: Hematocrit 36.1 % (37.0-47.0); Hemoglobin 11.7 g/dL (12.0-16.0); Mean Corp Hgb Conc. 32.4 g/dL (33.0-37.0); Mean Corpuscular Hgb 27.5 pg (27.0-31.0); Mean Corpuscular Volume 84.7 fL (81.0-99.0); Mean Platelet Volume 9.5 fL (7.4-10.4); Platelet Count 236 10^3/uL (130-400); Red Blood Cell Count 4.26 10^6/uL (4.20-5.40); Red Cell Dist. Width 15.6 % (11.5-14.5); White Blood Cell Count 13.5 10^3/uL (4.8-10.8)
[2024-07-13 08:51] LABS: Blood Urea Nitrogen 52 mg/dl (7-17); Calcium 9.3 mg/dl (8.4-10.2); Carbon Dioxide 25 mmol/L (22-30); Chloride 100 mmol/L (98-107); Estimated Creatinine Clearance 34 ml/min; Glucose 206 mg/dl (70-99); Potassium 4.9 mmol/L (3.5-5.1); Sodium 138 mmol/L (135-145); eGFR 28.23
[2024-07-13] MEDS: LANTUS 0.22 UNITS SC ×2 (09:33→22:37)
[2024-07-13] MEDS: NOVOLOG FLEXPEN 27 UNITS SC ×3 (09:33→17:14)
[2024-07-13] MEDS: BUMEX 0.5 MG PO (09:34)
[2024-07-13] MEDS: ASPIR LOW (ENTERIC COATED) 81 MG PO (09:34)
[2024-07-13] MEDS: NOVOLOG FLEXPEN-LOW RESISTANCE 2 UNITS SC (09:34)
[2024-07-13] MEDS: WELLBUTRIN SR (12 hour sustained release) 150 MG PO ×2 (09:34→22:37)
[2024-07-13] MEDS: TRANDATE 100 MG PO ×2 (09:35→22:48)
[2024-07-13] MEDS: THERAGRAN 1 TABLET PO (09:36)
[2024-07-13] MEDS: ProAmatine 2.5 MG PO ×3 (09:36→17:15)
--- NOTE | 2024-07-13 10:46 | W.PN.PUL.V3 ---
Today's Communication / Plan
-
.
Monitor chest tube output.
Follow radiographically.
Consider repeat TPA/DNase instillation.
Assessment
-
69-year-old female with a history of hypertension, diabetes, chronic kidney disease admitted 07/01/2024 with pneumonia and empyema-pulmonary now consulted for pneumonia/empyema 07/10/2024.
Njeyvrlvx-kqsmachgk-rxtlqlge
Empyema-thoracentesis 07/09/2024-WBC 29,000, pH less than 6.8, glucose less than 30, total protein 5.3, LDH [id number]
Acute on top of chronic renal failure
Hyperglycemia
Hyperkalemia
Leukocytosis
Nzhnwn-sfvpgjlpyu-saqpyltfsv 11.7
Obesity-BMI 43
Obstructive sleep apnea
Conditions present prior to admission:
Hypertension.
Diabetes-type II.
Chronic kidney disease.
Left nephrectomy for renal cell carcinoma in remission.
Diverticulosis.
Obesity.
VITALIY-diagnosed Qrkqxr-Ekimp-osvilepvq not on CPAP
Fibroids.
Plan
Respiratory status continues to improve
Supplemental oxygen-assess discharge supplemental oxygen needs
Incentive spirometry
Nebulizers if needed-currently not bronchospastic
Chest x-ray 07/11/2024-improved basilar opacification suggesting improved pneumonia and pleural effusion, small right pleural effusion
Chest x-ray 07/12/2024-stable, small right pleural effusion slightly increased lower lung opacification
Chest tube placed 07/10/2024 by interventional radiology-10 mL of cloudy fluid returned
Chest tube on wall suction
Monitor chest tube output--80 mL /first 24-hour, and now 12 mm / 24-hour
Follow chest x-ray
CT chest . 07/12/24-decrease in size of loculated small right pleural effusion, left lung is clear.
Chest x-ray 07/13/24-Moderate sized harshly loculated pleural fluid
TPA/DNase instillation occurred 07/12/24-200 mL fluid evacuation.
Follow radiographically and consider repeat TPA/DNase instillation 07/14/24
Consider thoracic surgical evaluation
Follow radiographically
Cultures reviewed
Sputum culture 07/08/2024-few WBCs, many squamous cells, mixed bacterial morphology
Urine Legionella and streptococcal antigens negative
MRSA screen negative
Blood cultures negative
Pleural fluid cultures 07/09/2024-no growth
Empiric antibiotics
Infectious disease following-correspondence reviewed
Monitor blood sugar
Insulin supplementation as needed
Diabetic nurse practitioner following-correspondence reviewed
Follow hemoglobin
Transfuse if needed
DVT prophylaxis-on subcu heparin
Nutrition
Early mobilization.
Reviewed with Dr. Milton
Outpatient pulmonary/sleep disorders evaluation-radiographic follow-up, PFTs, sleep study
Diagnostic data:
Chest x-ray 07/01/2024-right lower lobe pneumonia
Chest x-ray 07/07/2024-stable opacification right lower lobe, consolidation and pleural effusion
Chest x-ray 07/09/2024-no pneumothorax, persistent loculated pleural effusion
CT chest 07/08/2024-right lower lobe consolidation with pneumonia, cardiomegaly, small right pleural effusion
CT head 07/01/2024-no acute intracranial abnormalities, small right frontal scalp soft tissue contusion/hematoma
CT abdomen and pelvis 07/01/2024-right lower lobe consolidation with surrounding effusion, diverticulosis, hepatomegaly
Thoracentesis right side 07/09/2024-successful evacuation of 10 mL of cloudy pleural fluid highly loculated on preprocedure ultrasound
Echocardiogram 07/23-EF 55-60%, aortic sclerosis without stenosis
Subjective Data
-
Date of Service:
Date of Service: July 13, 2024
Chief Complaint: Pulmonary Follow Up and Dyspnea Follow Up
Subjective:
Overall feels better, less short of breath, minimal chest tube site pain, no productive cough or abdominal pain
Review of Systems
General: Other ( per HPI)
Objective Data
Data Reviewed
Vital Signs / I&O:
Vital Signs
Temp Pulse Resp BP Pulse Ox
98.0 F 74 18 115/73 98
07/13/24 07:57 07/13/24 09:34 07/13/24 07:57 07/13/24 09:34 07/13/24 07:57
Intake and Output
07/12/24 07/13/24 07/14/24
06:59 06:59 06:59
Intake Total 1200 / 1200 960 / 960
Output Total 200 / 200
Balance 1188 / 1188 760 / 760
SaO2: 98
Physical Exam
General: Respiratory Distress (n) and Comfortable
HEENT: Normocephalic, Anicteric and Moist Mucous Membranes
Cardiovascular: Regular Rhythm
Respiratory: Wheeze (n), Crackles, Rhonchi, Non-Labored Respirations, Accessory Resp Muscle Use (n), Stridor (n) and Chest Tube
GI: Soft, Non Distended and Non Tender
Neurology: Awake, Alert and No Motor Deficits
Skin: Warm, Good Color, Cyanosis (n), Jaundice (n) and Rash (n)
Labs/Micro/Reports
Lab Data
07/13/24 07:29
07/13/24 07:29
Microbiology
07/09/24 11:46 Pleural Fluid Body Fluid Culture - Final
No Growth After 72 Hours
07/09/24 11:46 Pleural Fluid Gram Stain - Final
[2024-07-13 12:23] LABS: Glucose - Point of Care 273 mg/dl (70-99)
[2024-07-13] MEDS: NOVOLOG FLEXPEN-LOW RESISTANCE 3 UNITS SC (12:37)
--- NOTE | 2024-07-13 14:06 | W.PN.HOSP.TC ---
Today's Communication/Plan
-
see note
Assessment / Plan
Assessment / Plan
CT chest
Right lower lobe consolidation suspicious for pneumonia with small right pleural effusion extending into the major and minor fissures. Cardiomegaly.
CT chest 07/12
There is decreased size of the loculated, small right pleural effusion with fluid in the right minor and major fissures. The posterior approach right pigtail chest tube tip appears within the lateral aspect of the effusion. There is slightly
decreased right basilar opacities, likely due to slightly improving infectious process.
The left lung is clear. No left-sided pleural effusion.

1. Right lower lobe pneumonia complicated with empyema
Sepsis -leukocytosis/Hypotension -POA
-Legionella/strep urine antigen/blood culture negative.
-Patient currently on empiric antibiotic vancomycin/cefepime
-ID following and help appreciated
-CT chest showing right lower lobe rounded consolidation with parapneumonic effusion
-[facility] did a diagnostic thoracentesis with drainage of 10 cc fluid. TWBC 29 k with PMN ~ 85%, ph <6.8, glu < 30. gram stain neg, culture pending.
-Status post right-sided chest tube placement on 07/10. Repeat CT chest findings as above.
-Status post tPA injection intrapleurally, good drainage post lysis , f/u CXR reviewed
-further intrapleural tPA/dnase injection per pulmonology recommendation
2. ISAAC on presumed CKD IV
Left nephrectomy with h/o RCC
-Patient creatinine unknown. Admission creatinine of 2.7--> 2 today. Per daughter her creatinine was as high as 4 recently so this is improved from her baseline.
-US kidney is normal
-Continue to hold ARB, losartan but can resume upon discharge for nephro protective effect
-no urinary retention issues.
-Avoid nephrotoxic medication
3. Type 2 diabetes mellitus -uncontrolled
-Patient hemoglobin A1c of 12.7
-Managed by primary care physician, in process of seeing endocrinology-will refer as outpatient
-Diabetes nurse pressure helping and help appreciated.
4. Essential hypertension
-Blood pressure control only labetalol. Continue holding losartan.
5. Chronic back pain
Right foot numbness
-Suspected lumbar radiculopathy has diabetic neuropathy is usually symmetric
-CT abdomen pelvis showing did not show any major spinal changes
-Good palpable pulse on lower extremity
6. HLD
- maintain on crestor
7. Orthostatic hypotension
-Continue using compression stockings
Heparin subq
CODE STATUS: Full code
Discussed with pulmonology
Anticipated Discharge: 24 - 48 hours
Subjective/Interval History
-
Date of Service: July 13, 2024
clinically feeling better
right sided lower chest pain is better
Objective Data
-
Labs:
Laboratory Results
07/13/24
07:29
WBC 13.5 H
Hgb 11.7 L
Hct 36.1 L
Plt Count 236
Sodium 138
Potassium 4.9
Chloride 100
Carbon Dioxide 25
BUN 52 H
Creatinine 1.9 H
Glucose 206 H
Calcium 9.3
Vital Signs:
Vital Signs
Temp Pulse Resp BP Pulse Ox
98.0 F 83 18 112/57 98
07/13/24 07:57 07/13/24 12:39 07/13/24 07:57 07/13/24 12:39 07/13/24 10:46
I&O
07/12/24 07/13/24 07/14/24
06:59 06:59 06:59
Intake Total 1200 / 1200 960 / 960
Output Total 200 / 200
Balance 1188 / 1188 760 / 760
Review of Systems
-
Respiratory: Reports No Symptoms
Cardiac: Reports No Symptoms
Abdomen/GI: Reports No Symptoms
Physical Exam
-
General: No Apparent Distress and Comfortable
HEENT: Negative Oxygen
Respiratory: Clear to Auscultation and Chest Tubes (Right side - cloudy yellow fluid)
Cardiac: Regular Rhythm and S1/S2; Negative Murmur or Rub
GI: Soft, Nontender and Nondistended
Musculoskeletal: No Edema
Neuro: Awake, Alert, Oriented, No Motor Deficits and Nonfocal/Grossly Intact
Psych: Calm
[2024-07-13 14:48] VITALS: BP 117/72
--- NOTE | 2024-07-13 14:54 | W.PN.ID1 ---
Date of Service
Date of Service: July 13, 2024
Today's Communication
Continue antibiotics
Assessment / Plan
Right lower lobe pneumonia (CAP)
Parapneumonic effusion
-Chest tube in place
Leukocytosis
Reported fever
CKD
Hx HTN
Hx RCC
Recommendations:
Currently d#13 abx.
Continue ceftriaxone. Will need to complete a 6-week course of antibiotics.
Monitor chest tube output.
����������������������������������������������������������
Chief Complaint
-: Pneumonia and Other (Parapneumonic effusion)
Subjective / Review of Systems
Patient seen and examined. Reports ongoing cough, although overall improved.
Review of Systems: No Fever and No Chills
Vital Signs / Physical Exam
Vital Signs
Vital Signs
Temp Pulse Resp BP Pulse Ox
98.3 F 78 18 117/72 97
07/13/24 14:48 07/13/24 14:48 07/13/24 14:48 07/13/24 14:48 07/13/24 14:48
Physical Exam
Constitutional: No Acute Distress, Comfortable and Non-toxic
Head: Normocephalic
Eyes: Sclera Anicteric
Cardiovascular: Regular Rate and S1/S2
Pulmonary: Clear, Coarse, Non Labored and Other (Right chest tube in place.); Negative Wheezes
Gastrointestinal: Soft, Non Tender and Non Distended
Extremities: Negative Cyanosis or Erythema
Skin: Warm and Dry
Neurological: Awake, Alert and Oriented
Psychological: Calm
Objective Data
Lab Data
Lab Results
07/13/24 07:29
07/13/24 07:29
Estimated Creat Clear 34 ml/min 07/13/24 07:29
Lactic Acid Cancelled 07/09/24 10:46
Total Bilirubin 0.7 mg/dl (0.2-1.3) 07/02/24 04:32
AST 28 U/L (14-36) 07/02/24 04:32
ALT 29 U/L (0-35) 07/02/24 04:32
Alkaline Phosphatase 92 U/L (38-126) 07/02/24 04:32
Most recent labs reviewed.
Micro Results:
07/13/24 09:16 MRSA Screen - Pending
Nose
07/09/24 11:46 Body Fluid Culture - Final
Pleural Fluid No Growth After 72 Hours
Gram Stain - Final
07/08/24 15:20 Respiratory Culture - Final
Sputum Gram Stain - Final
07/01/24 15:51 Blood Culture - Final
Blood/Venous No Growth - Final Report
07/01/24 15:51 Blood Culture - Final
Blood/Venous No Growth - Final Report
07/05/24 15:01 Legionella Urinary Antigen - Final
Urine Negative for Legionella pneumophila Serogroup 1 antigen.
A negative result does not rule out the possiblity of
Legionella infection due to other serogroups or species of
Legionella. Clinical correlation is recommended.
Streptococcus pneumoniae Antigen (M - Final
Negative for Streptococcus pneumoniae antigen.
A negative result does not exclude infection with
Streptococcus pneumoniae. Clinical correlation is
recommended.
07/01/24 15:22 Urine Culture - Final
Urine
07/02/24 04:32 MRSA Screen - Final
Nose No Methicillin Resistant Staphylococcus aureus isolated.
Imaging:
07/03/2024 CXR (2 view): Evaluation is limited by patient body habitus. Low lung volumes noted. A right basilar opacification/infiltrate is noted, and appears to have progressed from prior imaging on 07/01/2024.
07/01/2024 CT abdomen/pelvis without contrast: A right lower lobe consolidation with surrounding effusion is suspicious for PNA with parapneumonic effusion. No evidence of acute traumatic injury to the abdomen.
--- NOTE | 2024-07-13 15:48 | CM ---
CM reviewed chart, patient seen bedside. Patient reports no concerns at this time. Patients daughter, Selene, asking for update on medical status, will relay to nurse. CM will continue to follow for all discharge planing needs.
Plan; home with [facility], watch for IV antibiotic needs.
[2024-07-13 16:55] LABS: Glucose - Point of Care 162 mg/dl (70-99)
[2024-07-13] MEDS: ROCEPHIN 2000 MG IV (17:13)
[2024-07-13] MEDS: STERILE WATER FOR INJECTION 20 ML IV (17:13)
[2024-07-13] MEDS: NOVOLOG FLEXPEN-LOW RESISTANCE 1 UNITS SC (17:14)
[2024-07-13] MEDS: CRESTOR 40 MG PO (17:15)
[2024-07-13 21:27] LABS: Glucose - Point of Care 89 mg/dl (70-99)
[2024-07-13 22:55] VITALS: BP 123/60
[2024-07-14] MEDS: HEPARIN 5000 UNITS SC ×4 (00:02→23:17)
[2024-07-14] MEDS: TYLENOL 650 MG PO (03:41)
[2024-07-14] MEDS: ROBITUSSIN AC 10 ML PO ×2 (07:12→23:24)
[2024-07-14 07:30] VITALS: BP 112/82
[2024-07-14 07:34] LABS: Glucose - Point of Care 199 mg/dl (70-99)
--- NOTE | 2024-07-14 07:44 | PN.DE.MGMTRT ---
Insulin Management
- -
07/14/2024: Diabetes Management F/U:
69 year old female admitted with Right lower lobe pneumonia. PMH: HTN, Renal cell carcinoma s/p L nephrectomy and T2DM. Pt states was taking Lantus 20 units @ HS and Lispro 15 units AC prior to admission. Has a working meter- OneTouch with enough
supplies at home. States her PCP Dr. Stephen Harman recommended she starts seeing the [facility] next to the hospital. Provided her with name of practice and encouraged her to call as soon as she is feeling better. A1C 12.7% Cr 1.7, eGFR 32.26,
glucose on admission was 488 and has consistently remained elevated >200.
Pt awake, alert, oriented, sitting up in chair. Able to discuss diabetes mgt.
07/13 HS glucose 89, premeal glucose range 162 to 273, fasting glucose 199 this AM.
Will continue current regimen Lantus 22 units BID with NovoLog 27 AC and low corrective.
Discussed with patient that in the future, whether here or at home to take the crackers and peanut butter but avoid the juice as it most likely contributed to fasting glucose elevation
Will follow and make further insulin adjustments if needed.
Pt has a glucose meter and enough supplies at home, she did express interest in CGM, explained process of primary doctor or endo placing order with 2 office notes
Diabetes History
- -
Type of Diabetes: 2 requiring insulin
Pre-Admission Diabetes Regimen
07/13/24
07:29
Creatinine 1.9 H
Lab Results
Hemoglobin A1c 12.7 % (4.0-5.6) H 07/02/24 04:32
Insulin Pump Settings
IP Diabetes Regimen
07/13/24 07/13/24 07/13/24
07:29 12:21 16:53
Glucose 206 H
POC Glucose 273 H 162 H
07/13/24 07/14/24
21:26 07:31
Glucose
POC Glucose 89 199 H
Meal type: Dinner
Meal type: Lunch
Meal type: Breakfast
Amount consumed: 100%
Amount consumed: 100%
Amount consumed: 100%
Patient Education
[2024-07-14] MEDS: LANTUS 0.22 UNITS SC ×2 (08:27→21:43)
[2024-07-14] MEDS: NOVOLOG FLEXPEN-LOW RESISTANCE 1 UNITS SC ×3 (08:27→17:34)
[2024-07-14] MEDS: NOVOLOG FLEXPEN 27 UNITS SC ×3 (08:27→17:34)
[2024-07-14] MEDS: BUMEX 0.5 MG PO (08:28)
[2024-07-14] MEDS: TRANDATE 100 MG PO ×2 (08:28→20:33)
[2024-07-14] MEDS: THERAGRAN 1 TABLET PO (08:28)
[2024-07-14] MEDS: ProAmatine 2.5 MG PO ×3 (08:28→17:34)
[2024-07-14] MEDS: ASPIR LOW (ENTERIC COATED) 81 MG PO (08:28)
[2024-07-14] MEDS: WELLBUTRIN SR (12 hour sustained release) 150 MG PO ×2 (08:29→20:33)
--- NOTE | 2024-07-14 10:12 | W.PN.PUL.V3 ---
Today's Communication / Plan
-
Monitor chest tube output.
Consider additional TPA/DNAs.
Follow radiographically
Assessment
-
69-year-old female with a history of hypertension, diabetes, chronic kidney disease admitted 07/01/2024 with pneumonia and empyema-pulmonary now consulted for pneumonia/empyema 07/10/2024.
Mwtfbbftn-vokqbzieu-paoghxui
Empyema-thoracentesis 07/09/2024-WBC 29,000, pH less than 6.8, glucose less than 30, total protein 5.3, LDH [id number]-ihpnsjm
Acute on top of chronic renal failure
Hyperglycemia
Hyperkalemia
Leukocytosis
Bbggyl-yhlymoanwb-gxoilpgdfx 11.7
Obesity-BMI 43
Obstructive sleep apnea
Conditions present prior to admission:
Hypertension.
Diabetes-type II.
Chronic kidney disease.
Left nephrectomy for renal cell carcinoma in remission.
Diverticulosis.
Obesity.
VITALIY-diagnosed Bckxyp-Mrzxj-nefpjfedp not on CPAP
Fibroids.
Plan
Respiratory status continues to improve
Supplemental oxygen-assess discharge supplemental oxygen needs
Incentive spirometry
Nebulizers if needed-currently not bronchospastic
Chest x-ray 07/11/2024-improved basilar opacification suggesting improved pneumonia and pleural effusion, small right pleural effusion
Chest x-ray 07/12/2024-stable, small right pleural effusion slightly increased lower lung opacification.
Chest x-ray 07/14/24-slight improvement opacifications in the right lower lobe
Chest tube placed 07/10/2024 by interventional radiology-10 mL of cloudy fluid returned
Chest tube on wall suction
Monitor chest tube output--80 mL /first 24-hour, and now 12 mm / 24-hour, 200 mL after TPA/DNase injection
Follow chest x-ray
CT chest 07/12/24-decrease in size of loculated small right pleural effusion, left lung is clear.
Chest x-ray 07/13/24-Moderate sized harshly loculated pleural fluid
TPA/DNase instillation occurred 07/12/24-200 mL fluid evacuation.
Consider repeat TPA/DNase instillation if pleural fluid drainage decreases and persistent fluid exists
Consider thoracic surgical evaluation If unable to evacuate majority of pleural fluid
Follow radiographically
Cultures reviewed
Sputum culture 07/08/2024-few WBCs, many squamous cells, mixed bacterial morphology
Urine Legionella and streptococcal antigens negative
MRSA screen negative
Blood cultures negative
Pleural fluid cultures 07/09/2024-no growth
Empiric antibiotics
Infectious disease following-correspondence reviewed
Monitor blood sugar
Insulin supplementation as needed
Diabetic nurse practitioner following-correspondence reviewed
Follow hemoglobin
Transfuse if needed
DVT prophylaxis-on subcu heparin
Nutrition
Early mobilization.
Reviewed with Dr. Milton
Outpatient pulmonary/sleep disorders evaluation-radiographic follow-up, PFTs, sleep study
Diagnostic data:
Chest x-ray 07/01/2024-right lower lobe pneumonia
Chest x-ray 07/07/2024-stable opacification right lower lobe, consolidation and pleural effusion
Chest x-ray 07/09/2024-no pneumothorax, persistent loculated pleural effusion
CT chest 07/08/2024-right lower lobe consolidation with pneumonia, cardiomegaly, small right pleural effusion
CT head 07/01/2024-no acute intracranial abnormalities, small right frontal scalp soft tissue contusion/hematoma
CT abdomen and pelvis 07/01/2024-right lower lobe consolidation with surrounding effusion, diverticulosis, hepatomegaly
Thoracentesis right side 07/09/2024-successful evacuation of 10 mL of cloudy pleural fluid highly loculated on preprocedure ultrasound
Echocardiogram 07/23-EF 55-60%, aortic sclerosis without stenosis
Subjective Data
-
Date of Service:
Date of Service: July 14, 2024
Chief Complaint: Pulmonary Follow Up and Dyspnea Follow Up
Subjective:
Overall feels better, no complete shortness breath, chest congestion, minimal productive cough, no abdominal pain, mild chest tube site pain
Review of Systems
General: Other ( per HPI)
Objective Data
Data Reviewed
Vital Signs / I&O:
Vital Signs
Temp Pulse Resp BP Pulse Ox
98.5 F 80 16 112/82 97
07/14/24 07:30 07/14/24 07:30 07/14/24 07:30 07/14/24 07:30 07/14/24 01:13
Intake and Output
07/13/24 07/14/24 07/15/24
06:59 06:59 06:59
Intake Total 960 / 960 480 / 480
Output Total 200 / 200 10 / 10
Balance 760 / 760 480 / 480 -10 / -10
SaO2: 97
Physical Exam
General: Respiratory Distress (n) and Comfortable
HEENT: Normocephalic, Anicteric and Moist Mucous Membranes
Cardiovascular: Regular Rhythm
Respiratory: Wheeze (n), Crackles, Rhonchi, Non-Labored Respirations, Accessory Resp Muscle Use (n), Stridor (n) and Chest Tube
GI: Soft, Non Distended and Non Tender
Neurology: Awake, Alert and No Motor Deficits
Skin: Warm, Good Color, Cyanosis (n), Jaundice (n) and Rash (n)
Labs/Micro/Reports
Lab Data
07/13/24 07:29
07/13/24 07:29
Microbiology
07/09/24 11:46 Pleural Fluid Body Fluid Culture - Final
No Growth After 72 Hours
07/09/24 11:46 Pleural Fluid Gram Stain - Final
--- NOTE | 2024-07-14 10:35 | W.PN.ID1 ---
Date of Service
Date of Service: July 14, 2024
Today's Communication
Continue antibiotics.
Assessment / Plan
Right lower lobe pneumonia (CAP)
Parapneumonic effusion
-Chest tube in place
Leukocytosis
Reported fever
-Remains afebrile at present.
CKD
Hx HTN
Hx RCC
Recommendations:
Currently d#14 abx.
Continue ceftriaxone. Will need to complete a 6-week course of antibiotics.
Home antibiotic infusion sheet placed on paper chart.
Monitor chest tube output.
Monitor white count temperature curve.
PICC line placement once home infusion set up.
����������������������������������������������������������
Chief Complaint
-: Pneumonia and Other (Parapneumonic effusion)
Subjective / Review of Systems
Patient seen and examined. Reports feeling well. Still with cough. Chest tube remains in place with continued, but improved drainage.
Vital Signs / Physical Exam
Vital Signs
Vital Signs
Temp Pulse Resp BP Pulse Ox
98.5 F 80 16 112/82 97
07/14/24 07:30 07/14/24 07:30 07/14/24 07:30 07/14/24 07:30 07/14/24 10:12
Physical Exam
Constitutional: No Acute Distress, Comfortable and Non-toxic
Head: Normocephalic
Eyes: Sclera Anicteric
Cardiovascular: Regular Rate and S1/S2
Pulmonary: Clear, Coarse, Non Labored and Other (Right chest tube in place. Serous drainage in Pleur-evac); Negative Wheezes
Gastrointestinal: Soft, Non Tender and Non Distended
Extremities: Negative Cyanosis or Erythema
Skin: Warm and Dry
Neurological: Awake, Alert and Oriented
Psychological: Calm
Objective Data
Lab Data
Lab Results
07/13/24 07:29
07/13/24 07:29
Estimated Creat Clear 34 ml/min 07/13/24 07:29
Lactic Acid Cancelled 07/09/24 10:46
Total Bilirubin 0.7 mg/dl (0.2-1.3) 07/02/24 04:32
AST 28 U/L (14-36) 07/02/24 04:32
ALT 29 U/L (0-35) 07/02/24 04:32
Alkaline Phosphatase 92 U/L (38-126) 07/02/24 04:32
Most recent labs reviewed.
Micro Results:
07/13/24 09:16 MRSA Screen - Pending
Nose
07/09/24 11:46 Body Fluid Culture - Final
Pleural Fluid No Growth After 72 Hours
Gram Stain - Final
07/08/24 15:20 Respiratory Culture - Final
Sputum Gram Stain - Final
07/01/24 15:51 Blood Culture - Final
Blood/Venous No Growth - Final Report
07/01/24 15:51 Blood Culture - Final
Blood/Venous No Growth - Final Report
07/05/24 15:01 Legionella Urinary Antigen - Final
Urine Negative for Legionella pneumophila Serogroup 1 antigen.
A negative result does not rule out the possiblity of
Legionella infection due to other serogroups or species of
Legionella. Clinical correlation is recommended.
Streptococcus pneumoniae Antigen (M - Final
Negative for Streptococcus pneumoniae antigen.
A negative result does not exclude infection with
Streptococcus pneumoniae. Clinical correlation is
recommended.
07/01/24 15:22 Urine Culture - Final
Urine
07/02/24 04:32 MRSA Screen - Final
Nose No Methicillin Resistant Staphylococcus aureus isolated.
Imaging:
07/03/2024 CXR (2 view): Evaluation is limited by patient body habitus. Low lung volumes noted. A right basilar opacification/infiltrate is noted, and appears to have progressed from prior imaging on 07/01/2024.
07/01/2024 CT abdomen/pelvis without contrast: A right lower lobe consolidation with surrounding effusion is suspicious for PNA with parapneumonic effusion. No evidence of acute traumatic injury to the abdomen.
[2024-07-14 11:30] VITALS: BP 108/68; PULSE 72; O2SAT 96
[2024-07-14 12:26] LABS: Glucose - Point of Care 151 mg/dl (70-99)
--- NOTE | 2024-07-14 13:27 | CM ---
Addendum entered by Anny Jones 07/14/24 13:50:
[facility]
[phone]

Original Note:
manager quality systems reviewed patient's chart and met with patient and per updated physician notes plan is to home with home infusion and visiting nurses, patient is aware that she needs to use a Medicare contracted visiting nurses and has selected [facility],
referral sent to [facility]. Infusion companies discussed with patient and she is agreeable to [facility], referral sent to [facility].
Plan; Home with [facility] for home infusion and [facility] visiting nurses.
[2024-07-14 16:00] VITALS: BP 97/74
--- NOTE | 2024-07-14 16:05 | W.PN.HOSP.TC ---
Today's Communication/Plan
-
abx per ID
possible CT tube removal in 24 hrs
Assessment / Plan
Assessment / Plan
CT chest
Right lower lobe consolidation suspicious for pneumonia with small right pleural effusion extending into the major and minor fissures. Cardiomegaly.
CT chest 07/12
There is decreased size of the loculated, small right pleural effusion with fluid in the right minor and major fissures. The posterior approach right pigtail chest tube tip appears within the lateral aspect of the effusion. There is slightly
decreased right basilar opacities, likely due to slightly improving infectious process.
The left lung is clear. No left-sided pleural effusion.

1. Right lower lobe pneumonia complicated with empyema
Sepsis -leukocytosis/Hypotension -POA
-Legionella/strep urine antigen/blood culture negative.
-Patient currently on empiric antibiotic vancomycin/cefepime
-ID following and help appreciated
-CT chest showing right lower lobe rounded consolidation with parapneumonic effusion
-IRAD did a diagnostic thoracentesis with drainage of 10 cc fluid. TWBC 29 k with PMN ~ 85%, ph <6.8, glu < 30. gram stain neg, culture pending.
-Status post right-sided chest tube placement on 07/10. Repeat CT chest findings as above.
-Status post tPA injection intrapleurally, good drainage post lysis , f/u CXR reviewed
-Drain output has decreased and potentially will be removed in 24hrs.
2. ISAAC on presumed CKD IV
Left nephrectomy with h/o RCC
-Patient creatinine unknown. Admission creatinine of 2.7--> 1.9 today. Per daughter her creatinine was as high as 4 recently so this is improved from her baseline.
-US kidney is normal
-Continue to hold ARB, losartan but can resume upon discharge for nephro protective effect
-no urinary retention issues.
-Avoid nephrotoxic medication
3. Type 2 diabetes mellitus -uncontrolled
-Patient hemoglobin A1c of 12.7
-Managed by primary care physician, in process of seeing endocrinology-will refer as outpatient
-Diabetes nurse pressure helping and help appreciated.
4. Essential hypertension
-Blood pressure control only labetalol. Continue holding losartan.
5. Chronic back pain
Right foot numbness
-Suspected lumbar radiculopathy has diabetic neuropathy is usually symmetric
-CT abdomen pelvis showing did not show any major spinal changes
-Good palpable pulse on lower extremity
6. HLD
- maintain on crestor
7. Orthostatic hypotension
-Continue using compression stockings
Heparin subq
CODE STATUS: Full code
Discussed with pulmonology
Anticipated Discharge: 24 - 48 hours
Subjective/Interval History
-
Date of Service: July 14, 2024
No dyspnea/hypoxia
Afebrile overnight
Right-sided chest tube drain output decreasing
Objective Data
-
Vital Signs:
Vital Signs
Temp Pulse Resp BP Pulse Ox
98.5 F 80 16 112/82 97
07/14/24 07:30 07/14/24 07:30 07/14/24 07:30 07/14/24 07:30 07/14/24 10:12
I&O
07/13/24 07/14/24 07/15/24
06:59 06:59 06:59
Intake Total 960 / 960 480 / 480
Output Total 200 / 200 10 10
Balance 760 / 760 480 / 480 -10 / -10
Review of Systems
-
Respiratory: Reports No Symptoms
Cardiac: Reports No Symptoms
Abdomen/GI: Reports No Symptoms
Physical Exam
-
General: No Apparent Distress and Comfortable
HEENT: Negative Oxygen
Respiratory: Clear to Auscultation and Chest Tubes (Right side - cloudy yellow fluid)
Cardiac: Regular Rhythm and S1/S2; Negative Murmur or Rub
GI: Soft, Nontender and Nondistended
Musculoskeletal: No Edema
Neuro: Awake, Alert, Oriented, No Motor Deficits and Nonfocal/Grossly Intact
Psych: Calm
[2024-07-14] MEDS: ROCEPHIN 2000 MG IV (16:32)
[2024-07-14] MEDS: STERILE WATER FOR INJECTION 20 ML IV (16:34)
[2024-07-14 17:34] LABS: Glucose - Point of Care 184 mg/dl (70-99)
[2024-07-14] MEDS: CRESTOR 40 MG PO (17:34)
[2024-07-14 21:42] LABS: Glucose - Point of Care 193 mg/dl (70-99)
[2024-07-14 23:08] VITALS: BP 124/81
[2024-07-15 06:52] LABS: Hematocrit 35.8 % (37.0-47.0); Hemoglobin 11.4 g/dL (12.0-16.0); Mean Corp Hgb Conc. 31.8 g/dL (33.0-37.0); Mean Corpuscular Hgb 27.1 pg (27.0-31.0); Platelet Count 252 10^3/uL (130-400); Red Blood Cell Count 4.21 10^6/uL (4.20-5.40); Red Cell Dist. Width 15.8 % (11.5-14.5); White Blood Cell Count 11.6 10^3/uL (4.8-10.8)
[2024-07-15 07:00] VITALS: BP 115/66
[2024-07-15 07:17] LABS: Blood Urea Nitrogen 57 mg/dl (7-17); Calcium 9.4 mg/dl (8.4-10.2); Carbon Dioxide 28 mmol/L (22-30); Chloride 99 mmol/L (98-107); Estimated Creatinine Clearance 31 ml/min; Glucose 191 mg/dl (70-99); Potassium 4.6 mmol/L (3.5-5.1); Sodium 139 mmol/L (135-145); eGFR 25.04
[2024-07-15 08:34] LABS: Glucose - Point of Care 195 mg/dl (70-99)
[2024-07-15] MEDS: WELLBUTRIN SR (12 hour sustained release) 150 MG PO ×2 (08:34→19:51)
[2024-07-15] MEDS: ASPIR LOW (ENTERIC COATED) 81 MG PO (08:34)
[2024-07-15] MEDS: ProAmatine 2.5 MG PO ×3 (08:34→17:20)
[2024-07-15] MEDS: TRANDATE 100 MG PO ×2 (08:35→19:51)
[2024-07-15] MEDS: THERAGRAN 1 TABLET PO (08:35)
[2024-07-15] MEDS: HEPARIN 5000 UNITS SC ×2 (08:35→17:19)
[2024-07-15] MEDS: BUMEX 0.5 MG PO (08:35)
[2024-07-15] MEDS: LANTUS 0.22 UNITS SC ×2 (08:35→20:59)
[2024-07-15] MEDS: NOVOLOG FLEXPEN 27 UNITS SC ×3 (08:36→17:20)
[2024-07-15] MEDS: NOVOLOG FLEXPEN-LOW RESISTANCE 1 UNITS SC ×2 (08:36→12:42)
--- NOTE | 2024-07-15 09:40 | W.PN.PUL3 ---
Today's Communication / Plan
-
Remove right-sided chest tube today
Pain control
Up OOB as tolerated
prn DuoNebs
Repeat CXR tomorrow
If confirmation is needed radiographically to assess persistence of right-sided empyema then she will need CT chest -this will be reassessed tomorrow
Abx as per ID
Pulmonary service will continue to follow along
Assessment
-
69-year-old female with a history of hypertension, diabetes, chronic kidney disease admitted 07/01/2024 with pneumonia and empyema-pulmonary now consulted for pneumonia/empyema 07/10/2024.
Impression:
[id number]-[id number]
Empyema-thoracentesis 07/09/2024-WBC 29,000, pH less than 6.8, glucose less than 30, total protein 5.3, LDH [id number]-[id number]
ISAAC superimposed on CKD
Hyperglycemia
Hyperkalemia�resolved
Leukocytosis�improving
Anemia-stable
Obesity-BMI 44
Obstructive sleep apnea
Conditions present prior to admission:
Hypertension.
Diabetes-type II.
Chronic kidney disease.
Left nephrectomy for renal cell carcinoma in remission.
Diverticulosis.
Obesity.
VITALIY-diagnosed Bvmbuh-Pxdyu-xyiralesb not on CPAP
Fibroids.
Plan
Respiratory status is stable
Supplemental oxygen as needed to keep SpO2 >90-94%; check home O2 assessment prior to discharge
Incentive spirometry encouraged
Nebulizers if needed-currently not bronchospastic
Chest x-ray 07/11/2024-improved basilar opacification suggesting improved pneumonia and pleural effusion, small right pleural effusion
Chest x-ray 07/12/2024-stable, small right pleural effusion slightly increased lower lung opacification.
Chest x-ray 07/14/24-slight improvement opacifications in the right lower lobe
CXR 07/15/2024-Similar appearance of the right lower lung opacity, likely combination of pneumonia with possible small pleural fluid.
Chest tube placed 07/10/2024 by interventional radiology-10 mL of cloudy fluid returned
Chest tube on wall suction -[id number]
Monitor chest tube output--80 mL /first 24-hour, and now 12 mm / 24-hour, 200 mL after TPA/DNase injection
CT chest 07/12/24-decrease in size of loculated small right pleural effusion, left lung is clear.
Chest x-ray 07/13/24-Moderate sized harshly loculated pleural fluid
TPA/DNase instillation occurred 07/12/24-200 mL fluid evacuation.
Considering CXR today shows minimal right-sided plerual effusion and chest tube is draining minimal fluid, decision made between pulmonary service and IR to remove chest tube
Follow radiographically --> repeat CXR tomorrow AM
If need to confirm if any remaining fluid in R-pleural space, then will need to recheck CT Chest
Cultures reviewed
Sputum culture 07/08/2024-few WBCs, many squamous cells, mixed bacterial morphology
Urine Legionella and streptococcal antigens negative
MRSA screen negative
Blood cultures show NGTD
Pleural fluid cultures 07/09/2024-no growth to date
Empiric antibiotics - currently on rocephin
Infectious disease following-correspondence reviewed
Monitor blood sugar with goal BG >100 and <180
Insulin supplementation as needed
Diabetic nurse practitioner following-correspondence reviewed
Follow hemoglobin
Transfuse if needed to keep Hb>7g/dL
DVT prophylaxis-on subcu heparin
Nutrition
Early mobilization.
Reviewed with Dr. Milton
Outpatient pulmonary/sleep disorders evaluation-radiographic follow-up, PFTs, sleep study
Pulmonary service will continue to follow along
Diagnostic data:
Chest x-ray 07/01/2024-right lower lobe pneumonia
Chest x-ray 07/07/2024-stable opacification right lower lobe, consolidation and pleural effusion
Chest x-ray 07/09/2024-no pneumothorax, persistent loculated pleural effusion
CT chest 07/08/2024-right lower lobe consolidation with pneumonia, cardiomegaly, small right pleural effusion
CT head 07/01/2024-no acute intracranial abnormalities, small right frontal scalp soft tissue contusion/hematoma
CT abdomen and pelvis 07/01/2024-right lower lobe consolidation with surrounding effusion, diverticulosis, hepatomegaly
Thoracentesis right side 07/09/2024-successful evacuation of 10 mL of cloudy pleural fluid highly loculated on preprocedure ultrasound
Echocardiogram 07/23-EF 55-60%, aortic sclerosis without stenosis
Total time spent today was 36 minutes for this encounter. Time includes reviewing laboratory test/imaging results, reviewing pertinent medical records, obtaining and reviewing medical history, performing an appropriate exam, ordering medications,
tests and procedures. Time also includes documentation of this encounter, coordinating patient care and communicating with other healthcare professionals. Total time does not include separately billed tests performed on this date of service.
Subjective Data
-
Date of Service:
Date of Service: July 15, 2024
Chief Complaint: Pulmonary Follow Up and Dyspnea Follow Up
Subjective:
Patient seen and evaluated today at bedside. Chest tube has minimal output all day, about 2-3 cc. CXR this morning shows minimal right-sided pleural effusion. Patient feels well, with no shortness of breath at rest, and no chest pain. She does
feel winded when she exerts herself and has a dry cough. Overall she feels much better. She denies VELIZ, nausea, vomiting, fevers or chills. No airleak seen in right-sided chest tube.
Review of Systems
General: Other (Negative unless mentioned above)
Objective Data
Data Reviewed
Vital Signs / I&O / Oxygen:
Vital Signs
Temp Pulse Resp BP Pulse Ox
97.7 F 81 18 112/70 98
07/15/24 15:00 07/15/24 15:00 07/15/24 15:00 07/15/24 15:00 07/15/24 15:00
Intake and Output
07/14/24 07/15/24 07/16/24
06:59 06:59 06:59
Intake Total 480 / 480 1200 / 1200
Output Total
Balance 480 / 480 1190 / 1190
SaO2 98
Physical Exam
General: Respiratory Distress (n), Comfortable, Chills (negative) and Sweats (negative)
HEENT: Normocephalic, Anicteric and Moist Mucous Membranes
Cardiovascular: S1-S2 and Peripheral Edema (negative)
Respiratory: Wheeze (n), Crackles (Right lower lobe), Rhonchi (negative), Non-Labored Respirations, Accessory Resp Muscle Use (n), Stridor (n) and Chest Tube (right posterior hemithorax)
GI: Soft, Non Distended, Non Tender and Normal Bowel Sounds
Neurology: AO x 3 and Tremors (negative)
Skin: Warm, Dry, Cyanosis (n), Jaundice (n) and Rash (n)
Labs/Micro/Reports
Lab Data
07/15/24 06:24
07/15/24 06:24
Microbiology
07/13/24 09:16 Nose MRSA Screen - Final
No Methicillin Resistant Staphylococcus aureus isolated.
07/09/24 11:46 Pleural Fluid Body Fluid Culture - Final
No Growth After 72 Hours
07/09/24 11:46 Pleural Fluid Gram Stain - Final
[2024-07-15 11:00] VITALS: BP 123/59; BP 91/58; PULSE 65; PULSE 91
[2024-07-15 12:40] LABS: Glucose - Point of Care 184 mg/dl (70-99)
[2024-07-15 15:00] VITALS: BP 112/70
--- NOTE | 2024-07-15 15:39 | W.PN.HOSP.TC ---
Today's Communication/Plan
-
see note
Assessment / Plan
Assessment / Plan
CT chest
Right lower lobe consolidation suspicious for pneumonia with small right pleural effusion extending into the major and minor fissures. Cardiomegaly.
CT chest 07/12
There is decreased size of the loculated, small right pleural effusion with fluid in the right minor and major fissures. The posterior approach right pigtail chest tube tip appears within the lateral aspect of the effusion. There is slightly
decreased right basilar opacities, likely due to slightly improving infectious process.
The left lung is clear. No left-sided pleural effusion.

1. Right lower lobe pneumonia complicated with empyema
Sepsis -leukocytosis/Hypotension -POA
-Legionella/strep urine antigen/blood culture negative.
-Patient currently on empiric antibiotic vancomycin/cefepime
-ID following and help appreciated
-CT chest showing right lower lobe rounded consolidation with parapneumonic effusion
-[facility] did a diagnostic thoracentesis with drainage of 10 cc fluid. TWBC 29 k with PMN ~ 85%, ph <6.8, glu < 30. gram stain neg, culture pending.
-Status post right-sided chest tube placement on 07/10. Repeat CT chest findings as above.
-Status post tPA injection intrapleurally, good drainage post lysis , f/u CXR reviewed
-Discussed with IRAD/pulmonology and potentially chest tube will be removed today
-Infectious disease recommended 6 weeks of IV antibiotic course. Will require arrangement.
2. ISAAC on presumed CKD IV
Left nephrectomy with h/o RCC
-Patient creatinine unknown. Admission creatinine of 2.7--> 2.1 today. Per daughter her creatinine was as high as 4 recently so this is improved from her baseline.
-US kidney is normal
-Continue to hold ARB, losartan but can resume upon discharge for nephro protective effect
-no urinary retention issues.
-Avoid nephrotoxic medication
3. Type 2 diabetes mellitus -uncontrolled
-Patient hemoglobin A1c of 12.7
-Managed by primary care physician, in process of seeing endocrinology-will refer as outpatient
-Diabetes nurse pressure helping and help appreciated.
4. Essential hypertension
-Blood pressure control only labetalol. Continue holding losartan.
5. Chronic back pain
Right foot numbness
-Suspected lumbar radiculopathy has diabetic neuropathy is usually symmetric
-CT abdomen pelvis showing did not show any major spinal changes
-Good palpable pulse on lower extremity
6. HLD
- maintain on crestor
7. Orthostatic hypotension
-Continue using compression stockings
Heparin subq
CODE STATUS: Full code
Discussed with pulmonology
Anticipated Discharge: > 48 hours
Subjective/Interval History
-
Date of Service: July 15, 2024
no new problems
denies of having any issues
Objective Data
-
Labs:
Laboratory Results
07/15/24
06:24
WBC 11.6 H
Hgb 11.4 L
Hct 35.8 L
Plt Count 252
Sodium 139
Potassium 4.6
Chloride 99
Carbon Dioxide 28
BUN 57 H
Creatinine 2.1 H
Glucose 191 H
Calcium 9.4
Vital Signs:
Vital Signs
Temp Pulse Resp BP Pulse Ox
97.7 F 81 18 112/70 98
07/15/24 15:00 07/15/24 15:00 07/15/24 15:00 07/15/24 15:00 07/15/24 15:00
I&O
07/14/24 07/15/24 07/16/24
06:59 06:59 06:59
Intake Total 480 / 480 1200 / 1200
Output Total
Balance 480 / 480 1190 / 1190
Review of Systems
-
Respiratory: Reports No Symptoms
Cardiac: Reports No Symptoms
Abdomen/GI: Reports No Symptoms
Physical Exam
-
General: No Apparent Distress and Comfortable
HEENT: Negative Oxygen
Respiratory: Clear to Auscultation and Chest Tubes (Right side - cloudy yellow fluid)
Cardiac: Regular Rhythm and S1/S2; Negative Murmur or Rub
GI: Soft, Nontender and Nondistended
Musculoskeletal: No Edema
Neuro: Awake, Alert, Oriented, No Motor Deficits and Nonfocal/Grossly Intact
Psych: Calm
[2024-07-15 17:07] LABS: Glucose - Point of Care 88 mg/dl (70-99)
[2024-07-15] MEDS: NOVOLOG FLEXPEN-LOW RESISTANCE SC (17:08)
--- NOTE | 2024-07-15 17:15 | W.PN.UPDATE ---
Update Note
Progress Note Update
Saw patient this afternoon, and reviewed her chart. Chest tube has 2-3cc output since this AM and CXR appears stable with minimal right-sided pleural fluid. Discussed case with hospitalist, Dr. Miah Milton as well as IR, Dr. Mahmood. We are all
in agreement that chest tube can be removed. I remove chest tube with sterile gloves, mask, after hand-washing, and there were no immediate complications after chest tube was removed. Chest tube insertion site was cleaned with alcohol and iodine,
and then covered with 4 x 4 gauze + Tegaderm. CXR to be ordered tomorrow morning.
[2024-07-15] MEDS: CRESTOR 40 MG PO (17:20)
[2024-07-15] MEDS: STERILE WATER FOR INJECTION 20 ML IV (17:20)
[2024-07-15] MEDS: ROCEPHIN 2000 MG IV (17:20)
[2024-07-15] MEDS: TYLENOL 650 MG PO (17:52)
[2024-07-15 19:57] VITALS: BP 100/74; BP 132/83; BP 92/59; PULSE 128; PULSE 133; PULSE 137
[2024-07-15 21:17] LABS: Glucose - Point of Care 74 mg/dl (70-99)
[2024-07-15 23:07] VITALS: BP 98/61
[2024-07-16] MEDS: HEPARIN 5000 UNITS SC ×4 (00:07→23:05)
[2024-07-16 07:36] LABS: Glucose - Point of Care 139 mg/dl (70-99)
[2024-07-16] MEDS: NOVOLOG FLEXPEN-LOW RESISTANCE SC ×3 (07:41→17:14)
[2024-07-16 08:01] VITALS: BP 126/73
[2024-07-16 08:02] VITALS: BP 116/83; BP 126/73; PULSE 84; PULSE 88
[2024-07-16] MEDS: WELLBUTRIN SR (12 hour sustained release) 150 MG PO ×2 (08:06→21:21)
[2024-07-16] MEDS: BUMEX 0.5 MG PO (08:06)
[2024-07-16] MEDS: THERAGRAN 1 TABLET PO (08:06)
[2024-07-16] MEDS: ASPIR LOW (ENTERIC COATED) 81 MG PO (08:06)
[2024-07-16] MEDS: TRANDATE 100 MG PO ×2 (08:06→21:16)
[2024-07-16] MEDS: ProAmatine 2.5 MG PO ×3 (08:06→17:44)
[2024-07-16] MEDS: NOVOLOG FLEXPEN 27 UNITS SC ×3 (08:14→17:45)
[2024-07-16] MEDS: LANTUS 0.22 UNITS SC ×2 (08:14→21:15)
--- NOTE | 2024-07-16 09:46 | W.PN.PUL3 ---
Today's Communication / Plan
-
Remove right-sided chest tube on 07/15
Pain control
Up OOB as tolerated
prn DuoNebs
Check CT chest tomorrow AM to assure complete resolution of empyema
Abx as per ID
Pulmonary service will continue to follow along
Assessment
-
69-year-old female with a history of hypertension, diabetes, chronic kidney disease admitted 07/01/2024 with pneumonia and empyema-pulmonary now consulted for pneumonia/empyema 07/10/2024.
Impression:
Bjfrsjrdi-jvxvjsncz-yckqjvae
Empyema-thoracentesis 07/09/2024-WBC 29,000, pH less than 6.8, glucose less than 30, total protein 5.3, LDH 9701-[id number]-tyilpmp s/p chest tube (placed 07/10 --> removed 07/15)
ISAAC superimposed on CKD
Hyperglycemia
Hyperkalemia�resolved
Leukocytosis�improving
Anemia-stable
Obesity-BMI 44
Obstructive sleep apnea
Conditions present prior to admission:
Hypertension.
Diabetes-type II.
Chronic kidney disease.
Left nephrectomy for renal cell carcinoma in remission.
Diverticulosis.
Obesity.
VITALIY-diagnosed Krhwif-Znabq-mjehjuygf not on CPAP
Fibroids.
Plan
Respiratory status is stable
Supplemental oxygen as needed to keep SpO2 >90-94%; SpO2 is 99% on room air at rest; no need for ambulatory pulse oximetry prior to discharge
Incentive spirometry encouraged
Nebulizers if needed-currently not bronchospastic
Chest x-ray 07/11/2024-improved basilar opacification suggesting improved pneumonia and pleural effusion, small right pleural effusion
Chest x-ray 07/12/2024-stable, small right pleural effusion slightly increased lower lung opacification.
Chest x-ray 07/14/24-slight improvement opacifications in the right lower lobe
CXR 07/15/2024-Similar appearance of the right lower lung opacity, likely combination of pneumonia with possible small pleural fluid.
Check CT chest tomorrow to assure complete resolution of right-sided empyema
Chest tube placed 07/10/2024 by interventional radiology-10 mL of cloudy fluid returned --> removed at bedside by Dr. Leonard on 07/15/2024
s/p tPNA/dornse
CT chest 07/12/24-decrease in size of loculated small right pleural effusion, left lung is clear.
Chest x-ray 07/13/24-Moderate sized harshly loculated pleural fluid
TPA/DNase instillation occurred 07/12/24-200 mL fluid evacuation.
Considering CXR from 07/15 that shows minimal right-sided plerual effusion and chest tube is draining minimal fluid, decision made between pulmonary service and IR to remove chest tube
Follow radiographically ---> as stated above, check CT chest tomorrow morning (07/17) to assess for resolution of right-sided empyema
Cultures reviewed
Sputum culture 07/08/2024-few WBCs, many squamous cells, mixed bacterial morphology
Urine Legionella and streptococcal antigens negative
MRSA screen negative
Blood cultures show NGTD
Pleural fluid cultures 07/09/2024-no growth to date
Empiric antibiotics - currently on rocephin
Infectious disease following-correspondence reviewed
Monitor blood sugar with goal BG >100 and <180
Insulin supplementation as needed
Diabetic nurse practitioner following-correspondence reviewed
Follow hemoglobin
Transfuse if needed to keep Hb>7g/dL
DVT prophylaxis-on subcu heparin
Nutrition
Early mobilization.
Reviewed with Dr. Milton
Outpatient pulmonary/sleep disorders evaluation-radiographic follow-up, PFTs, sleep study
Pulmonary service will continue to follow along
Diagnostic data:
Chest x-ray 07/01/2024-right lower lobe pneumonia
Chest x-ray 07/07/2024-stable opacification right lower lobe, consolidation and pleural effusion
Chest x-ray 07/09/2024-no pneumothorax, persistent loculated pleural effusion
CT chest 07/08/2024-right lower lobe consolidation with pneumonia, cardiomegaly, small right pleural effusion
CT head 07/01/2024-no acute intracranial abnormalities, small right frontal scalp soft tissue contusion/hematoma
CT abdomen and pelvis 07/01/2024-right lower lobe consolidation with surrounding effusion, diverticulosis, hepatomegaly
Thoracentesis right side 07/09/2024-successful evacuation of 10 mL of cloudy pleural fluid highly loculated on preprocedure ultrasound
Echocardiogram 07/23-EF 55-60%, aortic sclerosis without stenosis
Total time spent today was 37 minutes for this encounter. Time includes reviewing laboratory test/imaging results, reviewing pertinent medical records, obtaining and reviewing medical history, performing an appropriate exam, ordering medications,
tests and procedures. Time also includes documentation of this encounter, coordinating patient care and communicating with other healthcare professionals. Total time does not include separately billed tests performed on this date of service.
Subjective Data
-
Date of Service:
Date of Service: July 16, 2024
Chief Complaint: Pulmonary Follow Up and Dyspnea Follow Up
Subjective:
Patient seen and evaluated today at bedside. Chest tube removed yesterday at bedside. Currently on room air breathing comfortably. CXR today shows unchanged appearance of right basilar opacity. Afebrile overnight. She feels weak when she moves
around but currently denies SOB at rest, chest pain, VELIZ, nausea, vomiting, fevers or chills.
Review of Systems
General: Other (Negative unless mentioned above)
Objective Data
Data Reviewed
Vital Signs / I&O / Oxygen:
Vital Signs
Temp Pulse Resp BP Pulse Ox
98.0 F 84 18 126/73 97
07/16/24 08:01 07/16/24 08:01 07/16/24 08:01 07/16/24 08:01 07/16/24 08:01
Intake and Output
07/15/24 07/16/24 07/17/24
06:59 06:59 06:59
Intake Total 1200 / 1200 1140 / 1140
Output Total
Balance 1190 / 1190 1140 / 1140
SaO2 97
Physical Exam
General: Respiratory Distress (n), Comfortable, Chills (negative), Sweats (negative) and Good Appetite
HEENT: Normocephalic, Anicteric and Moist Mucous Membranes
Cardiovascular: S1-S2 and Peripheral Edema (+2 lower extremity pitting edema bilaterally)
Respiratory: Wheeze (n), Crackles (RLL-RML lung paris), Rhonchi (negative), Non-Labored Respirations, Accessory Resp Muscle Use (n) and Stridor (n)
GI: Soft, Distended (Abdominal obesity), Non Tender and Normal Bowel Sounds
Neurology: AO x 3 and Tremors (negative)
Skin: Warm, Dry, Cyanosis (n), Jaundice (n) and Rash (n)
Labs/Micro/Reports
Lab Data
07/15/24 06:24
07/15/24 06:24
Microbiology
07/13/24 09:16 Nose MRSA Screen - Final
No Methicillin Resistant Staphylococcus aureus isolated.
[2024-07-16 12:33] LABS: Glucose - Point of Care 126 mg/dl (70-99)
[2024-07-16 12:40] VITALS: BP 119/74
--- NOTE | 2024-07-16 13:57 | W.PN.HOSP.TC ---
Today's Communication/Plan
-
need abx arrangement
Assessment / Plan
Assessment / Plan
CT chest
Right lower lobe consolidation suspicious for pneumonia with small right pleural effusion extending into the major and minor fissures. Cardiomegaly.
CT chest 07/12
There is decreased size of the loculated, small right pleural effusion with fluid in the right minor and major fissures. The posterior approach right pigtail chest tube tip appears within the lateral aspect of the effusion. There is slightly
decreased right basilar opacities, likely due to slightly improving infectious process.
The left lung is clear. No left-sided pleural effusion.

1. Right lower lobe pneumonia complicated with empyema
Sepsis -leukocytosis/Hypotension -POA
-Legionella/strep urine antigen/blood culture negative.
-Patient currently on empiric antibiotic vancomycin/cefepime
-ID following and help appreciated
-CT chest showing right lower lobe rounded consolidation with parapneumonic effusion
-IRAD did a diagnostic thoracentesis with drainage of 10 cc fluid. TWBC 29 k with PMN ~ 85%, ph <6.8, glu < 30. gram stain neg, culture pending.
-Status post right-sided chest tube placement on 07/10. Repeat CT chest findings as above.
-Status post tPA injection intrapleurally, good drainage post lysis , f/u CXR reviewed
-CT tube has been removed.
-Infectious disease recommended 6 weeks of IV antibiotic course. Will require arrangement.
2. ISAAC on presumed CKD IV
Left nephrectomy with h/o RCC
-Patient creatinine unknown. Admission creatinine of 2.7--> 2.1 today. Per daughter her creatinine was as high as 4 recently so this is improved from her baseline.
-US kidney is normal
-Continue to hold ARB, losartan but can resume upon discharge for nephro protective effect
-no urinary retention issues.
-Avoid nephrotoxic medication
3. Type 2 diabetes mellitus -uncontrolled
-Patient hemoglobin A1c of 12.7
-Managed by primary care physician, in process of seeing endocrinology-will refer as outpatient
-Diabetes nurse pressure helping and help appreciated.
4. Essential hypertension
-Blood pressure control only labetalol. Continue holding losartan.
5. Chronic back pain
Right foot numbness
-Suspected lumbar radiculopathy has diabetic neuropathy is usually symmetric
-CT abdomen pelvis showing did not show any major spinal changes
-Good palpable pulse on lower extremity
6. HLD
- maintain on crestor
7. Orthostatic hypotension
-Continue using compression stockings
Heparin subq
CODE STATUS: Full code
Discussed with pulmonology
Anticipated Discharge: 24 - 48 hours
Subjective/Interval History
-
Date of Service: July 16, 2024
Denies of having any problems overnight
no dyspnea/not needing oxygen
Objective Data
-
Vital Signs:
Vital Signs
Temp Pulse Resp BP Pulse Ox
98.0 F 84 18 119/74 97
07/16/24 08:01 07/16/24 08:01 07/16/24 08:01 07/16/24 12:40 07/16/24 08:01
I&O
07/15/24 07/16/24 07/17/24
06:59 06:59 06:59
Intake Total 1200 / 1200 1140 / 1140
Output Total
Balance 1190 / 1190 1140 / 1140
Review of Systems
-
Respiratory: Reports No Symptoms
Cardiac: Reports No Symptoms
Abdomen/GI: Reports No Symptoms
Physical Exam
-
General: No Apparent Distress and Comfortable
HEENT: Negative Oxygen
Respiratory: Clear to Auscultation and Chest Tubes (Right side - cloudy yellow fluid)
Cardiac: Regular Rhythm and S1/S2; Negative Murmur or Rub
GI: Soft, Nontender and Nondistended
Musculoskeletal: No Edema
Neuro: Awake, Alert, Oriented, No Motor Deficits and Nonfocal/Grossly Intact
Psych: Calm
[2024-07-16] MEDS: STERILE WATER FOR INJECTION 20 ML IV (15:44)
[2024-07-16] MEDS: ROCEPHIN 2000 MG IV (15:45)
[2024-07-16 16:00] VITALS: BP 128/62; BP 136/62; PULSE 84; PULSE 88
[2024-07-16 16:01] VITALS: BP 136/62
[2024-07-16 17:06] LABS: Glucose - Point of Care 133 mg/dl (70-99)
[2024-07-16] MEDS: CRESTOR 40 MG PO (17:45)
[2024-07-16 21:13] LABS: Glucose - Point of Care 123 mg/dl (70-99)
[2024-07-16 22:52] VITALS: BP 114/60
[2024-07-17 07:05] VITALS: BP 130/75
[2024-07-17 07:54] LABS: Glucose - Point of Care 151 mg/dl (70-99)
[2024-07-17] MEDS: NOVOLOG FLEXPEN 27 UNITS SC ×3 (08:33→17:11)
[2024-07-17] MEDS: NOVOLOG FLEXPEN-LOW RESISTANCE 1 UNITS SC (08:33)
[2024-07-17] MEDS: HEPARIN 5000 UNITS SC ×2 (08:35→23:48)
[2024-07-17] MEDS: DRISDOL (VITAMIN D2) 50000 UNITS PO (08:35)
[2024-07-17] MEDS: LANTUS 0.22 UNITS SC ×2 (08:35→20:10)
[2024-07-17] MEDS: WELLBUTRIN SR (12 hour sustained release) 150 MG PO ×2 (08:36→20:11)
[2024-07-17] MEDS: ProAmatine 2.5 MG PO ×3 (08:36→17:08)
[2024-07-17] MEDS: BUMEX 0.5 MG PO (08:36)
[2024-07-17] MEDS: ASPIR LOW (ENTERIC COATED) 81 MG PO (08:37)
[2024-07-17] MEDS: TRANDATE 100 MG PO ×2 (08:37→20:11)
[2024-07-17] MEDS: THERAGRAN 1 TABLET PO (08:37)
--- NOTE | 2024-07-17 08:45 | PN.DE.MGMTRT ---
Insulin Management
- -
07/17/2024: Diabetes Management F/U:
69 year old female admitted with Right lower lobe pneumonia. PMH: HTN, Renal cell carcinoma s/p L nephrectomy and T2DM. Pt states was taking Lantus 20 units @ HS and Lispro 15 units AC prior to admission. Has a working meter- [employer] with enough
supplies at home. States her PCP Dr. Stephen Harman recommended she starts seeing [facility] the hospital. Provided her with name of practice and encouraged her to call as soon as she is feeling better. A1C 12.7% Cr 1.7, eGFR 32.26,
glucose on admission was 488 and has consistently remained elevated >200.
Pt awake, alert, oriented, sitting up in chair. Able to discuss diabetes mgt.
Glucose stable and in range, premeal 126 to 139, fasting glucose 151 this AM.
Will continue current regimen Lantus 22 units BID with NovoLog 27 AC and low corrective.
Will follow and make further insulin adjustments if needed.
Pt has a glucose meter and enough supplies at home, she did express interest in CGM, explained process of primary doctor or endo placing order with 2 office notes
Diabetes History
- -
Type of Diabetes: 2 requiring insulin
Pre-Admission Diabetes Regimen
Lab Results
Hemoglobin A1c 12.7 % (4.0-5.6) H 07/02/24 04:32
Insulin Pump Settings
IP Diabetes Regimen
07/16/24 07/16/24 07/16/24
12:32 17:04 21:12
POC Glucose 126 H 133 H 123 H
07/17/24
07:52
POC Glucose 151 H
Meal type: Dinner
Meal type: Lunch
Amount consumed: 100%
Amount consumed: 100%
Patient Education
[2024-07-17 08:50] VITALS: BP 103/71; BP 118/66; BP 124/60; PULSE 87; PULSE 92
--- NOTE | 2024-07-17 09:27 | W.PN.PUL3 ---
Today's Communication / Plan
-
CT reviewed, loculations are improved overall/some residual findings but not enough to re-insert chest tube
Would treat with abx and repeat imaging as OP in 4-6 weeks
Abx for 6 weeks per ID, will need PICC insertion and home set up
Otherwise encouraged further IS, airway clearance, stable on RA
PT/OT
Discharge planning per team
Outpatient FU recommended
Assessment
-
69-year-old female with a history of hypertension, diabetes, chronic kidney disease admitted 07/01/2024 with pneumonia and empyema-pulmonary now consulted for pneumonia/empyema 07/10/2024.
Impression:
Hcgdewzpm-wldaonxfb-bgqbbiik
Empyema-thoracentesis 07/09/2024-WBC 29,000, pH less than 6.8, glucose less than 30, total protein 5.3, LDH 0450-hzjigby-tuhwytg s/p chest tube (placed 07/10 --> removed 07/15)
ISAAC superimposed on CKD
Hyperglycemia
Hyperkalemia�resolved
Leukocytosis�improving
Anemia-stable
Obesity-BMI 44
Obstructive sleep apnea
Conditions present prior to admission:
Hypertension.
Diabetes-type II.
Chronic kidney disease.
Left nephrectomy for renal cell carcinoma in remission.
Diverticulosis.
Obesity.
VITALIY-diagnosed Hhlvme-Hxari-fdnexumei not on CPAP
Fibroids.
Plan
Respiratory status is stable, currently doing well on RA
Incentive spirometry encouraged
Nebulizers if needed-currently not bronchospastic
Chest x-ray 07/11/2024-improved basilar opacification suggesting improved pneumonia and pleural effusion, small right pleural effusion
Chest x-ray 07/12/2024-stable, small right pleural effusion slightly increased lower lung opacification.
Chest x-ray 07/14/24-slight improvement opacifications in the right lower lobe
CXR 07/15/2024-Similar appearance of the right lower lung opacity, likely combination of pneumonia with possible small pleural fluid.
CT chest reviewed showing overall improvement but has some residual consolidation present, this is not significant enough to reinsert chest-tube
I would continue abx and follow with outpatient imaging in 4-6 weeks
Chest tube placed 07/10/2024 by interventional radiology-10 mL of cloudy fluid returned --> d/c 07/15/2024
s/p tPNA/dornse
CT chest 07/12/24-decrease in size of loculated small right pleural effusion, left lung is clear.
Chest x-ray 07/13/24-Moderate sized harshly loculated pleural fluid
TPA/DNase instillation occurred 07/12/24-200 mL fluid evacuation.
Considering CXR from 07/15 that shows minimal right-sided plerual effusion and chest tube is draining minimal fluid, decision made between pulmonary service and IR to remove chest tube
Follow radiographically
Cultures reviewed
Sputum culture 07/08/2024-few WBCs, many squamous cells, mixed bacterial morphology
Urine Legionella and streptococcal antigens negative
MRSA screen negative
Blood cultures show NGTD
Pleural fluid cultures 07/09/2024-no growth to date
Empiric antibiotics - currently on rocephin
Infectious disease following-correspondence reviewed/likely to need 6 week course
PICC line arrangement for d/c planning
Monitor blood sugar with goal BG >100 and <180
Insulin supplementation as needed
Diabetic nurse practitioner following-correspondence reviewed
Follow hemoglobin
Transfuse if needed to keep Hb>7g/dL
DVT prophylaxis-on subcu heparin
Nutrition
Early mobilization.
Outpatient pulmonary/sleep disorders evaluation-radiographic follow-up, PFTs, sleep study
Consideration for d/c planning post PICC placement
Diagnostic data:
Chest x-ray 07/01/2024-right lower lobe pneumonia
Chest x-ray 07/07/2024-stable opacification right lower lobe, consolidation and pleural effusion
Chest x-ray 07/09/2024-no pneumothorax, persistent loculated pleural effusion
CT chest 07/08/2024-right lower lobe consolidation with pneumonia, cardiomegaly, small right pleural effusion
CT head 07/01/2024-no acute intracranial abnormalities, small right frontal scalp soft tissue contusion/hematoma
CT abdomen and pelvis 07/01/2024-right lower lobe consolidation with surrounding effusion, diverticulosis, hepatomegaly
Thoracentesis right side 07/09/2024-successful evacuation of 10 mL of cloudy pleural fluid highly loculated on preprocedure ultrasound
Echocardiogram 07/23-EF 55-60%, aortic sclerosis without stenosis
-----
Total time spent today was 50 minutes for this encounter. Time includes reviewing laboratory test/imaging results, reviewing pertinent medical records, obtaining and reviewing medical history, performing an appropriate exam, ordering medications,
tests and procedures. Time also includes documentation of this encounter, coordinating patient care and communicating with other healthcare professionals. Total time does not include separately billed tests performed on this date of service.
Subjective Data
-
Date of Service:
Date of Service: July 17, 2024
Chief Complaint: Pulmonary Follow Up and Dyspnea Follow Up
Subjective:
Doing well today, remains stable on RA
No new complaints
Feels her initial complaints are improving
Sitting in chair
Objective Data
Data Reviewed
Vital Signs / I&O / Oxygen:
Vital Signs
Temp Pulse Resp BP Pulse Ox
97.7 F 83 20 130/75 97
07/17/24 07:05 07/17/24 07:05 07/17/24 07:05 07/17/24 07:05 07/17/24 07:05
Intake and Output
07/16/24 07/17/24 07/18/24
06:59 06:59 06:59
Intake Total 1140 / 1140 1080 / 1080
Balance 1140 / 1140 1080 / 1080
SaO2 97
Physical Exam
General: Respiratory Distress (n), Comfortable, Chills (negative), Sweats (negative) and Good Appetite
HEENT: Normocephalic, Anicteric and Moist Mucous Membranes
Cardiovascular: S1-S2, Regular Rhythm and Peripheral Edema (+2 lower extremity pitting edema bilaterally)
Respiratory: Clear, Wheeze (n), Rhonchi (negative), Non-Labored Respirations, Accessory Resp Muscle Use (n) and Stridor (n)
GI: Soft, Distended (Abdominal obesity), Non Tender and Normal Bowel Sounds
Neurology: AO x 3, No Motor Deficits and Tremors (negative)
Skin: Warm, Dry, Cyanosis (n), Jaundice (n) and Rash (n)
Labs/Micro/Reports
Lab Data
07/15/24 06:24
07/15/24 06:24
Microbiology
07/13/24 09:16 Nose MRSA Screen - Final
No Methicillin Resistant Staphylococcus aureus isolated.
[2024-07-17 10:17] LABS: Hematocrit 33.7 % (37.0-47.0); Hemoglobin 10.4 g/dL (12.0-16.0); Mean Corp Hgb Conc. 30.9 g/dL (33.0-37.0); Mean Corpuscular Hgb 26.8 pg (27.0-31.0); Mean Corpuscular Volume 86.9 fL (81.0-99.0); Mean Platelet Volume 8.8 fL (7.4-10.4); Platelet Count 227 10^3/uL (130-400); Red Blood Cell Count 3.88 10^6/uL (4.20-5.40); Red Cell Dist. Width 16.1 % (11.5-14.5); White Blood Cell Count 10.1 10^3/uL (4.8-10.8)
[2024-07-17 11:37] LABS: Blood Urea Nitrogen 53 mg/dl (7-17); Carbon Dioxide 31 mmol/L (22-30); Chloride 99 mmol/L (98-107); Estimated Creatinine Clearance 36 ml/min; Glucose 113 mg/dl (70-99); Potassium 4.2 mmol/L (3.5-5.1); Sodium 140 mmol/L (135-145); eGFR 30.12
[2024-07-17 11:43] LABS: Glucose - Point of Care 125 mg/dl (70-99)
[2024-07-17] MEDS: NOVOLOG FLEXPEN-LOW RESISTANCE SC ×2 (12:22→17:12)
--- NOTE | 2024-07-17 14:34 | CM ---
night shift manager reviewed patient's chart and met with patient and patient was provided with the cost of medication, per [facility] cost of medication is $161.23 per week, this information was provided to patient who stated that she wanted to talk to
ID, egg caser reviewed outpatient infusion room and skilled placement as alternative options. Referral was sent to [facility] visiting nurses.
Plan; Home with IV abx, referral sent to [facility] and [facility].
[facility]
[phone]
--- NOTE | 2024-07-17 15:13 | W.PN.HOSP.TC ---
Today's Communication/Plan
-
d/c planning
see note
Assessment / Plan
Assessment / Plan
CT chest
Right lower lobe consolidation suspicious for pneumonia with small right pleural effusion extending into the major and minor fissures. Cardiomegaly.
CT chest 07/12
There is decreased size of the loculated, small right pleural effusion with fluid in the right minor and major fissures. The posterior approach right pigtail chest tube tip appears within the lateral aspect of the effusion. There is slightly
decreased right basilar opacities, likely due to slightly improving infectious process.
The left lung is clear. No left-sided pleural effusion.
CT chest 07/17
1. Small volume residual right pleural fluid as above, navicular improved as compared with prior. Residual partial atelectasis of the right lower lobe, also improved as compared with prior.
2. Very low lung volumes. Diffuse interstitial and groundglass opacities likely primarily related to hypoaeration atelectasis.
3. Coronary and aortic atherosclerosis. Aneurysmal dilation ascending aorta, 4.5 cm diameter.

1. Right lower lobe pneumonia complicated with empyema
Sepsis -leukocytosis/Hypotension -POA
Pneumothorax ex vacuo
-Legionella/strep urine antigen/blood culture negative.
-Patient currently on empiric antibiotic vancomycin/cefepime
-ID following and help appreciated
-CT chest showing right lower lobe rounded consolidation with parapneumonic effusion
-IRAD did a diagnostic thoracentesis with drainage of 10 cc fluid. TWBC 29 k with PMN ~ 85%, ph <6.8, glu < 30. gram stain neg, culture pending.
-Status post right-sided chest tube placement on 07/10. Repeat CT chest findings as above.
-Status post tPA injection intrapleurally, good drainage post lysis , f/u CXR reviewed
-CT tube has been removed.
-Repeat chest CT showing small pneumothorax ex vacuo at right lower lobe
-Home infusion set up because probated for patient, discussed with ID for possible alternative of oral abx therapy if clinically appropriate.
2. ISAAC on presumed CKD IV
Left nephrectomy with h/o RCC
-Patient creatinine unknown. Admission creatinine of 2.7--> 1.8 today.
-Per daughter her creatinine was as high as 4 recently so this is improved from her baseline.
-US kidney is normal.
-no urinary retention issues.
-Avoid nephrotoxic medication
-Losartan remains on hold
3. Type 2 diabetes mellitus -uncontrolled
-Patient hemoglobin A1c of 12.7
-Managed by primary care physician, in process of seeing endocrinology-will refer as outpatient
-Diabetes nurse pressure helping and help appreciated.
4. Essential hypertension
-Blood pressure control only labetalol. Continue holding losartan.
5. Chronic back pain
Right foot numbness
-Suspected lumbar radiculopathy has diabetic neuropathy is usually symmetric
-CT abdomen pelvis showing did not show any major spinal changes
-Good palpable pulse on lower extremity
6. HLD
- maintain on crestor
7. Orthostatic hypotension
-Continue using compression stockings
Heparin subq
CODE STATUS: Full code
Anticipated Discharge: Within 24 hours
Subjective/Interval History
-
Date of Service: July 17, 2024
Clinically feeling better
Some right-sided discomfort
Objective Data
-
Labs:
Laboratory Results
07/17/24
09:54
WBC 10.1
Hgb 10.4 L
Hct 33.7 L
Plt Count 227
Sodium 140
Potassium 4.2
Chloride 99
Carbon Dioxide 31 H
BUN 53 H
Creatinine 1.8 H
Glucose 113 H
Calcium 9.0
Vital Signs:
Vital Signs
Temp Pulse Resp BP Pulse Ox
97.7 F 83 20 130/75 97
07/17/24 07:05 07/17/24 07:05 07/17/24 07:05 07/17/24 07:05 07/17/24 08:35
I&O
07/16/24 07/17/24 07/18/24
06:59 06:59 06:59
Intake Total 1140 / 1140 1080 / 1080
Balance 1140 / 1140 1080 / 1080
Review of Systems
-
Respiratory: Reports Pleurisy
Cardiac: Reports No Symptoms
Abdomen/GI: Reports No Symptoms
Physical Exam
-
General: No Apparent Distress and Comfortable
HEENT: Negative Oxygen
Respiratory: Clear to Auscultation
Cardiac: Regular Rhythm and S1/S2; Negative Murmur or Rub
GI: Soft, Nontender and Nondistended
Musculoskeletal: No Edema
Neuro: Awake, Alert, Oriented, No Motor Deficits and Nonfocal/Grossly Intact
Psych: Calm
[2024-07-17 15:39] VITALS: BP 128/74
[2024-07-17] MEDS: ROCEPHIN 2000 MG IV (16:14)
[2024-07-17] MEDS: STERILE WATER FOR INJECTION 20 ML IV (16:14)
[2024-07-17] MEDS: HEPARIN SC (16:14)
[2024-07-17 16:34] LABS: Glucose - Point of Care 135 mg/dl (70-99)
[2024-07-17] MEDS: CRESTOR 40 MG PO (17:08)
[2024-07-17 20:09] LABS: Glucose - Point of Care 103 mg/dl (70-99)
[2024-07-17 22:49] VITALS: BP 110/62; BP 114/82; BP 130/66; PULSE 86; PULSE 89; PULSE 91
[2024-07-17 22:50] VITALS: BP 130/66
[2024-07-18 07:17] LABS: Glucose - Point of Care 149 mg/dl (70-99)
[2024-07-18] MEDS: ASPIR LOW (ENTERIC COATED) 81 MG PO (07:17)
[2024-07-18] MEDS: THERAGRAN 1 TABLET PO (07:17)
[2024-07-18] MEDS: BUMEX 0.5 MG PO (07:17)
[2024-07-18] MEDS: TRANDATE 100 MG PO ×2 (07:17→20:12)
[2024-07-18] MEDS: WELLBUTRIN SR (12 hour sustained release) 150 MG PO ×2 (07:17→20:15)
[2024-07-18] MEDS: HEPARIN 5000 UNITS SC ×3 (07:18→22:53)
[2024-07-18] MEDS: ProAmatine 2.5 MG PO ×3 (07:18→16:47)
[2024-07-18] MEDS: LANTUS 0.22 UNITS SC ×2 (07:19→20:16)
[2024-07-18] MEDS: NOVOLOG FLEXPEN-LOW RESISTANCE SC ×2 (07:19→16:52)
[2024-07-18] MEDS: NOVOLOG FLEXPEN 27 UNITS SC ×3 (07:19→16:52)
[2024-07-18 07:51] VITALS: BP 115/68
--- NOTE | 2024-07-18 08:48 | CM ---
Addendum entered by Jovanna Chan 07/18/24 16:19:
Per physician plan is for discharge home tomorrow. CM updated Serena from [facility].
Addendum entered by Jovanna Chan 07/18/24 10:22:
IF patient is discharged with [facility] to follow please fax discharge summary and transition of care to [phone].
Original Note:
Patient daughter called with questions. CM provided information about [facility] home health and [facility], patient doctor requested to call daughterSelene. CM will continue to follow for discharge planning needs.
Plan; home with [facility] and [facility]
[2024-07-18 09:12] VITALS: BP 101/61; BP 109/66; BP 117/64; PULSE 84; PULSE 86; PULSE 87
--- NOTE | 2024-07-18 09:17 | W.PN.PUL3 ---
Today's Communication / Plan
-
Doing well, stable on RA, no new complaints
Repeat imaging PRN
PICC placement and home IV abx set up per team
Follow up ID recs
OP FU recommended
Discharge planning per team
We will sign off at this time, please call with questions
Assessment
-
69-year-old female with a history of hypertension, diabetes, chronic kidney disease admitted 07/01/2024 with pneumonia and empyema-pulmonary now consulted for pneumonia/empyema 07/10/2024.
Impression:
Savebgyjw-txtdatkxd-uczyhtto
Empyema-thoracentesis 07/09/2024-WBC 29,000, pH less than 6.8, glucose less than 30, total protein 5.3, LDH 6764-adizdxe-qahccdg s/p chest tube (placed 07/10 --> removed 07/15)
ISAAC superimposed on CKD
Hyperglycemia
Hyperkalemia�resolved
Leukocytosis�improving
Anemia-stable
Obesity-BMI 44
Obstructive sleep apnea
Conditions present prior to admission:
Hypertension.
Diabetes-type II.
Chronic kidney disease.
Left nephrectomy for renal cell carcinoma in remission.
Diverticulosis.
Obesity.
VITALIY-diagnosed Lgvklp-Ztezt-bxakwxrwz not on CPAP
Fibroids.
Plan
Respiratory status is stable, currently doing well on RA
Incentive spirometry encouraged
Nebulizers if needed-currently not bronchospastic
Chest x-ray 07/11/2024-improved basilar opacification suggesting improved pneumonia and pleural effusion, small right pleural effusion
Chest x-ray 07/12/2024-stable, small right pleural effusion slightly increased lower lung opacification.
Chest x-ray 07/14/24-slight improvement opacifications in the right lower lobe
CXR 07/15/2024-Similar appearance of the right lower lung opacity, likely combination of pneumonia with possible small pleural fluid.
CT chest reviewed showing overall improvement but has some residual consolidation present, this is not significant enough to reinsert chest-tube
I would continue abx and follow with outpatient imaging in 4-6 weeks
Chest tube placed 07/10/2024 by interventional radiology-10 mL of cloudy fluid returned --> d/c 07/15/2024
s/p tPNA/dornse
CT chest 07/12/24-decrease in size of loculated small right pleural effusion, left lung is clear.
Chest x-ray 07/13/24-Moderate sized harshly loculated pleural fluid
TPA/DNase instillation occurred 07/12/24-200 mL fluid evacuation.
Considering CXR from 07/15 that shows minimal right-sided plerual effusion and chest tube is draining minimal fluid, decision made between pulmonary service and IR to remove chest tube
Follow radiographically
Cultures reviewed
Sputum culture 07/08/2024-few WBCs, many squamous cells, mixed bacterial morphology
Urine Legionella and streptococcal antigens negative
MRSA screen negative
Blood cultures show NGTD
Pleural fluid cultures 07/09/2024-no growth to date
Empiric antibiotics - currently on rocephin
Infectious disease following-correspondence reviewed/likely to need 6 week course
PICC line arrangement for d/c planning
Monitor blood sugar with goal BG >100 and <180
Insulin supplementation as needed
Diabetic nurse practitioner following-correspondence reviewed
Follow hemoglobin
Transfuse if needed to keep Hb>7g/dL
DVT prophylaxis-on subcu heparin
Nutrition
Early mobilization.
Outpatient pulmonary/sleep disorders evaluation-radiographic follow-up, PFTs, sleep study
Consideration for d/c planning post PICC placement
Diagnostic data:
Chest x-ray 07/01/2024-right lower lobe pneumonia
Chest x-ray 07/07/2024-stable opacification right lower lobe, consolidation and pleural effusion
Chest x-ray 07/09/2024-no pneumothorax, persistent loculated pleural effusion
CT chest 07/08/2024-right lower lobe consolidation with pneumonia, cardiomegaly, small right pleural effusion
CT head 07/01/2024-no acute intracranial abnormalities, small right frontal scalp soft tissue contusion/hematoma
CT abdomen and pelvis 07/01/2024-right lower lobe consolidation with surrounding effusion, diverticulosis, hepatomegaly
Thoracentesis right side 07/09/2024-successful evacuation of 10 mL of cloudy pleural fluid highly loculated on preprocedure ultrasound
Echocardiogram 07/23-EF 55-60%, aortic sclerosis without stenosis
-----
Total time spent today was 37 minutes for this encounter. Time includes reviewing laboratory test/imaging results, reviewing pertinent medical records, obtaining and reviewing medical history, performing an appropriate exam, ordering medications,
tests and procedures. Time also includes documentation of this encounter, coordinating patient care and communicating with other healthcare professionals. Total time does not include separately billed tests performed on this date of service.
Subjective Data
-
Date of Service:
Date of Service: July 18, 2024
Chief Complaint: Pulmonary Follow Up and Dyspnea Follow Up
Subjective:
No new events, stable on RA
Cough is stable, no new complaints
Wants to go home
Objective Data
Data Reviewed
Vital Signs / I&O / Oxygen:
Vital Signs
Temp Pulse Resp BP Pulse Ox
97.6 F 87 20 115/68 94
07/18/24 07:51 07/18/24 07:51 07/18/24 07:51 07/18/24 07:51 07/18/24 07:51
Intake and Output
07/17/24 07/18/24 07/19/24
06:59 06:59 06:59
Intake Total 1080 / 1080 1200 / 1200
Balance 1080 / 1080 1200 / 1200
SaO2 94
Physical Exam
General: Respiratory Distress (n), Comfortable, Chills (negative), Sweats (negative) and Good Appetite
HEENT: Normocephalic, Anicteric and Moist Mucous Membranes
Cardiovascular: S1-S2, Regular Rhythm and Peripheral Edema (+2 lower extremity pitting edema bilaterally)
Respiratory: Clear, Wheeze (n), Rhonchi (negative), Non-Labored Respirations, Accessory Resp Muscle Use (n) and Stridor (n)
GI: Soft, Distended (Abdominal obesity), Non Tender and Normal Bowel Sounds
Neurology: AO x 3, No Motor Deficits and Tremors (negative)
Skin: Warm, Dry, Cyanosis (n), Jaundice (n) and Rash (n)
Labs/Micro/Reports
Lab Data
07/17/24 09:54
07/17/24 09:54
--- NOTE | 2024-07-18 09:17 | PN.DE.MGMTRT ---
Insulin Management
- -
07/18/2024: Diabetes Management Follow up:
69 year old female admitted with Right lower lobe pneumonia. PMH: HTN, Renal cell carcinoma s/p L nephrectomy and T2DM. Pt states was taking Lantus 20 units @ HS and Lispro 15 units AC prior to admission. Has a working meter- OneTouch with enough
supplies at home. States her PCP Dr. Stephen Harman recommended she starts seeing the [facility] next to the hospital. Provided her with name of practice and encouraged her to call as soon as she is feeling better. A1C 12.7% Cr 1.7, eGFR 32.26,
glucose on admission was 488 and has consistently remained elevated >200.
Pt awake, alert, oriented, sitting up in chair. Able to discuss diabetes mgt.
07/17 Glucose stable and in range, premeal 103 to 151, fasting glucose 149 this AM.
07/18 Will continue current regimen Lantus 22 units BID with NovoLog 27 AC and low corrective.
Will follow and make further insulin adjustments if needed.
Discussed with nurse.
Pt has a glucose meter and enough supplies at home, she did express interest in CGM, explained process of primary doctor or endo placing order with 2 office notes
Diabetes History
- -
Type of Diabetes: 2 requiring insulin
Pre-Admission Diabetes Regimen
07/17/24
09:54
Creatinine 1.8 H
Lab Results
Hemoglobin A1c 12.7 % (4.0-5.6) H 07/02/24 04:32
Insulin Pump Settings
IP Diabetes Regimen
07/17/24 07/17/24 07/17/24
09:54 11:41 16:33
Glucose 113 H
POC Glucose 125 H 135 H
07/17/24 07/18/24
20:08 07:16
Glucose
POC Glucose 103 H 149 H
Meal type: Lunch
Meal type: Breakfast
Amount consumed: 100%
Amount consumed: 100%
Patient Education
[2024-07-18 11:44] LABS: Glucose - Point of Care 155 mg/dl (70-99)
[2024-07-18] MEDS: NOVOLOG FLEXPEN-LOW RESISTANCE 1 UNITS SC (12:02)
--- NOTE | 2024-07-18 14:45 | W.PN.HOSP.TC ---
Today's Communication/Plan
-
see note
d/c planning for next 24-48hrs
Assessment / Plan
Assessment / Plan
CT chest
Right lower lobe consolidation suspicious for pneumonia with small right pleural effusion extending into the major and minor fissures. Cardiomegaly.
CT chest 07/12
There is decreased size of the loculated, small right pleural effusion with fluid in the right minor and major fissures. The posterior approach right pigtail chest tube tip appears within the lateral aspect of the effusion. There is slightly
decreased right basilar opacities, likely due to slightly improving infectious process.
The left lung is clear. No left-sided pleural effusion.
CT chest 07/17
1. Small volume residual right pleural fluid as above, navicular improved as compared with prior. Residual partial atelectasis of the right lower lobe, also improved as compared with prior.
2. Very low lung volumes. Diffuse interstitial and groundglass opacities likely primarily related to hypoaeration atelectasis.
3. Coronary and aortic atherosclerosis. Aneurysmal dilation ascending aorta, 4.5 cm diameter.

1. Right lower lobe pneumonia complicated with empyema
Sepsis -leukocytosis/Hypotension -POA
Pneumothorax ex vacuo
-Legionella/strep urine antigen/blood culture negative.
-Patient currently on empiric antibiotic vancomycin/cefepime
-ID following and help appreciated
-CT chest showing right lower lobe rounded consolidation with parapneumonic effusion
-IRAD did a diagnostic thoracentesis with drainage of 10 cc fluid. TWBC 29 k with PMN ~ 85%, ph <6.8, glu < 30. gram stain neg, culture pending.
-Status post right-sided chest tube placement on 07/10. Repeat CT chest findings as above.
-Status post tPA injection intrapleurally, good drainage post lysis , f/u CXR reviewed
-CT tube has been removed.
-Repeat chest CT showing small pneumothorax ex vacuo at right lower lobe
-ID discussed with patient and plan for 1 more week of IV antibiotic (due to cost reason) followed by Omnicef oral antibiotic course
2. ISAAC on presumed CKD IV
Left nephrectomy with h/o RCC
-Patient creatinine unknown. Admission creatinine of 2.7--> 1.8 today.
-Per daughter her creatinine was as high as 4 recently so this is improved from her baseline.
-US kidney is normal.
-no urinary retention issues.
-Avoid nephrotoxic medication
-Losartan remains on hold, BP controlled.
3. Type 2 diabetes mellitus -uncontrolled
-Patient hemoglobin A1c of 12.7
-Managed by primary care physician, in process of seeing endocrinology-will refer as outpatient
-Diabetes nurse pressure helping and help appreciated.
-Daughter requested to discuss the insulin medication regimen with patient as noncompliant at times
4. Essential hypertension
-Blood pressure control only labetalol. Continue holding losartan.
5. Chronic back pain
Right foot numbness
-Suspected lumbar radiculopathy has diabetic neuropathy is usually symmetric
-CT abdomen pelvis showing did not show any major spinal changes
-Good palpable pulse on lower extremity
6. HLD
- maintain on crestor
7. Orthostatic hypotension
-Continue using compression stockings
8. Lower extremity edema
Venous stasis dermatitis
-Significant lower extremity edema. Already on Bumex half a milligram
-Lower extremity venous Doppler negative. Erythema from venous congestion and not cellulitis.
-provide IV bumex 1mg x1
-Put patient on Jasper wrap/leg elevation while in bed
Heparin subq
CODE STATUS: Full code
Anticipated Discharge: Within 24 hours
Subjective/Interval History
-
Date of Service: July 18, 2024
Resting comfortably in chair
Denies of having any issues overnight
Objective Data
-
Vital Signs:
Vital Signs
Temp Pulse Resp BP Pulse Ox
97.6 F 87 20 115/68 94
07/18/24 07:51 07/18/24 07:51 07/18/24 07:51 07/18/24 07:51 07/18/24 07:51
I&O
07/17/24 07/18/24 07/19/24
06:59 06:59 06:59
Intake Total 1080 / 1080 1200 / 1200
Balance 1080 / 1080 1200 / 1200
Review of Systems
-
Respiratory: Reports No Symptoms
Cardiac: Reports No Symptoms
Abdomen/GI: Reports No Symptoms
Physical Exam
-
General: No Apparent Distress and Comfortable
HEENT: Negative Oxygen
Respiratory: Clear to Auscultation
Cardiac: Regular Rhythm and S1/S2; Negative Murmur or Rub
GI: Soft, Nontender and Nondistended
Musculoskeletal: Edema, Right Lower Extrem and Edema, Left Lower Extrem
Neuro: Awake, Alert, Oriented, No Motor Deficits and Nonfocal/Grossly Intact
Psych: Calm
[2024-07-18] MEDS: STERILE WATER FOR INJECTION 20 ML IV (14:51)
[2024-07-18] MEDS: ROCEPHIN 2000 MG IV (14:52)
[2024-07-18] MEDS: BUMEX 1 MG IV (14:52)
[2024-07-18 15:00] VITALS: BP 132/66
[2024-07-18] MEDS: CRESTOR 40 MG PO (16:48)
[2024-07-18 16:51] LABS: Glucose - Point of Care 81 mg/dl (70-99)
--- NOTE | 2024-07-18 17:01 | W.PN.ID1 ---
Date of Service
Date of Service: July 18, 2024
Today's Communication
Continue antibiotics.
Assessment / Plan
Right lower lobe pneumonia (CAP)
Parapneumonic effusion
- s/p chest tube
Leukocytosis
- improved
Reported fever
-Remains afebrile at present.
CKD
Hx HTN
Hx RCC
Recommendations:
Currently d#18 abx.
Continue ceftriaxone. Will need to complete a 6-week course of antibiotics. Given prior negative cultures, and overall significant improvement, would like to complete at least 3 weeks of IV antibiotics, with subsequent transition to an oral
regimen; likely cefdinir to finish out the 6-week course.
Additionally, patient notes that there may be a financial barrier to completing a full 6-week course of IV antibiotics, but is amenable to an additional week.
Home antibiotic infusion sheet placed on paper chart.
Monitor white count temperature curve.
PICC line placement once home infusion set up.
Will follow-up in the outpatient setting.
����������������������������������������������������������
Chief Complaint
-: Pneumonia and Other (Parapneumonic effusion)
Subjective / Review of Systems
Review of Systems: No Fever, No Chills and Cough (Markedly improved from admission)
Vital Signs / Physical Exam
Vital Signs
Vital Signs
Temp Pulse Resp BP Pulse Ox
97.9 F 86 20 132/66 95
07/18/24 15:00 07/18/24 15:00 07/18/24 15:00 07/18/24 15:00 07/18/24 15:00
Physical Exam
Constitutional: No Acute Distress and Comfortable
Head: Normocephalic
Eyes: Sclera Anicteric
Cardiovascular: Regular Rate and S1/S2
Pulmonary: Coarse and Non Labored
Gastrointestinal: Soft, Non Tender and Non Distended
Extremities: Negative Cyanosis or Erythema
Skin: Warm and Dry
Neurological: Awake, Alert and Oriented
Psychological: Calm
Objective Data
Lab Data
Lab Results
07/17/24 09:54
07/17/24 09:54
Estimated Creat Clear 36 ml/min 07/17/24 09:54
Lactic Acid Cancelled 07/09/24 10:46
Total Bilirubin 0.7 mg/dl (0.2-1.3) 07/02/24 04:32
AST 28 U/L (14-36) 07/02/24 04:32
ALT 29 U/L (0-35) 07/02/24 04:32
Alkaline Phosphatase 92 U/L (38-126) 07/02/24 04:32
Most recent labs reviewed.
Micro Results:
07/13/24 09:16 MRSA Screen - Final
Nose No Methicillin Resistant Staphylococcus aureus isolated.
07/09/24 11:46 Body Fluid Culture - Final
Pleural Fluid No Growth After 72 Hours
Gram Stain - Final
07/08/24 15:20 Respiratory Culture - Final
Sputum Gram Stain - Final
07/01/24 15:51 Blood Culture - Final
Blood/Venous No Growth - Final Report
07/01/24 15:51 Blood Culture - Final
Blood/Venous No Growth - Final Report
07/05/24 15:01 Legionella Urinary Antigen - Final
Urine Negative for Legionella pneumophila Serogroup 1 antigen.
A negative result does not rule out the possiblity of
Legionella infection due to other serogroups or species of
Legionella. Clinical correlation is recommended.
Streptococcus pneumoniae Antigen (M - Final
Negative for Streptococcus pneumoniae antigen.
A negative result does not exclude infection with
Streptococcus pneumoniae. Clinical correlation is
recommended.
07/01/24 15:22 Urine Culture - Final
Urine
07/02/24 04:32 MRSA Screen - Final
Nose No Methicillin Resistant Staphylococcus aureus isolated.
Imaging:
07/03/2024 CXR (2 view): Evaluation is limited by patient body habitus. Low lung volumes noted. A right basilar opacification/infiltrate is noted, and appears to have progressed from prior imaging on 07/01/2024.
07/01/2024 CT abdomen/pelvis without contrast: A right lower lobe consolidation with surrounding effusion is suspicious for PNA with parapneumonic effusion. No evidence of acute traumatic injury to the abdomen.
Care Review
Plan reviewed with: Physician (Hospitalist)
[2024-07-18 20:12] LABS: Glucose - Point of Care 138 mg/dl (70-99)
[2024-07-18 21:24] LABS: Glucose - Point of Care 118 mg/dl (70-99)
[2024-07-18] MEDS: TYLENOL 650 MG PO (22:49)
[2024-07-18 23:17] VITALS: BP 122/68
[2024-07-19 07:04] VITALS: BP 114/66
[2024-07-19 07:13] LABS: Glucose - Point of Care 185 mg/dl (70-99)
--- NOTE | 2024-07-19 08:40 | PN.DE.MGMTRT ---
Insulin Management
- -
07/19/2024: Diabetes Management Follow up:
69 year old female admitted with Right lower lobe pneumonia. PMH: HTN, Renal cell carcinoma s/p L nephrectomy and T2DM. Pt states was taking Lantus 20 units @ HS and Lispro 15 units AC prior to admission. Has a working meter- OneTouch with enough
supplies at home. States her PCP Dr. tSephen Harman recommended she starts seeing the Endocrine group next to the hospital. Provided her with name of practice and encouraged her to call as soon as she is feeling better. A1C 12.7% Cr 1.7, eGFR 32.26,
glucose on admission was 488 and has consistently remained elevated >200.
Pt awake, alert, oriented, sitting up in chair. Able to discuss diabetes mgt.
07/18 Glucose range yesterday 103 to 151. Will continue current regimen Lantus 22 units BID with NovoLog 27 AC and low corrective.
07/19 Glucose remains stable, range yesterday 81 to 155. Will continue current regimen 22 units lantus BID with novolog 27 units AC breakfast and dinner and 25 units with lunch.
Will follow and make further insulin adjustments if needed.
Discussed with nurse.
Pt has a glucose meter and enough supplies at home, she did express interest in CGM, explained process of primary doctor or endo placing order with 2 office notes
Diabetes History
- -
Type of Diabetes: 2 requiring insulin
Pre-Admission Diabetes Regimen
Lab Results
Hemoglobin A1c 12.7 % (4.0-5.6) H 07/02/24 04:32
Insulin Pump Settings
IP Diabetes Regimen
07/18/24 07/18/24 07/18/24
11:42 16:50 20:10
POC Glucose 155 H 81 138 H
07/18/24 07/19/24
21:22 07:12
POC Glucose 118 H 185 H
Meal type: Lunch
Meal type: Breakfast
Amount consumed: 100%
Amount consumed: 100%
Patient Education
[2024-07-19 09:10] LABS: Blood Urea Nitrogen 45 mg/dl (7-17); Calcium 8.9 mg/dl (8.4-10.2); Carbon Dioxide 28 mmol/L (22-30); Chloride 101 mmol/L (98-107); Estimated Creatinine Clearance 40 ml/min; Glucose 148 mg/dl (70-99); Potassium 4.3 mmol/L (3.5-5.1); Sodium 143 mmol/L (135-145)
[2024-07-19] MEDS: NOVOLOG FLEXPEN-LOW RESISTANCE 1 UNITS SC (09:43)
[2024-07-19] MEDS: NOVOLOG FLEXPEN 27 UNITS SC (09:44)
[2024-07-19] MEDS: ASPIR LOW (ENTERIC COATED) 81 MG PO (09:45)
[2024-07-19] MEDS: TRANDATE 100 MG PO (09:45)
[2024-07-19] MEDS: WELLBUTRIN SR (12 hour sustained release) 150 MG PO (09:45)
[2024-07-19] MEDS: THERAGRAN 1 TABLET PO (09:48)
[2024-07-19] MEDS: ProAmatine 2.5 MG PO ×2 (09:49→12:46)
[2024-07-19] MEDS: LANTUS 0.22 UNITS SC (09:49)
[2024-07-19] MEDS: HEPARIN 5000 UNITS SC (09:50)
[2024-07-19] MEDS: BUMEX 0.5 MG PO (09:51)
[2024-07-19] MEDS: TYLENOL 650 MG PO (09:54)
[2024-07-19 11:28] LABS: Glucose - Point of Care 216 mg/dl (70-99)
[2024-07-19 11:55] VITALS: BP 102/55; BP 113/77; BP 118/63; PULSE 88; PULSE 98
[2024-07-19 12:03] VITALS: BMI 43.2
[2024-07-19] MEDS: NOVOLOG FLEXPEN-LOW RESISTANCE 2 UNITS SC (12:44)
[2024-07-19] MEDS: NOVOLOG FLEXPEN 25 UNITS SC (12:45)
--- NOTE | 2024-07-19 12:50 | CM ---
Chart reviewed and mid line information faxed to [facility], and case management director spoke with [facility], patient to have he dose of IV ABX at 3pm today, and then return to home, daughter to transport to home, [facility] visiting nurses will be out to
patient's home tomorrow for teaching.
Plan; Home with [facility] care IV ABX and [facility] visiting nurses.
[2024-07-19] MEDS: FLUAD (65 yr+) 2024-2025 FORMULA 0.5 ML IM (13:02)
[2024-07-19] MEDS: BUMEX 1 MG IV (13:05)
--- NOTE | 2024-07-19 14:25 | W.PN.ID1 ---
Date of Service
Date of Service: July 19, 2024
Today's Communication
Continue current course of antibiotics.
Assessment / Plan
Right lower lobe pneumonia (CAP)
Parapneumonic effusion
- s/p chest tube
Leukocytosis
- improved
Reported fever
-Remains afebrile at present.
CKD
Hx HTN
Hx RCC
Recommendations:
Currently d#19 abx.
Continue ceftriaxone. Will need to complete a 6-week course of antibiotics. Given prior negative cultures, and overall significant improvement, will complete an additional week of IV antibiotics, with subsequent transition to an oral regimen
(likely cefdinir) to finish out the 6-week course.
Additionally, patient notes that there may be a financial barrier to completing a full 6-week course of IV antibiotics, but is amenable to an additional week.
Home antibiotic infusion sheet placed on paper chart.
Monitor white count temperature curve.
PICC line placement once home infusion set up.
Will follow-up in the outpatient setting.
����������������������������������������������������������
Chief Complaint
-: Pneumonia and Other (Parapneumonic effusion)
Subjective / Review of Systems
Review of Systems: No Fever and No Chills
Vital Signs / Physical Exam
Vital Signs
Vital Signs
Temp Pulse Resp BP Pulse Ox
98.5 F 88 18 113/77 96
07/19/24 07:04 07/19/24 12:46 07/19/24 07:04 07/19/24 12:46 07/19/24 07:04
Physical Exam
Constitutional: No Acute Distress and Comfortable
Head: Normocephalic
Eyes: Sclera Anicteric
Cardiovascular: Regular Rate and S1/S2
Pulmonary: Coarse and Non Labored
Gastrointestinal: Soft, Non Tender and Non Distended
Extremities: Negative Cyanosis or Erythema
Skin: Warm and Dry
Neurological: Awake, Alert and Oriented
Psychological: Calm
Objective Data
Lab Data
Lab Results
07/17/24 09:54
07/19/24 06:45
Estimated Creat Clear 40 ml/min 07/19/24 06:45
Lactic Acid Cancelled 07/09/24 10:46
Total Bilirubin 0.7 mg/dl (0.2-1.3) 07/02/24 04:32
AST 28 U/L (14-36) 07/02/24 04:32
ALT 29 U/L (0-35) 07/02/24 04:32
Alkaline Phosphatase 92 U/L (38-126) 07/02/24 04:32
Most recent labs reviewed.
Micro Results:
07/13/24 09:16 MRSA Screen - Final
Nose No Methicillin Resistant Staphylococcus aureus isolated.
07/09/24 11:46 Body Fluid Culture - Final
Pleural Fluid No Growth After 72 Hours
Gram Stain - Final
07/08/24 15:20 Respiratory Culture - Final
Sputum Gram Stain - Final
07/01/24 15:51 Blood Culture - Final
Blood/Venous No Growth - Final Report
07/01/24 15:51 Blood Culture - Final
Blood/Venous No Growth - Final Report
07/05/24 15:01 Legionella Urinary Antigen - Final
Urine Negative for Legionella pneumophila Serogroup 1 antigen.
A negative result does not rule out the possiblity of
Legionella infection due to other serogroups or species of
Legionella. Clinical correlation is recommended.
Streptococcus pneumoniae Antigen (M - Final
Negative for Streptococcus pneumoniae antigen.
A negative result does not exclude infection with
Streptococcus pneumoniae. Clinical correlation is
recommended.
07/01/24 15:22 Urine Culture - Final
Urine
07/02/24 04:32 MRSA Screen - Final
Nose No Methicillin Resistant Staphylococcus aureus isolated.
Imaging:
07/03/2024 CXR (2 view): Evaluation is limited by patient body habitus. Low lung volumes noted. A right basilar opacification/infiltrate is noted, and appears to have progressed from prior imaging on 07/01/2024.
07/01/2024 CT abdomen/pelvis without contrast: A right lower lobe consolidation with surrounding effusion is suspicious for PNA with parapneumonic effusion. No evidence of acute traumatic injury to the abdomen.
Care Review
Plan reviewed with: Other (Case management)
[2024-07-19] MEDS: HEPARIN SC (15:21)
[2024-07-19] MEDS: STERILE WATER FOR INJECTION 20 ML IV (15:22)
[2024-07-19] MEDS: ROCEPHIN 2000 MG IV (15:22)
[2024-07-19 15:23] VITALS: BP 120/66
--- NOTE | 2024-07-19 15:33 | W.PN.HOSP.TC ---
Today's Communication/Plan
-
d/c home with
Assessment / Plan
Assessment / Plan
CT chest
Right lower lobe consolidation suspicious for pneumonia with small right pleural effusion extending into the major and minor fissures. Cardiomegaly.
CT chest 07/12
There is decreased size of the loculated, small right pleural effusion with fluid in the right minor and major fissures. The posterior approach right pigtail chest tube tip appears within the lateral aspect of the effusion. There is slightly
decreased right basilar opacities, likely due to slightly improving infectious process.
The left lung is clear. No left-sided pleural effusion.
CT chest 07/17
1. Small volume residual right pleural fluid as above, navicular improved as compared with prior. Residual partial atelectasis of the right lower lobe, also improved as compared with prior.
2. Very low lung volumes. Diffuse interstitial and groundglass opacities likely primarily related to hypoaeration atelectasis.
3. Coronary and aortic atherosclerosis. Aneurysmal dilation ascending aorta, 4.5 cm diameter.

1. Right lower lobe pneumonia complicated with empyema
Sepsis -leukocytosis/Hypotension -POA
Pneumothorax ex vacuo
-Legionella/strep urine antigen/blood culture negative.
-Patient currently on empiric antibiotic vancomycin/cefepime
-ID following and help appreciated
-CT chest showing right lower lobe rounded consolidation with parapneumonic effusion
-IRAD did a diagnostic thoracentesis with drainage of 10 cc fluid. TWBC 29 k with PMN ~ 85%, ph <6.8, glu < 30. gram stain neg, culture pending.
-Status post right-sided chest tube placement on 07/10. Repeat CT chest findings as above.
-Status post tPA injection intrapleurally, good drainage post lysis , f/u CXR reviewed
-CT tube has been removed.
-Repeat chest CT showing small pneumothorax ex vacuo at right lower lobe
-ID discussed with patient and plan for 1 more week of IV antibiotic (due to cost reason) followed by Omnicef oral antibiotic course
2. ISAAC on presumed CKD IV
Left nephrectomy with h/o RCC
-Patient creatinine unknown. Admission creatinine of 2.7--> 1.8 today.
-Per daughter her creatinine was as high as 4 recently so this is improved from her baseline.
-US kidney is normal.
-no urinary retention issues.
-Avoid nephrotoxic medication
-Blood pressure controlled with low-dose labetalol. Will remove losartan from home meds.
3. Type 2 diabetes mellitus -uncontrolled
-Patient hemoglobin A1c of 12.7
-Managed by primary care physician, in process of seeing endocrinology-will refer as outpatient
-Diabetes nurse pressure helping and help appreciated.
-Daughter requested to discuss the insulin medication regimen with patient as noncompliant at times - discussed and patient willing to follow up with endocrinology in office.
4. Essential hypertension
-Blood pressure control only labetalol. Continue holding losartan.
5. Chronic back pain
Right foot numbness
-Suspected lumbar radiculopathy has diabetic neuropathy is usually symmetric
-CT abdomen pelvis showing did not show any major spinal changes
-Good palpable pulse on lower extremity
6. HLD
- maintain on crestor
7. Orthostatic hypotension
-Continue using compression stockings
8. Lower extremity edema
Venous stasis dermatitis
-Significant lower extremity edema. Already on Bumex half a milligram
-Lower extremity venous Doppler negative. Erythema from venous congestion and not cellulitis.
-Put patient on Jasper wrap/leg elevation while in bed
-Repeat dose of bumex x1 mg given today. Patient to take oral Bumex 1 mg for 5 days postdischarge.
Heparin subq
CODE STATUS: Full code
Anticipated Discharge: Today
Subjective/Interval History
-
Date of Service: July 19, 2024
no complains overnight
Objective Data
-
Labs:
Laboratory Results
07/19/24
06:45
Sodium 143
Potassium 4.3
Chloride 101
Carbon Dioxide 28
BUN 45 H
Creatinine 1.6 H
Glucose 148 H
Calcium 8.9
Vital Signs:
Vital Signs
Temp Pulse Resp BP Pulse Ox
98.2 F 91 24 120/66 93
07/19/24 15:23 07/19/24 15:23 07/19/24 15:23 07/19/24 15:23 07/19/24 15:23
I&O
07/18/24 07/19/24 07/20/24
06:59 06:59 06:59
Intake Total 1200 / 1200 1380 / 1380
Balance 1200 / 1200 1380 / 1380
Review of Systems
-
Respiratory: Reports No Symptoms
Cardiac: Reports No Symptoms
Abdomen/GI: Reports No Symptoms
Physical Exam
-
General: No Apparent Distress and Comfortable
HEENT: Negative Oxygen
Respiratory: Clear to Auscultation
Cardiac: Regular Rhythm and S1/S2; Negative Murmur or Rub
GI: Soft, Nontender and Nondistended
Musculoskeletal: Edema, Right Lower Extrem and Edema, Left Lower Extrem
Neuro: Awake, Alert, Oriented, No Motor Deficits and Nonfocal/Grossly Intact
Psych: Calm
--- NOTE | 2024-07-19 17:46 | W.DCSUMMARY ---
Discharge Summary
Discharge Data
Date of Admission: 07/01/24
Date of Discharge: 07/19/24
-
Pending Results: No
Hospital Course
Discharging Physician : Dr Miah Milton
Disposition : Home with home care
Primary care physician : Dr Jose Miguel Pickens
Principal Discharge diagnosis :
Right lower lobe pneumonia complicated with parapneumonic effusion/empyema
Sepsis
Acute kidney injury on chronic kidney changes stage III
Uncontrolled type 2 diabetes mellitus
Chronic Discharge diagnosis :
History of left nephrectomy due to renal cell carcinoma
Essential hypertension
Chronic back pain
Hyperlipidemia
Orthostatic hypotension
Hospital Course :
Patient is a 69-year-old female with above-mentioned past medical history came to ER with new onset of generalized weakness/cough/fever which started 2 weeks back. Patient initially felt some improvement at home although symptoms reoccurred mainly
with generalized weakness and was having fall. On initial evaluation in ER patient received abdomen pelvis which showed a right lower lobe consolidation and patient was felt to have right lower lobe pneumonia, started on empiric antibiotics.
Septic workup was done and no clear etiological organism was found during the hospital stay. Patient had slow improvement in symptoms and continued to have fever episode. ID was involved in care for further management as well. A follow-up chest
x-ray was done which showed a new right-sided effusion. Despite 7 days of IV antibiotic therapy patient continued to remain febrile/having pleuritic symptoms. Follow-up CT chest showing persistent infiltrate with new effusion. Interventional
radiology was involved in care and patient had a diagnostic thoracentesis which showed significantly elevated leukocytes with other fluid studies suggesting empyema. Pulmonology was involved in care and based on CT imaging there was concern of
possible small loculation/organizing effusion developing in the area. Intervention today neurology was reconsulted and CT tube was placed. Patient did not have good output and intrapleural tPA/DNase was provided after which patient had a good
response. Follow-up imaging showing improvement in effusion with residual small collection and possible small pneumothorax ex vacuo. CT tube was removed at this point. Pleural fluid culture remains negative till date of discharge. ID recommended
initially total 6 weeks of IV antibiotic course although cost was prohibitive, after discussion with patient, patient was switched to 1 week of further IV antibiotic at discharge followed by oral Omnicef therapy to finish the course. Patient will
require follow-up with pulmonology in office for repeat imaging.
Patient also has uncontrolled diabetes with hemoglobin A1c of 12.7. Diabetes nurse sadaer was following along hospital stay, patient insulin dose was significantly increased in comparison to home dose. Patient daughter reported patient being
noncompliant with medication at time, issues were discussed with patient and patient is willing to follow-up with endocrinology in office.
Patient also had acute kidney injury on top of underlying chronic kidney disease. Renal ultrasound did not show any acute pathology. Patient home medication of losartan/ARB were held. Renal function improved slowly over time. Patient would
benefit with follow-up with nephrology in office periodically as patient likely have diabetic nephropathy. Contact number for nephrology office was provided on discharge instructions.
Patient also has been on Bumex at home with known history of lower extremity swelling. Patient was noted to have worsening lower extremity swelling and was provided dose of IV Bumex. Patient instructed to take higher dose Bumex for few days
postdischarge followed by resumption of previous home dose.
Patient was discharged home with home health care setup.
Important imaging findings :
None
Procedure findings :
None
Discharge Plan
-
Patient Disposition: Home with Home Care
Discharge Diagnosis/Procedures: Right sided pneumonia and empyema. Uncontrolled Diabetes
Condition: Fair
Diet: 2 Gram Sodium and Diabetic, Carb Controlled
Activity: As tolerated
Driving Restrictions: As prior to admission
Bathing Restrictions: OK to Shower
Other Services: VN
Referrals:
Selene Graves MD [Consulting Staff] - in two to four weeks (Call for an appointment for management of uncontrolled diabetes)
Jose Miguel Harman MD [Family Provider] - in one week
Owen Kaplan MD [Active] - (Please call office for a new patient appointment for chronic renal disease )
Bobo Harris MD [Active] - in one to two weeks (Dr. Harris or [facility] [facility]-eventually needs PFTs, radiographic follow-up and sleep study)
Additional Discharge Medication Instructions: -STOP losartan.
-Take 2 Tablets of bumex for 5 days then back to 1 tab daily
-Dose of lantus/novolog has been increased - refer to list
Prescriptions:
New
labetalol 200 mg Tablet
100 mg PO BID Qty: 60 0RF
insulin glargine [Lantus Solostar U-100 Insulin] 100 unit/mL (3 mL) insulin pen
22 unit SC BID Qty: 15 2RF
ceftriaxone 2 gram Recon Soln
2,000 mg IV Q24H Qty: 10 0RF
Rx Instructions:
Till 07/26 and Cefdinir after that
cefdinir 300 mg capsule
300 mg PO BID Qty: 36 0RF
Rx Instructions:
START TAKING ONCE OFF OF IV ANTIBIOTICS
Humalog KwikPen Insulin 200 unit/mL (3 mL) insulin pen
25 unit SC AC Qty: 6 2RF
Continued
bupropion HCl [Wellbutrin SR] 150 mg Tablet Sustained-Release 12 Hr
150 mg PO BID
ergocalciferol (vitamin D2) 1,250 mcg (50,000 unit) Capsule
1,250 mcg PO MO
rosuvastatin [Crestor] 40 mg Tablet
40 mg PO QPM
therapeutic multivitamin Tablet
1 tab PO DAILY
aspirin 81 mg Tablet,Delayed Release (Dr/Ec)
81 mg PO DAILY
Changed
bumetanide 0.5 mg Tablet
See Rx Instructions .ROUTE .COMPLEX Qty: 0 0RF
Rx Instructions:
Take 2 Tablets for next 5 Days THEN
Continue taking 1 Tablet daily
Discontinued
labetalol 200 mg Tablet
200 mg PO BID
insulin lispro 100 unit/mL Solution
15 unit SC AC
losartan 100 mg Tablet
100 mg PO DAILY
insulin glargine [Lantus Solostar U-100 Insulin] 100 unit/mL (3 mL) Insulin Pen
20 unit SC HS
Discharge Orders:
Discharge Patient (As Directed); Ordered 07/19/24
Ordered By: Miah Milton
Discharge Date and Time
Discharge Date/Time: 07/19/24 17:30
Print Language: JAPANESE
== END 2024-07-19 17:30 | disposition home health service (06) | DRG 871 ==
LOC: 4 WEST ACU 17:49
PROVIDERS: Hospitalist; Internal Medicine Infectious Disease; Physician Assistant; Radiology Diagnostic Radiology; Radiology Neuroradiology; Radiology Vascular & Interventional Radiology; ADMITTING PHYSICIAN Internal Medicine; ATTENDING PHYSICIAN Hospitalist; CONSULT PHYSICIAN Internal Medicine Critical Care Medicine; EMERGENCY PHYSICIAN Emergency Medicine; FAMILY PHYSICIAN Internal Medicine; OTHER PHYSICIAN Internal Medicine Infectious Disease
PROC: 0W993ZZ Drainage of Right Pleural Cavity, Percutaneous Approach (ICD-10-PCS; 2024-07-09)
PROC: 0W9930Z Drainage of Right Pleural Cavity with Drainage Device, Percutaneous Approach (ICD-10-PCS; 2024-07-10)
PROC: 3E0L3GC Introduction of Other Therapeutic Substance into Pleural Cavity, Percutaneous Approach (ICD-10-PCS; 2024-07-11)
PROC: 3E0L317 Introduction of Other Thrombolytic into Pleural Cavity, Percutaneous Approach (ICD-10-PCS; 2024-07-11)
PROC: 0WP9X0Z Removal of Drainage Device from Right Pleural Cavity, External Approach (ICD-10-PCS; 2024-07-15)
PROC: 3E02340 Introduction of Influenza Vaccine into Muscle, Percutaneous Approach (ICD-10-PCS; 2024-07-19)
DX: A41.9 Sepsis, unspecified organism (principal); J18.9 Pneumonia, unspecified organism; J86.9 Pyothorax without fistula; J91.8 Pleural effusion in other conditions classified elsewhere; N17.9 Acute kidney failure, unspecified; N18.4 Chronic kidney disease, stage 4 (severe); Z68.41 Body mass index [BMI] 40.0-44.9, adult; J98.11 Atelectasis; I12.9 Hypertensive chronic kidney disease with stage 1 through stage 4 chronic kidney disease, or unspecified chronic kidney disease; E11.22 Type 2 diabetes mellitus with diabetic chronic kidney disease; E11.65 Type 2 diabetes mellitus with hyperglycemia; D25.9 Leiomyoma of uterus, unspecified; G89.29 Other chronic pain; M54.9 Dorsalgia, unspecified; E11.40 Type 2 diabetes mellitus with diabetic neuropathy, unspecified; I95.1 Orthostatic hypotension; M54.16 Radiculopathy, lumbar region; G47.33 Obstructive sleep apnea (adult) (pediatric); D64.9 Anemia, unspecified; E66.9 Obesity, unspecified; K57.30 Diverticulosis of large intestine without perforation or abscess without bleeding; E78.5 Hyperlipidemia, unspecified; E87.5 Hyperkalemia; I87.2 Venous insufficiency (chronic) (peripheral); R29.6 Repeated falls; R60.0 Localized edema; R42 Dizziness and giddiness; W01.0XXA Fall on same level from slipping, tripping and stumbling without subsequent striking against object, initial encounter; Y93.9 Activity, unspecified; Y92.9 Unspecified place or not applicable; Z85.528 Personal history of other malignant neoplasm of kidney; Z90.5 Acquired absence of kidney; Z79.4 Long term (current) use of insulin; Z23 Encounter for immunization; Z11.52 Encounter for screening for COVID-19; Z79.82 Long term (current) use of aspirin
CPT/HCPCS: 88305; 32555; 32557; 32561; 70450; 71045; 71046; 71250; 73030; 74176; 76604; 76770; 80048; 80053; 80202; 81003; 81015; 82010; 82728; 82805; 82945; 82962; 83036; 83540; 83605; 83615; 83735; 83986; 84157; 84443; 84484; 85025; 85027; 87015; 87040; 87070; 87086; 87205; 87449; 87811; 87899; 88112; 89051; 90662; 93005; 93306; 93971; 96361; 96374; 96375; 97110; 97116; 97162; 97166; 97530; 97535; 99285; C1729; C1769; G0008; J2997

== ENCOUNTER → 2024-07-25 09:46 | Outpatient (REF) | payer MEDICARE, SELFPAY ==
[2024-07-25 10:30] LABS: % Basophils 0.8 % (0-2); % Eosinophils 5.5 % (0-6); % Immature Granulocytes 0.4 % (0-0.5); % Lymphocytes 16.1 % (20.5-51.1); % Monocytes 7.7 % (1.7-9.3); % Neutrophils 69.5 % (42.2-75.2); Absolute Basophils 0.1 10^3/uL (0-0.2); Absolute Eosinophils 0.4 10^3/uL (0-0.7); Absolute Lymphocytes 1.2 10^3/uL (1.2-3.4); Absolute Monocytes 0.6 10^3/uL (0.1-0.6); Absolute Neutrophils 5.2 10^3/uL (1.4-6.5); Hematocrit 34.2 % (37.0-47.0); Hemoglobin 10.6 g/dL (12.0-16.0); Mean Corpuscular Hgb 26.6 pg (27.0-31.0); Mean Corpuscular Volume 85.7 fL (81.0-99.0); Mean Platelet Volume 8.9 fL (7.4-10.4); Nucleated Red Blood Cells % 0 %; Platelet Count 203 10^3/uL (130-400); Red Blood Cell Count 3.99 10^6/uL (4.20-5.40); Red Cell Dist. Width 16.5 % (11.5-14.5); White Blood Cell Count 7.4 10^3/uL (4.8-10.8)
[2024-07-25 10:48] LABS: Blood Urea Nitrogen 31 mg/dl (7-17); Calcium 9.2 mg/dl (8.4-10.2); Carbon Dioxide 31 mmol/L (22-30); Chloride 102 mmol/L (98-107); Glucose 180 mg/dl (70-99); Potassium 4.4 mmol/L (3.5-5.1); Sodium 144 mmol/L (135-145); eGFR 40.73
== END ==
LOC: REG 09:46
PROVIDERS: ATTENDING PHYSICIAN Internal Medicine Infectious Disease; FAMILY PHYSICIAN Family Medicine
DX: J90 Pleural effusion, not elsewhere classified (principal)
CPT/HCPCS: 36415; 80048; 85025

== ENCOUNTER → 2024-08-16 15:57 | Outpatient (REF) | payer MEDICARE, SELFPAY | LOC: DHSLP 15:57 | PROVIDERS: ATTENDING PHYSICIAN Internal Medicine Critical Care Medicine; FAMILY PHYSICIAN Family Medicine | DX: G47.33 Obstructive sleep apnea (adult) (pediatric) (principal) | CPT/HCPCS: 95806 ==

== ENCOUNTER → 2024-09-01 13:31 | Outpatient (REF) | payer MEDICARE, SELFPAY | LOC: HWRAD 13:31 | PROVIDERS: ATTENDING PHYSICIAN Nurse Practitioner Adult Health; FAMILY PHYSICIAN Family Medicine | DX: J18.9 Pneumonia, unspecified organism (principal); J86.9 Pyothorax without fistula | CPT/HCPCS: 71046 ==

== ENCOUNTER → 2025-03-26 14:29 | Outpatient (REF) | payer MEDICARE, SELFPAY | LOC: HWRAD 14:29 | PROVIDERS: ATTENDING PHYSICIAN Podiatrist Foot & Ankle Surgery; FAMILY PHYSICIAN Family Medicine | DX: M19.071 Primary osteoarthritis, right ankle and foot (principal) | CPT/HCPCS: 73610 ==

== ENCOUNTER → 2025-04-09 15:45 | Outpatient (REF) | payer MEDICARE, SELFPAY | LOC: HWRAD 15:45 | PROVIDERS: ATTENDING PHYSICIAN Podiatrist Foot & Ankle Surgery; FAMILY PHYSICIAN Family Medicine | DX: M19.071 Primary osteoarthritis, right ankle and foot (principal); M19.072 Primary osteoarthritis, left ankle and foot | CPT/HCPCS: 73610; 73630 ==

== ENCOUNTER 2025-04-18 13:11 | Emergency (ER) | payer MEDICARE, SELFPAY ==
[2025-04-18 13:12] VITALS: BP 137/93
[2025-04-18 14:28] VITALS: BP 136/81; BMI 38.3
--- NOTE | 2025-04-18 17:08 | ED.GENMED ---
History of Present Illness
General
Chief Complaint: Vascular Symptoms
Time Seen by Provider: 04/18/25 14:19
History of Present Illness
History of Present Illness:
69-year-old female presents the emergency department for evaluation of severe pain secondary to varicose veins. She notes that the veins seem to be progressing up the leg with worsening pressure in the legs. She has tried compression stockings
without sustained relief. Denies any lower extremity numbness. She has an appointment in approximately 2 months for a vein center
Review of Systems
Review of Systems
Allergies reviewed?: Yes
All Other Systems: ROS reviewed and negative except as documented in HPI and ROS
Phy Exam
Physical Exam
Physical Exam:
GEN: Well appearing, NAD, WDWN
HEENT: Oral mucosa moist, no scleral icterus
Cardiac: Regular rate
Lung: No respiratory distress, no tachypnea
MSK: No gross deformity or injuries. Significant varicosities to bilateral lower extremities, questionable left calf edema
Skin: Good color, no pallor or jaundice, no rashes
Neuro: AO x3, moves all extremities freely
Psych: Calm, cooperative
Course
Orders/Labs/Results
Orders:
Orders
04/18/25 14:28
Venous Doppler Lwr Ext Left [US Periph Venous LOWER Ext LT] Urgent
Comment:
Reason For Exam: L calf swelling/varicose veins
Vital Signs
Initial and Last Documented VS:
Initial Vital Signs
Temp Pulse Resp BP Pulse Ox
98.1 F 75 18 137/93 99
04/18/25 13:12 04/18/25 13:12 04/18/25 13:12 04/18/25 13:12 04/18/25 13:12
Last Documented Vital Signs
Temp Pulse Resp BP Pulse Ox
98.6 F 82 16 136/81 99
04/18/25 14:28 04/18/25 14:28 04/18/25 14:28 04/18/25 14:28 04/18/25 17:11
MDM/Problems Addressed
MDM/Problems Addressed:
No DVT identified on ultrasound. Encourage compression stockings and aspirin as needed, elevation as well. Outpatient follow-up with vein center encouraged
*Pulse Oximetry
SaO2: 99
Oxygen Mode of Delivery: Room air
Patient hypoxic: no
*Critical Care Note
Total Time (30-74mins, 75-104mins- exclusive of procedures): Not Applicable
ED Attending Note
-
Portions of this chart may have been created with voice recognition software.� Occasional wrong word or��sound alike� substitutions may have occurred due to the inherent limitations of voice recognition software.
Discharge Plan
Departure
Patient Disposition: Home (Routine Discharge)
Date of Disposition: 04/18/25
Time of Disposition: 17:08
Patient with high blood pressure during this ER visit?: No
Discharge Problem:
Varicose veins of both lower extremities
Instructions: Varicose Veins (DC)
Prescriptions:
No Action
bupropion HCl [Wellbutrin SR] 150 mg Tablet Sustained-Release 12 Hr
150 mg PO BID
ergocalciferol (vitamin D2) 1,250 mcg (50,000 unit) Capsule
1,250 mcg PO MO
rosuvastatin [Crestor] 40 mg Tablet
40 mg PO QPM
therapeutic multivitamin Tablet
1 tab PO DAILY
aspirin 81 mg Tablet,Delayed Release (Dr/Ec)
81 mg PO DAILY
labetalol 200 mg Tablet
100 mg PO BID Qty: 60 0RF
insulin glargine [Lantus Solostar U-100 Insulin] 100 unit/mL (3 mL) insulin pen
22 unit SC BID Qty: 15 2RF
ceftriaxone 2 gram Recon Soln
2,000 mg IV Q24H Qty: 10 0RF
Rx Instructions:
Till 07/26 and Cefdinir after that
cefdinir 300 mg capsule
300 mg PO BID Qty: 36 0RF
Rx Instructions:
START TAKING ONCE OFF OF IV ANTIBIOTICS
bumetanide 0.5 mg Tablet
See Rx Instructions .ROUTE .COMPLEX Qty: 0 0RF
Rx Instructions:
Take 2 Tablets for next 5 Days THEN
Continue taking 1 Tablet daily
Humalog KwikPen Insulin 200 unit/mL (3 mL) insulin pen
25 unit SC AC Qty: 6 2RF
Referrals:
Stephen Harman MD [Family Provider, Family Practice]
Activity Restrictions/Additional Instructions:
Elevate the legs
Take full dose of aspirin daily instead of your baby aspirin
Contact vein clinic for earlier appt if possible
Interventions
Interventions:
*Risk Screen - Suicide Last Done: 04/18/25 13:12
*General Assessment Last Done: 04/18/25 13:12
*Neglect/Abuse Screening Last Done: 04/18/25 13:12
*ED- Fall Risk Assessment Last Done: 04/18/25 14:28
*ED COVID-19 Vaccine History Last Done: 04/18/25 14:28
*Nursing Disposition Last Done: 04/18/25 17:26
ED- Cardiac Assessment Last Done: 04/18/25 14:28
ED- Pulmonary Assessment Last Done: 04/18/25 14:28
ED-Peripheral Vascular Assessment Last Done: 04/18/25 14:28
ED-Skin Assessment Last Done: 04/18/25 14:28
Discharge Date and Time
Discharge Date/Time: 04/18/25 17:27
Print Language: CYPRIOT
== END 2025-04-18 17:27 | disposition home or self-care (01) ==
LOC: EMR 13:11
PROVIDERS: EMERGENCY PHYSICIAN Emergency Medicine; FAMILY PHYSICIAN Family Medicine
DX: I83.93 Asymptomatic varicose veins of bilateral lower extremities (principal); R22.42 Localized swelling, mass and lump, left lower limb
CPT/HCPCS: 99284; 93971

== ENCOUNTER → 2025-05-17 14:17 | Outpatient (REF) | payer MEDICARE, SELFPAY | LOC: RAD 14:17 | PROVIDERS: ATTENDING PHYSICIAN Family Medicine | DX: I83.813 Varicose veins of bilateral lower extremities with pain (principal) | CPT/HCPCS: 93970 ==